=== PATIENT | female | born 1985 | race Caucasian/White ===

== ENCOUNTER 2018-03-25 15:57 | Emergency (ER) | payer MEDICAID, SELFPAY ==
[2018-03-25 15:59] VITALS: BP 143/107; PULSE 108; RESP 18; TEMP 36.7; O2SAT 100; BMI 44.9
--- NOTE | 2018-03-25 16:14 | EKG12_ITS ---
Test Reason : CP Blood Pressure : / mmHG Vent. Rate : 118 BPM Atrial Rate : 118 BPM P-R Int : 170 ms QRS Dur : 080 ms QT Int : 330 ms P-R-T Axes : 034 017 007 degrees QTc Int : 462 ms Sinus tachycardia Septal infarct , age undetermined T wave abnormality, consider inferior ischemia Abnormal ECG Confirmed by DAYANARA HESS, ZHEN ([id number]), deputy editor in chief HERMINIA ALCARAZ ([id number] on 03/27/2018 5:09:13 PM Referred By: BRADLEY Confirmed By:ZHEN NICHOLE MD
--- NOTE | 2018-03-25 16:15 | CT_ITS ---
STUDY: CT BRAIN WITHOUT CONTRAST REASON FOR EXAM: Female, 33 years old. Weakness. RADIATION DOSAGE (If Supplied By Facility): CTDIvol = ( 44.99 ) mGy, DLP = ( 863.60 ) mGycm TECHNIQUE: Transaxial CT imaging of the brain was performed without administration of intravenous contrast material. Individualized dose optimization techniques were used for this CT. COMPARISON: None. FINDINGS: There is no acute bleed or infarct. There are normal white matter tracts. The ventricles are normal in configuration. There is no hydrocephalus. The visualized paranasal sinuses are clear. The mastoid air cells are well aerated. There is no skull fracture. CT/Brain/Head without Contrast IMPRESSION: No acute intracranial abnormality. Electronically Signed: Toby Sheppard, at 17:58 EST Tel , Service support ,
--- NOTE | 2018-03-25 16:15 | CT_ITS ---
STUDY: CTA CHEST REASON FOR EXAM: Female, 33 years old. Left arm numbness, weakness, increased SOB and chest pain x several weeks. Hx Marcus's syndrome, aortic stenosis, hypertension, asthma. RADIATION DOSAGE (If Supplied By Facility): CTDIvol = ( 13.40 ) mGy, DLP = ( 621.11 ) mGycm TECHNIQUE: The examination was performed with the intravenous administration of 100mL ml of Isovue 370 contrast material. Post-processing of the angiographic images was performed, with multiplanar reformation and 3D reconstruction. Individualized dose optimization techniques were used for this CT. COMPARISON: None. FINDINGS: Normal enhancement of the main pulmonary artery and right and left pulmonary arteries. Normal enhancement of the bilateral peripheral pulmonary arteries. There is no demonstrated pulmonary embolism. Normal thoracic aorta and visualized great vessels. There is no demonstrated aortic dissection. Normal heart and pericardium. Normal mediastinum. Normal hilar regions. Normal visualized trachea and bronchi. The lungs are well expanded. Normal pulmonary parenchyma. Normal pleura. Normal chest wall structures. There are degenerative changes of thoracic spine. Normal visualized upper abdomen. CT/CTA Chest W/WO Contrast IMPRESSION: Normal CTA chest examination, without a demonstrated pulmonary embolism or arterial dissection. Electronically Signed: Jose Fonseca MD at 18:04 EST , Service support ,
--- NOTE | 2018-03-25 16:34 | RAD_ITS ---
STUDY: X-RAY CHEST REASON FOR EXAM: Female, 33 years old. Weakness with chest pain TECHNIQUE: Single view of the chest was obtained COMPARISON: October 09, 2016 chest radiograph FINDINGS: No lung consolidation, pleural effusion or pneumothorax. Chronic size is stable. Osseous structures demonstrate no acute abnormalities. Minimal widening of the mediastinum possibly projectional. IMPRESSION: No evidence for focal airspace disease. Minimal widening of the mediastinum possibly projectional. However correlation with clinical findings and chest CT as clinically deemed essential suggested Electronically Signed: Dariel Bain, at 16:55 EST Tel , Service support , RAD/Chest 1 View (Portable)
[2018-03-25] MEDS: Aspirin 81 MG TAB.CHEW 324 MG PO (16:37)
[2018-03-25] MEDS: Morphine 4 MG/ML Syringe IV (16:38)
[2018-03-25] MEDS: Ondansetron 4 MG/2 ML Vial IV (16:38)
[2018-03-25 16:40] LABS: Basophil# 0.05 X10^3/uL; Basophil% 0.6 % (0-1); Eosinophil# 0.17 X10^3/uL; Hematocrit 40.3 % (37-47); Hemoglobin 13.5 g/dl (12.0-15.0); Lymphocyte % 21.3 % (19-41); Mean Corp Hgb Conc 33.5 g/gl (32-36); Mean Corpuscular Hgb 30.5 pg (27.0-32.0); Mean Platelet Vol. 9.8 fl (6.2-12.0); Monocyte# 0.37 X10^3/uL; Monocyte% 4.4 % (0-10); Neutrophil # 5.96 X10^3/uL (2.7-7.7); Neutrophil % 70.3 % (47-70); Platelet Count 245 K/mm3 (150-450); RBC Distribution Width CV 13.3 % (11.6-14.6); RBC Distribution Width SD 43.3 fl (35.1-43.9); Red Blood Count 4.43 M/mm3 (4.2-5.4); White Blood Count 8.5 K/mm3 (4.4-11.0)
[2018-03-25 16:41] LABS: POSITIVE COUNT NO; POSITIVE DIFFERENTIAL NO; POSITIVE MORPHOLOGY NO
[2018-03-25 16:42] VITALS: O2SAT 97
[2018-03-25 16:57] LABS: Anion Gap 11 (5-15); BUN 10 mg/dL (7-18); BUN/Creat Ratio 15.3 RATIO (10-20); Calcium,Total 9.3 mg/dL (8.5-10.1); Chloride 104 mmol/L (98-107); Creatinine, Serum 0.65 mg/dL (0.55-1.02); EST Glomerular Filtration Rate 111 mL/min (>60); Est Glom Filt Rate - Afr Amer 134 mL/min (>60); Estimated Creatinine Clearance 187.75 ml/min; Glucose 209 mg/dL (74-106); Potassium 3.6 mmol/L (3.5-5.1); Sodium Level 140 mmol/L (136-145)
--- NOTE | 2018-03-25 17:22 | ED.VISSUMM ---
- ER Visit Summary Date of Service: 03/25/18 Chief Complaint: Left arm pain History of Present Illness: The patient is a 33 F presenting with left arm pain. She also complains of chest pain and shortness of breath which has been intermittent for the past 2 weeks. She has a history of chronic chest pain. She does not recall any injury to her left arm. She is right-handed. She initially complained of left arm weakness but states it is more of a pain with range of motion. She has pain with range of motion of her left arm. She has a history of bicuspid aortic valve, aortic aneurysm, Marcus syndrome. Physical Examination: Vitals are stable. Patient is afebrile. Alert no acute distress. HEENT exam is unremarkable. Neck is mild tenderness with no step-off Lungs are clear and equal bilaterally. Heart is regular rate and rhythm. Abdomen is soft nontender nondistended. Extremities left shoulder tenderness with active full range of motion Skin is warm and dry. No focal neurologic deficit. Normal strength and sensation. NIH 0. Remainder of exam is unremarkable. Emergency Department Course and Treatment: Patient was given aspirin, morphine, Zofran. EKG is sinus tachycardia 118, unchanged from previous. Chest x-ray shows no acute process. CT head shows no acute process. CTA chest is normal. CBC, chemistries unremarkable other than glucose of 209. Troponin is negative. Patient has had intermittent chest pain for the past 2 weeks. She declined delta troponin. She will follow-up with her primary care physician. She is advised to return to ED for worsening complaints. Disposition: Discharge home Impression: Chest pain, left arm pain This note was generated with [employer]ggi[employer] dictation software. It may contain incorrect words, spelling, and punctuation that were not noted in review of the chart prior to signing ED Disposition - Plan for ED Patient: Chief Complaint: Weakness Referrals: Yina Brock MD [Primary Care Provider] -
[2018-03-25 18:22] VITALS: BP 134/89; PULSE 119; RESP 23; O2SAT 99
[2018-03-25 18:36] VITALS: BP 114/89; PULSE 90; RESP 19; O2SAT 97
--- NOTE | 2018-03-25 18:37 | ED.DEP ---
ED Disposition - Plan for ED Patient: Chief Complaint: Weakness Instructions: ED Chest Pain Atypical Unkn Cause Referrals: Yina Brock MD [Primary Care Provider] -
== END 2018-03-25 18:46 | disposition home or self-care (01) ==
PROVIDERS: Emergency Provider Emergency Medicine; Family Provider Internal Medicine; PCP Internal Medicine
DX: R07.9 Chest pain, unspecified (principal); M79.602 Pain in left arm; R06.00 Dyspnea, unspecified; G89.29 Other chronic pain; Q23.1 Congenital insufficiency of aortic valve; I71.9 Aortic aneurysm of unspecified site, without rupture; Q96.9 Turner's syndrome, unspecified; J45.909 Unspecified asthma, uncomplicated; E03.9 Hypothyroidism, unspecified; Z79.899 Other long term (current) drug therapy
CPT/HCPCS: 70450; 71045; 71275; 80048; 84484; 85025; 93005; 96374; 96375; 99285; Q9967; A4216; J2405

== ENCOUNTER 2018-03-28 18:05 | Emergency (ER) | payer MEDICAID, SELFPAY ==
[2018-03-28 18:06] VITALS: BP 136/101; PULSE 124; RESP 16; TEMP 36.1; O2SAT 99; BMI 44.9
[2018-03-28] MEDS: 0.9% Normal Saline 1,000 ML 999 ML IV (19:54)
[2018-03-28] MEDS: Ondansetron 4 MG/2 ML Vial IV (19:54)
[2018-03-28 19:55] VITALS: BP 148/118; BP 149/114; BP 153/107; PULSE 115
[2018-03-28 20:06] VITALS: BP 149/114; PULSE 127; RESP 18; O2SAT 100
[2018-03-28 20:16] LABS: Absolute Lymphocyte Count 1.92 X10^3/ul (0.83-4.51); Absolute Neutrophil Count 4.9 X10^3/uL (2.0-7.7); Basophil# 0.03 X10^3/uL; Basophil% 0.4 % (0-1); Eosinophil# 0.11 X10^3/uL; Eosinophils% 1.5 % (0-5); Hematocrit 37.7 % (37-47); Hemoglobin 12.4 g/dl (12.0-15.0); Lymphocyte # 1.92 X10^3/ul (4.0); Lymphocyte % 25.5 % (19-41); Mean Corp Hgb Conc 32.9 g/gl (32-36); Mean Corpuscular Volume 91.3 fL (81-99); Mean Platelet Vol. 10.1 fl (6.2-12.0); Monocyte# 0.46 X10^3/uL; Monocyte% 6.1 % (0-10); Neutrophil # 4.89 X10^3/uL (2.7-7.7); Neutrophil % 64.8 % (47-70); Platelet Count 242 K/mm3 (150-450); RBC Distribution Width CV 13.1 % (11.6-14.6); RBC Distribution Width SD 43.5 fl (35.1-43.9); Red Blood Count 4.13 M/mm3 (4.2-5.4); White Blood Count 7.5 K/mm3 (4.4-11.0)
--- NOTE | 2018-03-28 20:17 | ED.RN ---
small amount of soft black stool was noted in hat after going to the bathroom.
[2018-03-28 20:20] LABS: POSITIVE COUNT NO; POSITIVE DIFFERENTIAL NO; POSITIVE MORPHOLOGY NO
--- NOTE | 2018-03-28 20:32 | ED.DCSUM_ITS ---
History of Present Illness Chief Complaint: GI Bleed Informant: Patient Onset: 06-15 Context: Gradual Onset Timing: Intermittent - worse today Quality: black Location: stool Current Severity: Moderate Maximum Severity: Moderate Worsened by: nothing in particular Relieved by: nothing Associated Symptoms: today, hematemesis. 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 Does not take any other NSAIDs. Had an EGD at one point in the past but no known history of peptic ulcer disease. Some lightheadedness today but no near syncope. History of intermittent chest pain and shortness of breath, those symptoms are chronic and unchanged in the last several days. Prior similar symptoms: No Recent Illness/Hospitalization: No - Past Medical History (1) Marcus syndrome Status: Chronic (2) Congenital bicuspid aortic valve Status: Chronic (3) Pseudocoarctation of aorta, congenital Status: Chronic Past Medical History - Allergies and Home Meds Allergies/Adverse Reactions: Allergies doxycycline Adverse Reaction (Verified 03/28/18 18:06) Abd cramps/diarrhea Primary Care Physician: Yina Brock MD [Primary Care Provider] - Surgical History: appendectomy Smoking Status: Never smoker - Family History Maternal Family History: Reports: Diabetes Review of Systems General: Reports: Malaise. Denies: Chills, Fever, Sweats Eyes: Denies: Visual changes - bilaterally, Diplopia ENT: Denies: Rhinorrhea, Sore throat Cardiovascular: Reports: Chest pain. Denies: Palpitations Respiratory: Reports: Dyspnea. Denies: Cough, Sputum, Dyspnea on exertion Gastrointestinal: Reports: Abdominal pain, Nausea, Vomiting, Melena. Denies: Diarrhea, Hematochezia Genitourinary: Denies: Dysuria, Hematuria, Frequency Musculoskeletal: Denies: Back pain, Swelling, Extremity Pain Skin: Denies: Rash, Wounds Neurological: Denies: Headache, Weakness, Numbness Allergy: Denies: Swelling of the mouth, Swelling of the tongue Physical Exam Vital Signs/Narrative: Vital Signs Temp Pulse Pulse Pulse Pulse Resp BP 03/28/18 20:06 127 H 18 149/114 H 03/28/18 19:55 115 H 115 H 115 H 03/28/18 18:06 97 F L 124 H 16 136/101 H BP BP BP Pulse Ox 01/16/19 20:06 100 03/28/18 19:55 153/107 H 148/118 H 149/114 H 03/28/18 18:06 99 Inital Vital Signs reviewed: Yes General: Well nourished, Well developed, Obese, - - nad Head: Normocephalic, Atraumatic Eyes: Perrl, EOMI ENT: Moist mucous membranes, No rhinorrhea Neck: Supple, Nontender Cardiovascular: Regular rate, Regular rhythm, No murmurs Respiratory: No distress, CTA bilaterally, Chest nontender Abdomen: Soft, Nontender, Nondistended, Normal bowel sounds Rectal: Guaiac positive - black stool, no gross blood, Nontender Back: Nontender, Normal Inspection Extremities: Nontender, No edema Skin: Normal color, No rash Neurological: Alert, Oriented x3, Cranial nerves II-XII grossly intact, Normal Strength, Normal Sensation Psychological: Normal affect Diagnostic/Tx/Re-eval 03/28/18 20:30 Stool Stool Occult Blood (ZACK) - Final Occult Blood Positive Laboratory Results 03/28/18 03/28/18 03/28/18 19:14 19:14 19:14 WBC 7.5 RBC 4.13 L Hgb 12.4 Hct 37.7 MCV 91.3 MCH 30.0 MCHC 32.9 RDW 13.1 RDW Differential 43.5 Plt Count 242 MPV 10.1 Immature Gran % (Auto) 1.700 H Neut % (Auto) 64.8 Lymph % (Auto) 25.5 Russell % (Auto) 6.1 Eos % (Auto) 1.5 Baso % (Auto) 0.4 Absolute Neuts (auto) 4.9 Absolute Lymphs (auto) 1.92 Total Counted Not Reportable Sodium 139 Potassium 3.8 Chloride 106 Carbon Dioxide 24.0 Anion Gap 9 BUN 17 Creatinine 0.58 Estim Creat Clear Calc 210.41 Est GFR (MDRD) Af Amer 152 Est GFR (MDRD) Non-Af 125 BUN/Creatinine Ratio 29.1 H Glucose 127 H Calcium 9.3 Blood Type O POSITIVE Antibody Screen NEGATIVE - Medical Decision Making Hemoglobin is 12.4, her BUN is not elevated, as one would expect with an upper GI bleed. However, with hematemesis and melena, I suspect that she does indeed have an upper GI bleed. She has seen no bright red blood per rectum or dark red blood, and her hemoglobin is stable, so she probably has a stable bleed. She wa s tachycardic here for a while so we monitored her here for an extended period of time, but it seemed that she was having episodes of bronchospasm and every time she coughed she would send her heart rate into the 120s for period of time but it would come back down to around 100. She has a history of tachycardia as well and states that is not unusual for her. She does not feel dizzy after liter of fluid. She kept down oral liquids and ice chips after Zofran and Phenergan, and is feeling better. I offered admission but she prefers to go home if able, I think that is a reasonable thing to try at this time. She has no insurance and prefers not to be admitted if possible. She will be referred to a PCP and given a discount prescription card, she was given Protonix 80 mg IV here and will be prescribed PPI to take at home and advised to follow-up. Encouraged to return for worsening or inability to keep oral pills/liquids down. She is comfortable with this plan. Also, left a message with social work so that they may check on patient's ability to get medications as an outpatient, and to check on patient's status. ED Disposition - Plan for ED Patient: Disposition: Home or Assisted Living Chief Complaint: GI Bleed Diagnosis: Upper GI bleeding Instructions: ED Bleed UGI Stable Prescriptions: Ondansetron [Zofran Odt] 8 mg PO Q8H PRN PRN #12 tab PRN Reason: Nausea Omeprazole 40 mg PO DAILY #30 capsule.dr Referrals: Yina Brock MD [Primary Care Provider] - As soon as possible
[2018-03-28 21:03] LABS: Anion Gap 9 (5-15); BUN 17 mg/dL (7-18); BUN/Creat Ratio 29.1 RATIO (10-20); Calcium,Total 9.3 mg/dL (8.5-10.1); Chloride 106 mmol/L (98-107); Creatinine, Serum 0.58 mg/dL (0.55-1.02); EST Glomerular Filtration Rate 125 mL/min (>60); Est Glom Filt Rate - Afr Amer 152 mL/min (>60); Glucose 127 mg/dL (74-106); Potassium 3.8 mmol/L (3.5-5.1); Sodium Level 139 mmol/L (136-145)
[2018-03-28] MEDS: proMETHazine 25 MG/ML Syringe 12.5 MG IV (21:23)
[2018-03-28 21:25] VITALS: BP 143/95; PULSE 119; RESP 19; O2SAT 98
--- NOTE | 2018-03-28 22:13 | ED.RN ---
PATIENT KEEPS HAVING THESE COUGHING EPISODES THAT TAKE HER BREATH. HX OF ASTHMA, I WILL LET DR. THAYER KNOW.
--- NOTE | 2018-03-28 22:24 | ED.RN ---
DR. CHOU MADE AWARE OF PATIENT'S COUGH. I LISTENED TO HER LUNGS AND THEY ARE CLEAR.
[2018-03-28 23:18] VITALS: BP 129/83; PULSE 108; RESP 13; O2SAT 96
[2018-03-28 23:43] VITALS: BP 114/81; PULSE 99; RESP 21; O2SAT 98
--- OUTSIDE RECORDS SUMMARY | 2018-06-02 17:06 | XMS RPT_ITS ---
:1985 Author Organization OH[facility] Care Team Providers Name Role Phone RAGHAV QURESHI (HUMBERTO) Referring Unavailable Talampas, Yina Primary Care Unavailable Lise Chan Attending Unavailable Talampas, Yina Primary Care Unavailable LISA THAYER Attending Unavailable Talampas, Yina Primary Care Unavailable David Wellington Admitting Unavailable David Wellington Attending Unavailable Mac Olivarez Consulting Unavailable David Wellington Attending Unavailable Davidampas, Yina Primary Care Unavailable David Wellington Admitting Unavailable David Wellington Attending Unavailable Yina Brock Primary Care Unavailable Mac Olivarez Consulting Unavailable David Wellington Consulting Unavailable PROBLEMS PROBLEMS No Problem Records FoundPROCEDURES PROCEDURES No Procedure Records FoundRESULTS RESULTS 12 LEAD ELECTROCARDIOGRAM Observed: 04/02/2018 Status: F Source: [place] 9:01 AM [facility] Cardiovascular Services [address] [place] [address] 12 Lead EKG 03/31/18 0545 MR#: [id number] Acct: [id number] Name: JULIANNA BRIDGES Rep #: [id number] : 1985 33 From: Mark Sheehan MD Attending Dr: David Wellington MD Status: DIS DIMITRIS Ordering Dr: Miguel Ly MD Date: 03/31/18 Location: [facility] Sex: F C Admitted: 03/31/18 Test Reason : GI BLEED Blood Pressure : / mmHG Vent. Rate : 095 BPM Atrial Rate : 095 BPM P-R Int : 158 ms QRS Dur : 072 ms QT Int : 380 ms P-R-T Axes : -05 -02 -03 degrees QTc Int : 477 ms Normal sinus rhythm Normal ECG Confirmed by DAYANARA HESS, MARK ([id number]), editor in chief NOE MONTES DE OCA ([id number]) on 04/02/2018 9:01:06 AM Referred By: GUILLERMO Confirmed By:MARK SHEEHAN MD 04/02/18 0901 Date Mark Sheehan MD CC: David Wellington MD; Miguel Ly MD; Yina Brock MD Signed DISCHARGE SUMMARY Observed: 04/01/2018 Status: F Source: [place] 10:17 AM [facility] REPOSITORY [facility] Medical Records Department [address] [place] [address] Discharge Summary 04/01/18 1006 MR#: [id number] Acct: [id number] Name: JULIANNA BRIDGES Rep #: [id number] : 1985 33 From: Davdi Wellington MD PCP: Yina Brock MD Status: ADM DIMITRIS Y Location: [place] [address] Discharge Date and Diagnosis - Problem List Patient Problems: Active and Suspected Problems Upper GI bleed (Acute) Date of Admission: 03/31/18 Date of Discharge: 04/01/18 - Primary Discharge Diagnosis Active and Suspected Problems Upper GI bleed (Acute) - Secondary Discharge Diagnosis Chronic Problems Marcus syndrome (Chronic) Hypothyroidism (Chronic) 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 Upper GI bleed secondary to gastritis: An NG tube was placed in the ED. Patient admitted to the stepdown unit started on Protonix drip, ordered H AND H every 6 typed and screened and consultation was placed to general surgery did speak to Dr. Olivarez patient underwent EGD by Dr. Olivarez on 04/01/2018 findings included gastritis. Patient was discharged home on PPI. 2. 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 Hypertension-blood pressure controlled, home medications continued with dose adjustment as needed 4. Hypothyroidism-patient is on levothyroxine home dose continued 5. Dyslipidemia-patient is on statin therapy, continued at home dose 6. DVT prophylaxis bilateral SCDs Patient Problems: Active and Suspected Problems Upper GI bleed (Acute) - Physical Exam General: Alert HEENT: Atraumatic Neck: Supple Lungs: Clear to auscultation Cardiovascular: Regular rate Psych/Mental Status: Normal Affect Vital Signs Temp Pulse Resp BP Pulse Ox 97.8 F 86 16 112/71 99 04/01/18 09:30 04/01/18 09:33 04/01/18 09:30 04/01/18 09:30 04/01/18 09:30 Oxygen Delivery Method Room Air Weight: 100.4 kg Body Mass Index (BMI) 46.2 Intake and Output for Last 24 Hours Intake Total 2635 / 2635 1070 / 1070 Output Total 800 / 800 Balance 1835 / 1835 1070 / 1070 Laboratory Tests Past 24 Hrs WBC RBC Hgb 10.9 L 10.7 L Hct 33.2 L 32.6 L WBC 8.4 RBC 3.65 L Hgb 11.0 L Cancelled Hct 33.7 L Cancelled MCV 92.3 MCH 30.1 MCHC 32.6 RDW 13.4 RDW Differential 44.7 H WBC Discharge Diet: No Restrictions Home Medications: Medications to take at Discharge Albuterol Sulfate [Proventil Hfa] 6.7 gm IH PRN PRN 02/21/13 Metoprolol Tartrate [Lopressor (beta claire)] 50 mg PO BID 02/21/13 Albuterol Aerosols [Ventolin Aerosols] 2.5 mg INHALATION Q4HWA.RT PRN #25 vial.neb. 01/01/16 Losartan Potassium 50 mg PO DAILY 10/09/16 Atorvastatin Calcium [Lipitor] 20 mg PO QHS 03/25/18 Levothyroxine [Synthroid] 150 mcg PO DAILY 03/25/18 Aspirin [Aspirin, Baby] 81 mg PO QHS 03/28/18 Pantoprazole Sodium [Protonix] 40 mg PO DAILY #90 tablet 04/01/18 Following Prescrptions Were Given to Patient: Pantoprazole Sodium [Protonix] 40 mg PO DAILY #90 tablet Primary Care Physician: Yina Brock MD [Primary Care Provider] - Disposition: Home Minutes spent on discharge:: 35 Patient Condition:: Stable Medical Necessity - Tobacco Use Smoking Status: Never smoker Meaningful Use Info Meaningful Use Diagnoses (Choose all that apply): None applicable Code Visit OBSV E AND M: 64512 Observation care discharge 04/01/18 1017 <Electronically signed by David Wellington MD> Date David Wellington MD Cosigner Signature (if applicable): Date CC: David Wellington MD; Yina Brock MD Signed DISCHARGE INSTRUCTION Observed: 04/01/2018 Status: F Source: [place] 10:08 AM [facility] Medical Records Department [address] [place] [address] Instructions for Home/Discharge Instructions 04/01/18 1007 MR#: [id number] Acct: [id number] Name: JULIANNA BRIDGES Rep #: [id number] : 1985 33 From: David Wellington MD PCP: Yina Brock MD Status: ADM DIMITRIS - Discharge Diagnoses Current Active Problems: Current Active and Chronic Problems Hypothyroidism (Chronic) Upper GI bleed (Acute) You will use the following diet at home:: No restrictions Discharge Activity: Return to Normal Activity Allergies/Adverse Reactions: Allergies doxycycline Adverse Reaction (Verified 03/31/18 05:25) Abd cramps/diarrhea Medications to take at Discharge Albuterol Sulfate [Proventil Hfa] 6.7 gm IH PRN PRN 02/21/13 Metoprolol Tartrate [Lopressor (beta claire)] 50 mg PO BID 02/21/13 Albuterol Aerosols [Ventolin Aerosols] 2.5 mg INHALATION Q4HWA.RT PRN #25 vial.neb. 01/01/16 Losartan Potassium 50 mg PO DAILY 10/09/16 Atorvastatin Calcium [Lipitor] 20 mg PO QHS 03/25/18 Levothyroxine [Synthroid] 150 mcg PO DAILY 03/25/18 Aspirin [Aspirin, Baby] 81 mg PO QHS 03/28/18 Pantoprazole Sodium [Protonix] 40 mg PO DAILY #90 tablet 04/01/18 The following prescriptions were given: Pantoprazole Sodium [Protonix] 40 mg PO DAILY #90 tablet Primary Care Physician: Yina Brock MD [Primary Care Provider] - Please follow up with your Primary Care Physician in: in 1- 2 weeks Test Results: Test results from this visit will be discussed in further detail at your follow-up appointment, if applicable. Proposed Discharge Date: 04/01/18 04/01/18 1008 <Electronically signed by David Wellington MD> Date David Wellington MD CC: Mac Olivarez MD; Yina Brock MD Signed HH, HEMOGLOBIN AND Collected: 04/01/2018 Status: F Source: [place] HEMATOCRIT 8:50 AM [facility] Order Comment: PT DOWN FOR ENDO. SPOKE WITH ALISHA SUGAR LABORATORY ASSISTANT [facility] WHEN PT RETURNS. TYPE CODE TESTS RESULT OUT OF RANGE REFERENCE UNITS LAB L100.1300 12.0-15.0 g/dl Low HGB 10.4 LAB L100.1400 37-47 % Low HCT 32.0 Performed By: #### L100.0600 #### [facility] [address] [place], [place], [address] GASTRIC BIOPSY Observed: 04/01/2018 Status: F Source: [place] 8:05 AM [facility] Patient: JULIANNA BRIDGES : 1985 (33/F) Acct Num: [id number] Phys: Amish HESS, Unit Num: [id number] Loc: [facility] [id number] Specimen: [id number] Received: 04/02/18 - 1016 Spec Type: Gastric Bx TISSUES 1 TISSUES: Gastric mucous membrane COMMENT The results of immunohistochemistry for Helicobacter pylori will be reported separately ([id number]). GROSS DESCRIPTION Received in fixative is one container labeled with the patient's name and designated antral biopsy. The specimen consists of one irregular fragment of light driscoll soft tissue that measures 0.6 x 0.2 x 0.1 cm. The specimen is totally submitted in one cassette. / AM:trice 04/02/18 TC:3 CPT: 33241 HEADER OPERATION: [place] PRE[place]OP DIAGNOSIS: GIB TISSUE SUBMITTED: Antral biopsy for H. pylori and pathology MICROSCOPIC DESCRIPTION Slides are reviewed. MICROSCOPIC DIAGNOSIS Gastric antrum, biopsy: Mild chronic gastritis. AM:trice 04/03/18 Signed Hunter Camarillo, 04/03/18 <signature on file> Performed By: #### PGASB #### [facility] [address] [place], [address] IMMUNOHISTOCHEMISTRY Observed: 04/01/2018 Status: F Source: [place] 8:05 AM [facility] Patient: JULIANNA BRIDGES : 1985 (33/F) Acct Num: [id number] Phys: David Wellington MD Unit Num: [id number] Loc: U [id number] Specimen: [id number] Received: 04/02/18 - 1156 Spec Type: IMMUNO TISSUES 1 TISSUES: Gastric mucous membrane SPECIMEN INFORMATION: Tissue Source: Antral biopsy Clinical Info: GIB Specimen Number: [id number] CPT code: 42160 METHODOLOGY: Deparaffinized sections of prefer/formalin-fixed tissue or PAP/DQ stained slides are incubated with monoclonal/polyclonal antibodies/oligonucleotide probes. Localization is made via biotin free immunoperoxidase method. Appropriate controls are performed and reacted as expected. Results on target cell population are indicated in the following table: RESULTS: ANTIBODY / CLONE RESULT H Pylori (polyclonal) negative These tests were developed and their performance characteristics determined by [facility]. They may not have been cleared or approved by the U.S. Food and Drug Administration. The FDA has determined that such clearance or approval is not necessary. INTERPRETATION: Antral biopsy: Negative for Helicobacter pylori organisms. AM:trice 04/03/18 PHYSICIAN AND INSTITUTION [place] [address] Signed Hunter Camarillo, DO 04/03/18 <signature on file> Performed By: #### PIMM #### [facility] [address] [place] [address]. [place], [place], [id number] CBC-COMPLETE BLOOD CNT Collected: 04/01/2018 Status: F Source: [place] NO DIFF 2:34 AM [facility] TYPE CODE TESTS RESULT OUT OF RANGE REFERENCE UNITS LAB L100.1000 4.4-11.0 K/mm3 Normal WBC 8.4 LAB L100.1200 4.2-5.4 M/mm3 Low RBC 3.65 LAB L100.1300 12.0-15.0 g/dl Low HGB 11.0 LAB L100.1400 37-47 % Low HCT 33.7 LAB L100.1500 81-99 fL Normal MCV 92.3 LAB L100.1600 27.0-32.0 pg Normal MCH 30.1 LAB L100.1700 32-36 g/gl Normal MCHC 32.6 LAB L100.1810 11.6-14.6 % Normal RDW CV 13.4 LAB L100.1820 35.1-43.9 fl High RDW SD 44.7 LAB L100.1900 150-450 K/mm3 Normal PLT 248 LAB L100.2000 6.2-12.0 fl Normal MPV 9.6 Performed By: #### L100.0500 #### [facility] [address] [place], [address] BASIC METABOLIC Collected: 04/01/2018 Status: F Source: [place] PROFILE (BMP) 2:34 AM [facility] TYPE CODE TESTS RESULT OUT OF RANGE REFERENCE UNITS LAB L501.0100 74-106 mg/dL High GLU 135 Result Comment: Fasting Glucose result greater than or equal to 126 mg/dL suggests DIABETES MELLITUS per A.D.A. criteria. Please note revised GLUCOSE reference range effective 2017. LAB L501.1000 7-18 mg/dL Normal BUN 8 LAB L501.1100 0.55-1.02 mg/dL Normal CREAT,SERUM 0.64 Result Comment: The validity of the calculated GFR AND GFRAA in patients over 70 years has not been determined. Clinical correlation is essential. LAB L501.1110 >60 mL/min Normal EST GFR 113 Result Comment: Non- GFR Calc LAB L501.1115 >60 mL/min Normal EST GFR - AA 136 Result Comment: GFR Calc LAB L501.1255 ml/min Normal Estimated CRCL 196.31 LAB L501.1300 10-20 RATIO BUN/CRE Normal 12.5 LAB L501.2200 8.5-10 mg/dL .1 CA Normal 8.5 LAB L501.5300 136-14 mmol/L 5 NA Normal 139 LAB L501.5600 3.5-5. mmol/L 1 K Normal 3.9 LAB L501.5900 98-107 mmol/L CL Normal 107 LAB L501.6100 21.0-3 mmol/L 2.0 CO2 Normal 25.0 LAB L501.6200 5-15 GAP Normal 7 Performed By: #### L500.2500 #### [facility] [address] [place], [address] PROTHROMBIN TIME W/INR Collected: 04/01/2018 Status: F Source: [place] 2:34 AM [facility] TYPE CODE TESTS RESULT OUT OF RANGE REFERENCE UNITS LAB L300.4150 11.7-14.9 SECONDS Normal PROTIME 13.8 LAB L300.4200 Normal INR 1.1 Performed By: #### L300.3900, L300.4310 #### [facility] [address] [place], [address] PARTIAL THROMBOPLAST Collected: 04/01/2018 Status: F Source: [place] TIME 2:34 AM [facility] TYPE CODE TESTS RESULT OUT OF RANGE REFERENCE UNITS LAB L300.4310 24.1-36.2 Seconds Normal PTT 26.9 Performed By: #### L300.3900, L300.4310 #### [facility] [address] [place], [address] HH, HEMOGLOBIN AND Collected: 03/31/2018 Status: F Source: [place] HEMATOCRIT 8:32 PM [facility] TYPE CODE TESTS RESULT OUT OF RANGE REFERENCE UNITS LAB L100.1300 12.0-15.0 g/dl Low HGB 10.7 LAB L100.1400 37-47 % Low HCT 32.6 Performed By: #### L100.0600 #### [facility] [address] [place], [address] ,URINE Collected: 03/31/2018 Status: F Source: [place] 2:05 PM [facility] Order Comment: Has pt arrived? Y TYPE CODE TESTS RESULT OUT OF REFERENCE UNITS RANGE LAB L400.8000 Negative Normal HCGUQUAL Negative Result Comment: Very dilute urine specimens, as indicated by a low specific gravity, may not contain in store representative levels of hCG. If is still suspected, a first morning urine specimen should be collected 48 hours later and tested. Performed By: #### L400.7600 #### [facility] [address] [place], [address] HH, HEMOGLOBIN AND Collected: 03/31/2018 Status: F Source: [place] HEMATOCRIT 1:53 PM [facility] TYPE CODE TESTS RESULT OUT OF RANGE REFERENCE UNITS LAB L100.1300 12.0-15.0 g/dl Low HGB 10.9 LAB L100.1400 37-47 % Low HCT 33.2 Performed By: #### L100.0600 #### [facility] [address] [place], [address] HH, HEMOGLOBIN AND Collected: 03/31/2018 Status: F Source: [place] HEMATOCRIT 8:50 AM [facility] TYPE CODE TESTS RESULT OUT OF RANGE REFERENCE UNITS LAB L100.1300 12.0-15.0 g/dl Low HGB 11.5 LAB L100.1400 37-47 % Low HCT 34.4 Performed By: #### L100.0600 #### [facility] [address] [place], [address] HISTORY AND PHYSICAL Observed: 03/31/2018 Status: F Source: [place] EXAM 7:39 AM [facility] Medical Records Department [address] [place] [address] History and Physical 03/31/18 0718 MR#: [id number] Acct: [id number] Name: JULIANNA BRIDGES Rep #: [id number] : 1985 33 From: [place] Wellington MD PCP: Yina Brock MD Status: REG ER Y Location: ED Problem List (1) Hypothyroidism Status: Chronic (2) Anomalous pulmonary venous return determined by imaging Status: Chronic (3) Chest pain at rest Status: Resolved (4) Shortness of breath at rest Status: Resolved (5) Tachycardia Status: Chronic (6) Congenital bicuspid aortic valve Status: Chronic (7) Pseudocoarctation of aorta, congenital Status: Chronic (8) Marcus syndrome Status: Chronic (9) Upper GI bleed Status: Acute History of Present Illness Date of Admission: 03/31/18 Chief Complaint: Vomiting blood The patient is a 33 year old F with past medical history significant for Marcus syndrome, hypothyroidism, history of bicuspid aortic valve with aortic stenosis who presented with vomiting blood. Patient symptoms started about 2 AM on the morning of her presentation. Prior to that patient had experienced persistent nausea for about 3 days duration. On further questioning patient denied any frequent use of nonsteroidal anti-inflammatory drugs. She did notice murphy blood in her vomitus on the morning of her presentation subsequently presented to the emergency department. In the ED an NG tube was inserted with bloody return. Started on Protonix drip and admitted for subsequent management. 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, congenital (Chronic) Tachycardia (Chronic) Allergies doxycycline Adverse Reaction (Verified 03/31/18 05:25) Abd cramps/diarrhea Home Medications: Ambulatory Orders Medication Instructions Recorded Albuterol Sulfate [Proventil Hfa] 6.7 gm IH PRN PRN 02/21/13 Metoprolol Tartrate [Lopressor 50 mg PO DAILY 02/21/13 Surgical History: appendectomy Smoking Status: Never smoker - *Family History Maternal History Items: Diabetes Review of Systems Constitutional: Denies: Anorexia, Chills, Fever, Night Sweats, Weight Change HEENT: Denies: Head Aches, Sinus Congestion, Sinus Drainage Cardiovascular: Denies: Chest Pain, Orthopnea, Palpitations, Paroxysmal Noc. Dyspnea Respiratory: Denies: Cough, Shortness of breath at rest, Shortness of breath upon exertion, Sputum production Gastrointestinal: Reports: Hematemesis, Nausea, Vomiting. Denies: Abdominal Pain, Hematochezia, Melena Genitourinary: Denies: Dysuria, Frequency, Hematuria, Urgency Musculoskeletal: Denies: Joint Pain, Joint Tenderness Skin: Denies: Rash Neurological: Denies: Focal weakness, Numbness, Tingling Psychiatric: Denies: Homicidal Ideations, Suicidal Ideations Hematologic/ Lymphatic: Denies: Easy Bruising, Easy Bleeding VTE Information - Inpt Only VTE Present on Admission: No VTE Mechan Device Prophylaxis: Knee High DONITA Hose VTE Pharm Prophylaxis ordered?: No Reason prophylaxis not ordered:: Medical Contraindication Patient Problems: Active and Suspected Problems Upper GI bleed (Acute) Objective: GENERAL: cooperative HEENT: Atraumatic; EYES; Anicteric, NECK; webbed neck RESPIRATORY: Diminished to auscultation bilaterally, CARDIOVASCULAR: Regular S1 S2, GI: soft, non-tender, normoactive bowel sounds, : No Renal angle tenderness; EXTREMITIES: No edema, no clubbing, MUSCULOSKELETAL: No Joint Tenderness; NEURO: Awake; no lateralizing signs. SKIN: No Rash PSYCH; Normal affect - Physical Exam Vital Signs Temp Pulse Resp BP Pulse Ox 98.3 F 100 16 147/105 H 98 03/31/18 05:23 03/31/18 05:23 03/31/18 05:23 03/31/18 05:23 03/31/18 05:23 Oxygen Delivery Method Room Air Weight: 99.3 kg Body Mass Index (BMI) 45.7 Laboratory Tests Past 24 Hrs Assessment/Plan All Active Problems Upper GI bleed (Acute) Chest pain at rest (Resolved) Shortness of breath at rest (Resolved) Patient is a 33-year-old lady presented with hematemesis after a 3-day history of persistent nausea vomiting 1. Upper GI bleed do suspect possible Ave-Clay tear versus gastritis: An NG tube was placed in the ED. Patient has been admitted to the stepdown unit started on Protonix drip, ordered H AND H every 6 typed and screened and consultation was placed to general surgery did speak to Dr. Olivarez 2. 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 Hypertension-blood pressure controlled, home medications continued with dose adjustment as needed 4. Hypothyroidism-patient is on levothyroxine home dose continued 5. Dyslipidemia-patient is on statin therapy, continued at home dose 6. DVT prophylaxis bilateral SCDs Code Visit OBSV E AND M: 04312 Initial observation care L3 03/31/18 0738 <Electronically signed by David Wellington MD> Date David Wellington MD Cosigner Signature: Date (if applicable) CC: David Wellington MD; Yina Brock MD Signed EMERGENCY DEPARTMENT Observed: 03/31/2018 Status: F Source: [place] SUMMARY 6:50 AM [facility] Medical Records Department [address] [place] [address] Emergency Department Summary 03/31/18 0645 MR#: [id number] Acct: [id number] Name: JULIANNA BRIDGES Rep #: [id number] : 1985 33 From: Miguel Ly MD PCP: Yina Brock MD Status: REG ER - ER Visit Summary Date of Service: 03/31/18 Chief Complaint: Hematemesis History of Present Illness: The patient is a 33 F who presents with hematemesis. Over the last 3 hours she has had 6-8 episodes of bright red hematemesis. She did have blood streaks with the first episode. She was recently seen for similar symptoms. However her laboratory studies were unremarkable. She was given IV Protonix and discharged with a prescription for PPI therapy. She is on a baby aspirin but no other anticoagulation. She also complains of epigastric cramping and burning abdominal pain. She is also been having some intermittent loose stools for about 1 week. No fevers. She does complain of chest pain shortness of breath and pain into her back and neck. She denies near syncope. Physical Examination: Heart rate 100 vitals otherwise unremarkable Moist mucous membranes Heart regular rhythm tachycardia Lungs are clear Abdomen soft nondistended she has some mild nonfocal diffuse tenderness Alert Test Results: EKG shows normal sinus rhythm at a rate of 95. Labs are notable for hemoglobin 11.6 is down from previous of 12.4 but she did receive IV fluids on last visit. INR normal. Hepatic function lipase notable for ALT 80, AST 38, lipase is normal. Troponin is negative. Chest x-ray on my review is unremarkable. Abdominal x-ray shows NG tube to be in good position. Emergency Department Course and Treatment: Patient was treated with IV fluids and Zofran for nausea. She was given IV Protonix. Given her report of 6- 8 episodes of bright red hematemesis I did place an NG to evaluate current bleeding. She did have 100 cc of bright red tinged liquid. Given second visit and multiple reported episodes of hematemesis I did feel she would require hospitalization for further evaluation and management. Treatment Plan: [] Disposition: Admit Impression: Upper GI bleed This note was generated with [employer] dictation software. It may contain incorrect words, spelling, and punctuation that were not noted in review of the chart prior to signing ED Disposition - Plan for ED Patient: Chief Complaint: GI Bleed Referrals: Yina Brock MD [Primary Care Provider] - What to do if you have Problems For any increased pain, shortness of breath, bleeding, nausea or vomiting, chest pain, or any unexpected problems, contact your Primary Care Provider. Call [facility] ([phone]) or report to the closest Emergency Room. Call 911 if necessary. 03/31/18 0650 <Electronically signed by Miguel Ly MD> Date Miguel Ly MD Cosigner Signature (If Indicated): Date CC: Yina Brock MD CHEST 1 VIEW Observed: 03/31/2018 Status: F Source: [place] (PORTABLE) 5:39 AM [facility] Imaging Services [address] [place] [id number] Chest 1 View (Portable) MR#: [id number] Acct: [id number] Name: JULIANNA BRIDGES Rep #: [id number] : 1985 F 33 From: Savi Alcaraz MD PCP: Yina Brock MD Status: REG ER Study: Chest 1 View (Portable) Date of Exam: 03/31/18 Exam# [id number] Ordering Dr: Miguel Ly MD STUDY: X-RAY CHEST REASON FOR EXAM: Female, 33 years old. Bloody emesis starting this morning. TECHNIQUE: Single AP portable view of the chest. COMPARISON: March 25, 2018. FINDINGS: Enteric tube is present with the distal end below the inferior edge of the image and below the hemidiaphragms. Cardiac monitoring leads are present. The lungs are clear and expanded. There is no demonstrated pleural abnormality. There is borderline cardiomegaly. Normal mediastinum and tracy. Normal visualized pulmonary arteries. There is atherosclerotic calcification of the aortic arch with tortuosity. There is demineralization of the osseous structures. There are degenerative changes of both shoulders. There is no demonstrated abnormality of the visualized soft tissue structures of the upper abdomen. RAD/Chest 1 View (Portable) IMPRESSION: 1. Borderline cardiomegaly with without evidence of acute cardiopulmonary disease. 2. Appropriate positioning of enteric tube. Electronically Signed: Savi Alcaraz MD at 7:01 EST , Service support , CC: Miguel Ly MD; Yina Brock MD Corrections Unit Supervisor: Signed ABDOMEN SINGLE VIEW Observed: 03/31/2018 Status: F Source: [place] (PORTABLE) 5:39 AM [facility] Imaging Services [address] [place] [id number] Abdomen Single View (Portable) MR#: [id number] Acct: [id number] Name: JULIANNA BRIDGES Rep #: [id number] : 1985 F 33 From: Savi Alcaraz MD PCP: Yina Brock MD Status: REG ER Study: Abdomen Single View (Portable) Date of Exam: 03/31/18 Exam# [id number] Ordering Dr: Miguel Ly MD STUDY: X-RAY - ABDOMEN/PELVIS REASON FOR EXAM: Female, 33 years old. Nasogastric tube placement. TECHNIQUE: Single AP view of the abdomen / pelvis. COMPARISON: CT of the abdomen and pelvis dated October 09, 2016. FINDINGS: Normal visualized lung bases. There is an unremarkable bowel gas pattern. Enteric tube is visible with the distal in the left upper quadrant, probably in the stomach. There is no obvious organomegaly, mass or dilated bowel. Normal soft tissue structures. There are diffuse degenerative changes of the visualized lumbar spine. RAD/Abdomen Single View (Portable) IMPRESSION: Appropriate positioning of enteric tube. Electronically Signed: Savi Alcaraz MD at 7:06 EST , Service support , CC: Miguel Ly MD; Yina Brock MD Corrections Unit Supervisor: Signed CBC W/DIFF, AUTOMATED Collected: 03/31/2018 Status: F Source: [place] 5:25 AM [facility] TYPE CODE TESTS RESULT OUT OF RANGE REFERENCE UNITS LAB L100.1000 4.4-11.0 K/mm3 Normal WBC 8.7 LAB L100.1200 4.2-5.4 M/mm3 Low RBC 3.79 LAB L100.1300 12.0-15.0 g/dl Low HGB 11.6 LAB L100.1400 37-47 % Low HCT 34.3 LAB L100.1500 81-99 fL Normal MCV 90.5 LAB L100.1600 27.0-32.0 pg Normal MCH 30.6 LAB L100.1700 32-36 g/gl Normal MCHC 33.8 LAB L100.1810 11.6-14.6 % Normal RDW CV 13.0 LAB L100.1820 35.1-43.9 fl Normal RDW SD 41.4 LAB L100.1900 150-450 K/mm3 Normal PLT 263 LAB L100.2000 6.2-12.0 fl Normal MPV 9.8 LAB L100.2100 47-70 % Normal NEUT% 63.5 LAB L100.2200 19-41 % Normal LY% 25.2 LAB L100.2300 0-10 % Normal MONO% 7.2 LAB L100.2400 0-5 % Normal EO% 2.2 LAB L100.2500 0-1 % Normal BASO% 0.7 LAB L100.2550 0.0-0.9 % High IM GRAN % 1.200 Result Comment: IG% - Immature Granulocytes (promyelocytes, myelocytes and metamyelocytes) > 1% indicates that a LEFT SHIFT is Present. LAB L100.2620 2.0-7.7 X10 3/uL Normal Absolute Neut 5.5 LAB L100.2720 0.83-4.51 X10 3/ul Normal Absolute Lymph 2.19 Performed By: #### L100.0100 #### [facility] [address] [place], [address] PROTHROMBIN TIME W/INR Collected: 03/31/2018 Status: F Source: [place] 5:25 AM [facility] TYPE CODE TESTS RESULT OUT OF RANGE REFERENCE UNITS LAB L300.4150 11.7-14.9 SECONDS Normal PROTIME 12.7 LAB L300.4200 Normal INR 1.0 Performed By: #### L300.3900 #### [facility] [address] [place], [address] COMPREHENSIVE METABOLIC Collected: 03/31/2018 Status: F Source: [facility] 5:25 AM [facility] TYPE CODE TESTS RESULT OUT OF RANGE REFERENCE UNITS LAB L501.0100 74-106 mg/dL High GLU 143 Result Comment: Fasting Glucose result greater than or equal to 126 mg/dL suggests DIABETES MELLITUS per A.D.A. criteria. Please note revised GLUCOSE reference range effective 2017. LAB L501.1000 7-18 mg/dL Normal BUN 14 LAB L501.1100 0.55-1.02 mg/dL Normal CREAT,SERUM 0.61 Result Comment: The validity of the calculated GFR AND GFRAA in patients over 70 years has not been determined. Clinical correlation is essential. LAB L501.1110 >60 mL/min Normal EST GFR 120 Result Comment: Non- GFR Calc LAB L501.1115 >60 mL/min Normal EST GFR - AA 145 Result Comment: GFR Calc LAB L501.1255 ml/min Normal Estimated CRCL 203.71 LAB L501.1300 10-20 RATIO High BUN/CRE 23.0 LAB L501.1500 6.4-8. g/dL 2 T PROT Normal 7.2 LAB L501.1800 3.2-5. g/dL 0 ALB Normal 3.7 LAB L501.1950 2.2-4. g/dL 2 GLOB Normal 3.5 LAB L501.2000 0.9-2. RATIO 4 A/G Normal 1.1 LAB L501.2200 8.5-10 mg/dL .1 CA Normal 9.3 LAB L501.4100 15-37 U/L High AST 38 LAB L501.4305 45-117 U/L ALK P Normal 83 LAB L501.4405 13-56 U/L High ALT 80 LAB L501.4600 0.20-1 mg/dL .00 T BILI Normal 0.40 LAB L501.5300 136-14 mmol/L 5 NA Normal 142 LAB L501.5600 3.5-5. mmol/L 1 K Normal 4.0 LAB L501.5900 98-107 mmol/L CL Normal 106 LAB L501.6100 21.0-3 mmol/L 2.0 CO2 Normal 26.0 LAB L501.6200 5-15 GAP Normal 10 Performed By: #### L500.4050, L501.2450, L501.4010 #### [facility] [address] [place], [place], [address] LIPASE Collected: 03/31/2018 Status: F Source: [place] 5:25 AM [facility] TYPE CODE TESTS RESULT OUT OF RANGE REFERENCE UNITS LAB L501.2450 73-393 U/L Normal LIPASE 115 Performed By: #### L500.4050, L501.2450, L501.4010 #### [facility] [address] [place], [address] TROPONIN-I Collected: 03/31/2018 Status: F Source: [place] 5:25 AM [facility] TYPE CODE TESTS RESULT OUT OF RANGE REFERENCE UNITS LAB L501.4010 <0.045 ng/mL Normal < 0.015 TROPONIN-I Result Comment: TROPONIN-I EXPECTED VALUES <0.045 Negative 0.045 - 0.590 Consistent with Cardiac Damage > OR = 0.600 Critical Value Not every elevated troponin is indicative of NJ. These values should be used with clinical judgement in examining the patient's clinical picture for diagnosis. To establish a diagnosis of NJ versus myocardial injury, there must be a demonstrated rise and/or fall in the troponin values, in addition to ischemic symptoms, EKG changes, new regional wall motion abnormality, and/or angiographical evidence. PLEASE NOTE: REFERENCE RANGES EDITED 17 Performed By: #### L500.4050, L501.2450, L501.4010 #### [facility] [address] [place], [address] EMERGENCY DEPARTMENT Observed: 03/28/2018 Status: F Source: [place] SUMMARY 11:31 PM [facility] Medical Records Department [address] [place] [address] Emergency Department Summary 03/28/182024 MR#: [id number] Acct: [id number] Name: JULIANNA BRIDGES Rep #: [id number] : 1985 33 From: Lisa Thayer MD PCP: Yina Brock MD Status: REG ER History of Present Illness Chief Complaint: GI Bleed Informant: Patient Onset: Days - 4-5 Context: Gradual Onset Timing: Intermittent - worse today Quality: black Location: stool Current Severity: Moderate Maximum Severity: Moderate Worsened by: nothing in particular Relieved by: nothing Associated Symptoms: today, hematemesis. 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 Does not take any other NSAIDs. Had an EGD at one point in the past but no known history of peptic ulcer disease. Some lightheadedness today but no near syncope. History of intermittent chest pain and shortness of breath, those symptoms are chronic and unchanged in the last several days. Prior similar symptoms: No Recent Illness/Hospitalization: No - Past Medical History (1) Marcus syndrome Status: Chronic (2) Congenital bicuspid aortic valve Status: Chronic (3) Pseudocoarctation of aorta, congenital Status: Chronic Past Medical History - Allergies and Home Meds Allergies/Adverse Reactions: Allergies doxycycline Adverse Reaction (Verified 03/28/18 18:06) Abd cramps/diarrhea Primary Care Physician: Yina Brock MD [Primary Care Provider] - Surgical History: appendectomy Smoking Status: Never smoker - Family History Maternal Family History: Reports: Diabetes Review of Systems General: Reports: Malaise. Denies: Chills, Fever, Sweats Eyes: Denies: Visual changes - bilaterally, Diplopia ENT: Denies: Rhinorrhea, Sore throat Cardiovascular: Reports: Chest pain. Denies: Palpitations Respiratory: Reports: Dyspnea. Denies: Cough, Sputum, Dyspnea on exertion Gastrointestinal: Reports: Abdominal pain, Nausea, Vomiting, Melena. Denies: Diarrhea, Hematochezia Genitourinary: Denies: Dysuria, Hematuria, Frequency Musculoskeletal: Denies: Back pain, Swelling, Extremity Pain Skin: Denies: Rash, Wounds Neurological: Denies: Headache, Weakness, Numbness Allergy: Denies: Swelling of the mouth, Swelling of the tongue Physical Exam Vital Signs/Narrative: Vital Signs 03/28/18 20:06 127 H 18 149/114 H 03/28/18 19:55 115 H 115 H 115 H 03/28/18 18:06 97 F L 124 H 16 136/101 H 03/28/18 20:06 100 03/28/18 19:55 153/107 H 148/118 H 149/114 H 03/28/18 18:06 99 Inital Vital Signs reviewed: Yes General: Well nourished, Well developed, Obese, - - nad Head: Normocephalic, Atraumatic Eyes: Perrl, EOMI ENT: Moist mucous membranes, No rhinorrhea Neck: Supple, Nontender Cardiovascular: Regular rate, Regular rhythm, No murmurs Respiratory: No distress, CTA bilaterally, Chest nontender Abdomen: Soft, Nontender, Nondistended, Normal bowel sounds Rectal: Guaiac positive - black stool, no gross blood, Nontender Back: Nontender, Normal Inspection Extremities: Nontender, No edema Skin: Normal color, No rash Neurological: Alert, Oriented x3, Cranial nerves II-XII grossly intact, Normal Strength, Normal Sensation Psychological: Normal affect Diagnostic/Tx/Re-eval 03/28/18 20:30 Stool Stool Occult Blood (ZACK) - Final Occult Blood Positive Laboratory Results - Medical Decision Making Hemoglobin is 12.4, her BUN is not elevated, as one would expect with an upper GI bleed. However, with hematemesis and melena, I suspect that she does indeed have an upper GI bleed. She has seen no bright red blood per rectum or dark red blood, and her hemoglobin is stable, so she probably has a stable bleed. She was tachycardic here for a while so we monitored her here for an extended period of time, but it seemed that she was having episodes of bronchospasm and every time she coughed she would send her heart rate into the 120s for period of time but it would come back down to around 100. She has a history of tachycardia as well and states that is not unusual for her. She does not feel dizzy after liter of fluid. She kept down oral liquids and ice chips after Zofran and Phenergan, and is feeling better. I offered admission but she prefers to go home if able, I think that is a reasonable thing to try at this time. She has no insurance and prefers not to be admitted if possible. She will be referred to a PCP and given a discount prescription card, she was given Protonix 80 mg IV here and will be prescribed PPI to take at home and advised to follow-up. Encouraged to return for worsening or inability to keep oral pills/liquids down. She is comfortable with this plan. Also, left a message with social work so that they may check on patient's ability to get medications as an outpatient, and to check on patient's status. ED Disposition - Plan for ED Patient: Disposition: Home or Assisted Living Chief Complaint: GI Bleed Diagnosis: Upper GI bleeding Instructions: ED Bleed UGI Stable Prescriptions: Ondansetron [Zofran Odt] 8 mg PO Q8H PRN PRN #12 tab PRN Reason: Nausea Omeprazole 40 mg PO DAILY #30 capsule. Referrals: Yina Brock MD [Primary Care Provider] - As soon as possible What to do if you have Problems For any increased pain, shortness of breath, bleeding, nausea or vomiting, chest pain, or any unexpected problems, contact your Primary Care Provider. Call [facility] ([phone]) or report to the closest Emergency Room. Call 911 if necessary. 03/28/18 1909 <Electronically signed by Lisa Thayer MD> Date Lisa Thayer MD Cosigner Signature (If Indicated): Date CC: Yina Brock MD Observed: 03/28/2018 Status: F Source: [place] STOOL OCCULT BLOOD 8:30 PM [facility] REPOS[facility] STOB iFOB Occult Blood Positive ORGANISM 1: OCCULT BLOOD POSITIVE Performed By: #### M100.7900 #### [facility] [address] [place], [place], [address] CBC W/DIFF, AUTOMATED Collected: 03/28/2018 Status: F Source: [place] 7:14 PM [facility] TYPE CODE TESTS RESULT OUT OF RANGE REFERENCE UNITS LAB L100.1000 4.4-11.0 K/mm3 Normal WBC 7.5 LAB L100.1200 4.2-5.4 M/mm3 Low RBC 4.13 LAB L100.1300 12.0-15.0 g/dl Normal HGB 12.4 LAB L100.1400 37-47 % Normal HCT 37.7 LAB L100.1500 81-99 fL Normal MCV 91.3 LAB L100.1600 27.0-32.0 pg Normal MCH 30.0 LAB L100.1700 32-36 g/gl Normal MCHC 32.9 LAB L100.1810 11.6-14.6 % Normal RDW CV 13.1 LAB L100.1820 35.1-43.9 fl Normal RDW SD 43.5 LAB L100.1900 150-450 K/mm3 Normal PLT 242 LAB L100.2000 6.2-12.0 fl Normal MPV 10.1 LAB L100.2100 47-70 % Normal NEUT% 64.8 LAB L100.2200 19-41 % Normal LY% 25.5 LAB L100.2300 0-10 % Normal MONO% 6.1 LAB L100.2400 0-5 % Normal EO% 1.5 LAB L100.2500 0-1 % Normal BASO% 0.4 LAB L100.2550 0.0-0.9 % High IM GRAN % 1.700 Result Comment: IG% - Immature Granulocytes (promyelocytes, myelocytes and metamyelocytes) > 1% indicates that a LEFT SHIFT is Present. LAB L100.2620 2.0-7.7 X10 3/uL Normal Absolute Neut 4.9 LAB L100.2720 0.83-4.51 X10 3/ul Normal Absolute Lymph 1.92 Performed By: #### L100.0100 #### [facility] [address] [place], [address] TYPE AND SCREEN Collected: 03/28/2018 Status: F Source: [place] 7:14 PM [facility] Order Comment: Has pt arrived? Y Reason for Type AND Screen/Red Cells: HEMORRHAGE, GI BLEED TYPE CODE TESTS RESULT OUT OF RANGE REFERENCE UNITS LAB B10.0800 O Normal BLOOD TYPE GEL POSITIVE LAB B100.4000 Normal Antibody NEGATIVE Screen Performed By: #### B101.7450 #### [facility] [address] [place], [address] BASIC METABOLIC Collected: 03/28/2018 Status: F Source: [place] PROFILE (BMP) 7:14 PM [facility] TYPE CODE TESTS RESULT OUT OF RANGE REFERENCE UNITS LAB L501.0100 74-106 mg/dL High GLU 127 Result Comment: Fasting Glucose result greater than or equal to 126 mg/dL suggests DIABETES MELLITUS per A.D.A. criteria. Please note revised GLUCOSE reference range effective 2017. LAB L501.1000 7-18 mg/dL Normal BUN 17 LAB L501.1100 0.55-1.02 mg/dL Normal CREAT,SERUM 0.58 Result Comment: The validity of the calculated GFR AND GFRAA in patients over 70 years has not been determined. Clinical correlation is essential. LAB L501.1110 >60 mL/min Normal EST GFR 125 Result Comment: Non- GFR Calc LAB L501.1115 >60 mL/min Normal EST GFR - AA 152 Result Comment: GFR Calc LAB L501.1255 ml/min Normal Estimated CRCL 210.41 LAB L501.1300 10-20 RATIO High BUN/CRE 29.1 LAB L501.2200 8.5-10 mg/dL .1 CA Normal 9.3 LAB L501.5300 136-14 mmol/L 5 NA Normal 139 LAB L501.5600 3.5-5. mmol/L 1 K Normal 3.8 LAB L501.5900 98-107 mmol/L CL Normal 106 LAB L501.6100 21.0-3 mmol/L 2.0 CO2 Normal 24.0 LAB L501.6200 5-15 GAP Normal 9 Performed By: #### L500.2500 #### [facility] [address] [place], [address] 12 LEAD ELECTROCARDIOGRAM Observed: 03/27/2018 Status: F Source: [place] 5:09 PM [facility] Cardiovascular Services [address] [place] [address] 12 Lead EKG 03/25/18 1623 MR#: [id number] Acct: [id number] Name: JULIANNA BRIDGES Rep #: [id number] : 1985 33 From: Mark Sheehan MD Attending Dr: Status: DEP ER Ordering Dr: Lise Chan MD Date: 03/25/18 Location: ED Sex: F C Admitted: Test Reason : CP Blood Pressure : / mmHG Vent. Rate : 118 BPM Atrial Rate : 118 BPM P-R Int : 170 ms QRS Dur : 080 ms QT Int : 330 ms P-R-T Axes : 034 017 007 degrees QTc Int : 462 ms Sinus tachycardia Septal infarct , age undetermined T wave abnormality, consider inferior ischemia Abnormal ECG Confirmed by MARK SHEEHAN MD ([id number]), editor in chief HERMINIA ALCARAZ ([id number]) on 03/27/2018 5:09:13 PM Referred By: BRADLEY Confirmed By:MARK SHEEHAN MD 03/27/18 8829 Date Mark Sheehan MD CC: Lise Chan MD; Yina Brock MD Signed DISCHARGE INSTRUCTION Observed: 03/25/2018 Status: F Source: [place] 6:37 PM [facility] Medical Records Department [address] [place] [address] Discharge Instruction 03/25/181836 MR#: [id number] Acct: [id number] Name: TONEY BRIDGESAYLEEN Burton Rep #: [id number] : 1985 33 From: Lise Chan MD PCP: Yina Brock MD Status: REG ER ED Disposition - Plan for ED Patient: Chief Complaint: Weakness Instructions: ED Chest Pain Atypical Unkn Cause Referrals: Yina Brock MD [Primary Care Provider] - What to do if you have Problems For any increased pain, shortness of breath, bleeding, nausea or vomiting, chest pain, or any unexpected problems, contact your Primary Care Provider. Call [facility] ([phone]) or report to the closest Emergency Room. Call 911 if necessary. 03/25/181836 <Electronically signed by Lise Chan MD> Date Lise Chan MD Cosigner Signature (If Indicated): Date CC: Yina Brock MD EMERGENCY DEPARTMENT Observed: 03/25/2018 Status: F Source: [place] SUMMARY 6:36 PM [facility] Medical Records Department [address] [place] [address] Emergency Department Summary 03/25/18 1722 MR#: [id number] Acct: [id number] Name: JULIANNA BRIDGES Rep #: [id number] : 1985 33 From: Lise Chan MD PCP: Yina Brock MD Status: REG ER - ER Visit Summary Date of Service: 03/25/18 Chief Complaint: Left arm pain History of Present Illness: The patient is a 33 F presenting with left arm pain. She also complains of chest pain and shortness of breath which has been intermittent for the past 2 weeks. She has a history of chronic chest pain. She does not recall any injury to her left arm. She is right-handed. She initially complained of left arm weakness but states it is more of a pain with range of motion. She has pain with range of motion of her left arm. She has a history of bicuspid aortic valve, aortic aneurysm, Marcus syndrome. Physical Examination: Vitals are stable. Patient is afebrile. Alert no acute distress. HEENT exam is unremarkable. Neck is mild tenderness with no step-off Lungs are clear and equal bilaterally. Heart is regular rate and rhythm. Abdomen is soft nontender nondistended. Extremities left shoulder tenderness with active full range of motion Skin is warm and dry. No focal neurologic deficit. Normal strength and sensation. NIH 0. Remainder of exam is unremarkable. Emergency Department Course and Treatment: Patient was given aspirin, morphine, Zofran. EKG is sinus tachycardia 118, unchanged from previous. Chest x-ray shows no acute process. CT head shows no acute process. CTA chest is normal. CBC, chemistries unremarkable other than glucose of 209. Troponin is negative. Patient has had intermittent chest pain for the past 2 weeks. She declined delta troponin. She will follow-up with her primary care physician. She is advised to return to ED for worsening complaints. Disposition: Discharge home Impression: Chest pain, left arm pain This note was generated with [employer] dictation software. It may contain incorrect words, spelling, and punctuation that were not noted in review of the chart prior to signing ED Disposition - Plan for ED Patient: Chief Complaint: Weakness Referrals: Yina Brock MD [Primary Care Provider] - What to do if you have Problems For any increased pain, shortness of breath, bleeding, nausea or vomiting, chest pain, or any unexpected problems, contact your Primary Care Provider. Call [facility] ([phone]) or report to the closest Emergency Room. Call 911 if necessary. 03/25/18 2186 <Electronically signed by Lise Chan MD> Date Lise Chan MD Cosigner Signature (If Indicated): Date CC: Yina Brock MD CBC W/DIFF, AUTOMATED Collected: 03/25/2018 Status: F Source: [place] 4:30 PM [facility] TYPE CODE TESTS RESULT OUT OF RANGE REFERENCE UNITS LAB L100.1000 4.4-11.0 K/mm3 Normal WBC 8.5 LAB L100.1200 4.2-5.4 M/mm3 Normal RBC 4.43 LAB L100.1300 12.0-15.0 g/dl Normal HGB 13.5 LAB L100.1400 37-47 % Normal HCT 40.3 LAB L100.1500 81-99 fL Normal MCV 91.0 LAB L100.1600 27.0-32.0 pg Normal MCH 30.5 LAB L100.1700 32-36 g/gl Normal MCHC 33.5 LAB L100.1810 11.6-14.6 % Normal RDW CV 13.3 LAB L100.1820 35.1-43.9 fl Normal RDW SD 43.3 LAB L100.1900 150-450 K/mm3 Normal PLT 245 LAB L100.2000 6.2-12.0 fl Normal MPV 9.8 LAB L100.2100 47-70 % High NEUT% 70.3 LAB L100.2200 19-41 % Normal LY% 21.3 LAB L100.2300 0-10 % Normal MONO% 4.4 LAB L100.2400 0-5 % Normal EO% 2.0 LAB L100.2500 0-1 % Normal BASO% 0.6 LAB L100.2550 0.0-0.9 % High IM GRAN % 1.400 Result Comment: IG% - Immature Granulocytes (promyelocytes, myelocytes and metamyelocytes) > 1% indicates that a LEFT SHIFT is Present. LAB L100.2620 2.0-7.7 X10 3/uL Normal Absolute Neut 6.0 LAB L100.2720 0.83-4.51 X10 3/ul Normal Absolute Lymph 1.80 Performed By: #### L100.0100 #### [facility] [address] [place], [address] BASIC METABOLIC Collected: 03/25/2018 Status: F Source: [place] PROFILE (BMP) 4:30 PM [facility] TYPE CODE TESTS RESULT OUT OF RANGE REFERENCE UNITS LAB L501.0100 74-106 mg/dL High GLU 209 Result Comment: Glucose result greater than or equal to 200 mg/dL suggests DIABETES MELLITUS per A.D.A. criteria. Please note revised GLUCOSE reference range effective 2017. LAB L501.1000 7-18 mg/dL Normal BUN 10 LAB L501.1100 0.55-1.02 mg/dL Normal CREAT,SERUM 0.65 Result Comment: The validity of the calculated GFR AND GFRAA in patients over 70 years has not been determined. Clinical correlation is essential. LAB L501.1110 >60 mL/min Normal EST GFR 111 Result Comment: Non- GFR Calc LAB L501.1115 >60 mL/min Normal EST GFR - AA 134 Result Comment: GFR Calc LAB L501.1255 ml/min Normal Estimated CRCL 187.75 LAB L501.1300 10-20 RATIO BUN/CRE Normal 15.3 LAB L501.2200 8.5-10 mg/dL .1 CA Normal 9.3 LAB L501.5300 136-14 mmol/L 5 NA Normal 140 LAB L501.5600 3.5-5. mmol/L 1 K Normal 3.6 LAB L501.5900 98-107 mmol/L CL Normal 104 LAB L501.6100 21.0-3 mmol/L 2.0 CO2 Normal 25.0 LAB L501.6200 5-15 GAP Normal 11 Performed By: #### L500.2500, L501.4010 #### [facility] [address] [place], [place], [address] TROPONIN-I Collected: 03/25/2018 Status: F Source: [place] 4:30 PM [facility] TYPE CODE TESTS RESULT OUT OF RANGE REFERENCE UNITS LAB L501.4010 <0.045 ng/mL Normal < 0.015 TROPONIN-I Result Comment: TROPONIN-I EXPECTED VALUES <0.045 Negative 0.045 - 0.590 Consistent with Cardiac Damage > OR = 0.600 Critical Value Not every elevated troponin is indicative of NJ. These values should be used with clinical judgement in examining the patient's clinical picture for diagnosis. To establish a diagnosis of [place] versus myocardial injury, there must be a demonstrated rise and/or fall in the troponin values, in addition to ischemic symptoms, EKG changes, new regional wall motion abnormality, and/or angiographical evidence. PLEASE NOTE: REFERENCE RANGES EDITED 17 Performed By: #### L500.2500, L501.4010 #### [facility] [address] [place], [address] CHEST 1 VIEW Observed: 03/25/2018 Status: F Source: [place] (PORTABLE) 4:18 PM [facility] REPOSITORY [facility] Imaging Services [address] [place] [address] Chest 1 View (Portable) MR#: [id number] Acct: [id number] Name: JULIANNA BRIDGES Rep #: [id number] : 1985 F 33 From: Dariel Bain MD PCP: Yina Brock MD Status: PRE ER Study: Chest 1 View (Portable) Date of Exam: 03/25/18 Exam# [id number] Ordering Dr: Lise Chan MD STUDY: X-RAY CHEST REASON FOR EXAM: Female, 33 years old. Weakness with chest pain TECHNIQUE: Single view of the chest was obtained COMPARISON: October 09, 2016 chest radiograph FINDINGS: No lung consolidation, pleural effusion or pneumothorax. Chronic size is stable. Osseous structures demonstrate no acute abnormalities. Minimal widening of the mediastinum possibly projectional. IMPRESSION: No evidence for focal airspace disease. Minimal widening of the mediastinum possibly projectional. However correlation with clinical findings and chest CT as clinically deemed essential suggested Electronically Signed: Dariel Bain, at 16:55 EST Tel , Service support , RAD/Chest 1 View (Portable) CC: Lise Chan MD; Yina Brock MD Corrections Unit Supervisor: Signed BRAIN/HEAD WITHOUT Observed: 03/25/2018 Status: F Source: [place] CONTRAST 4:18 PM [facility] REPOSITORY [facility] Imaging Services [address] [place] [address] Brain/Head without Contrast MR#: [id number] Acct: [id number] Name: JULIANNA BRIDGES Rep #: [id number] : 1985 F 33 From: Toby Sheppard MD PCP: Yina Brock MD Status: REG ER Study: Brain/Head without Contrast Date of Exam: 03/25/18 Exam# [id number] Ordering Dr: Lise Chan MD STUDY: CT BRAIN WITHOUT CONTRAST REASON FOR EXAM: Female, 33 years old. Weakness. RADIATION DOSAGE (If Supplied By Facility): CTDIvol = ( 44.99 ) mGy, DLP = ( 863.60 ) mGycm TECHNIQUE: Transaxial CT imaging of the brain was performed without administration of intravenous contrast material. Individualized dose optimization techniques were used for this CT. COMPARISON: None. FINDINGS: There is no acute bleed or infarct. There are normal white matter tracts. The ventricles are normal in configuration. There is no hydrocephalus. The visualized paranasal sinuses are clear. The mastoid air cells are well aerated. There is no skull fracture. CT/Brain/Head without Contrast IMPRESSION: No acute intracranial abnormality. Electronically Signed: Toby Sheppard, at 17:58 EST Tel , Service support , CC: Lise Chan MD; Yina Brock MD Corrections Unit Supervisor: Signed CTA CHEST W/WO Observed: 03/25/2018 Status: F Source: [place] CONTRAST 4:18 PM [facility] REPOSITORY [facility] Imaging Services [address] [place] [address] CTA Chest W/WO Contrast MR#: [id number] Acct: [id number] Name: JULIANNA BRIDGES Rep #: [id number] : 1985 F 33 From: Jose Fonseca MD PCP: Yina Brock MD Status: REG ER Study: CTA Chest W/WO Contrast Date of Exam: 03/25/18 Exam# [id number] Ordering Dr: Lise Chan MD STUDY: CTA CHEST REASON FOR EXAM: Female, 33 years old. Left arm numbness, weakness, increased SOB and chest pain x several weeks. Hx Marcus's syndrome, aortic stenosis, hypertension, asthma. RADIATION DOSAGE (If Supplied By Facility): CTDIvol = ( 13.40 ) mGy, DLP = ( 621.11 ) mGycm TECHNIQUE: The examination was performed with the intravenous administration of 100mL ml of Isovue 370 contrast material. Post-processing of the angiographic images was performed, with multiplanar reformation and 3D reconstruction. Individualized dose optimization techniques were used for this CT. COMPARISON: None. FINDINGS: Normal enhancement of the main pulmonary artery and right and left pulmonary arteries. Normal enhancement of the bilateral peripheral pulmonary arteries. There is no demonstrated pulmonary embolism. Normal thoracic aorta and visualized great vessels. There is no demonstrated aortic dissection. Normal heart and pericardium. Normal mediastinum. Normal hilar regions. Normal visualized trachea and bronchi. The lungs are well expanded. Normal pulmonary parenchyma. Normal pleura. Normal chest wall structures. There are degenerative changes of thoracic spine. Normal visualized upper abdomen. CT/CTA Chest W/WO Contrast IMPRESSION: Normal CTA chest examination, without a demonstrated pulmonary embolism or arterial dissection. 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 She has been taking her Albuterol inhaler. There is no one ill at home. There is no recent travel reported. She denies fevers. PAST MEDICAL HISTORY Diagnosis Date - (aortic stenosis) Bicuspid aortic valve (follows with Dr. Jimenes) - Asthma - Hyperlipidemia - Hypothyroidism - Morbid obesity due to excess calories (HCC) 12/18/2014 - Marcus's syndrome PAST SURGICAL HISTORY Procedure Laterality Date - APPENDECTOMY 11/2012 - COLONOSCOPY 2013 - PAST SURGICAL HISTORY OF Rt eye muscle surgery - PAST SURGICAL HISTORY OF removal wisdom teeth - REMOVE TONSILS/ADENOIDS,<12 Y/O age 4 - TYMPANOSTOMY LOCAL; UNILATERAL tubes in and out few times ALLERGIES Doxycycline MEDICATIONS albuterol (PROVENTIL) 2.5 mg /3 mL (0.083 %) nebulizer solution Use 2.5 mg via nebulizer every 4 hours as needed for Wheezing/Shortness of Breath. albuterol HFA (VENTOLIN HFA) 90 mcg/actuation inhaler Inhale 2 Puffs as instructed every 4 hours as needed. Blood Pressure Test Kit-Large (QUICK RESPONSE BP MONITOR) kit one kit, measure BP daily levothyroxine (SYNTHROID) 175 mcg tablet Take on empty stomach. For Thyroid. losartan (COZAAR) 50 mg tablet Take 1 tablet by mouth once daily. metoprolol tartrate, short acting, (LOPRESSOR) 25 mg tablet Take 1 tablet by mouth twice daily. Multivitamin capsule Take 1 capsule by mouth once daily. pantoprazole DR (PROTONIX) 20 mg tablet once daily. pantoprazole DR (PROTONIX) 40 mg tablet Take 1 tablet by mouth once daily. FAMILY HISTORY Problem Relation Age of Onset - Alcohol/Drug Father OD - Hypertension Father - Hypertension Mother - Prostate Cancer Paternal Grandfather Social History Substance Use Topics - Smoking status: Never Smoker - Smokeless tobacco: Never Used Comment: pt reports history of second-hand smoke exposure - Alcohol use No Review of Systems Constitutional: Positive for malaise/fatigue. Negative for chills and fever. HENT: Negative for congestion, ear pain, sinus pain and sore throat. Respiratory: Positive for cough. Negative for hemoptysis, sputum production, shortness of breath and wheezing. Gastrointestinal: Negative for nausea. Musculoskeletal: Negative for myalgias. All other systems reviewed and are negative. Objective Physical Exam Constitutional: She is oriented to person, place, and time and well-developed, well-nourished, and in no distress. HENT: Head: Normocephalic and atraumatic. Right Ear: External ear normal. Left Ear: External ear normal. Nose: Nose normal. Mouth/Throat: Oropharynx is clear and moist. No oropharyngeal exudate. Eyes: Conjunctivae are normal. Neck: Neck supple. Cardiovascular: Normal rate, regular rhythm, normal heart sounds and intact distal pulses. Pulmonary/Chest: Effort normal and breath sounds normal. No stridor. Abdominal: Soft. Bowel sounds are normal. Musculoskeletal: She exhibits no edema. Lymphadenopathy: She has no cervical adenopathy. Neurological: She is alert and oriented to person, place, and time. Skin: Skin is warm and dry. Psychiatric: Affect normal. Vitals reviewed. Blood pressure 122/72, pulse 110, temperature 37.4 ?C (99.4 ?F), temperature source Tympanic, resp. rate 24, weight 98 kg (216 lb), SpO2 97 %. ASSESSMENT/PLAN: 1. Dry cough - ICD9: 786.2, ICD10: R05 - BENZONATATE 200 MG CAPSULE Sadaf Gaona PA-C CNOV Observed: 03/01/2018 Status: COMPLETED Source: [place] 8:45 PM [facility] REPOSITORY Office Visit (WSTR) JULIANNA BRIDGES ([id number]) 1985 F [facility] Date Time Provider Department 03/01/18 8:45 PM SADAF GAONA) WSTR During your visit today, we recorded the following information about you: Temperature Pulse Respiration Blood pressure 99.4 degrees 110/minute 24/minute 122/72 Weight 98 kg Sadaf Gaona PA-C 03/01/2018 9:01 PM Signed Subjective HPI Julianna Bridges is a 32 year old female who presents a dry cough x 5 days. She has been taking her Albuterol inhaler. There is no one ill at home. There is no recent travel reported. She denies fevers. PAST MEDICAL HISTORY Diagnosis Date - (aortic stenosis) Bicuspid aortic valve (follows with Dr. Jimenes) - Asthma - Hyperlipidemia - Hypothyroidism - Morbid obesity due to excess calories (HCC) 12/18/2014 - Marcus's syndrome PAST SURGICAL HISTORY Procedure Laterality Date - APPENDECTOMY 11/2012 - COLONOSCOPY 2013 - PAST SURGICAL HISTORY OF Rt eye muscle surgery - PAST SURGICAL HISTORY OF removal wisdom teeth - REMOVE TONSILS/ADENOIDS,<12 Y/O age 4 - TYMPANOSTOMY LOCAL; UNILATERAL tubes in and out few times ALLERGIES Doxycycline MEDICATIONS albuterol (PROVENTIL) 2.5 mg /3 mL (0.083 %) nebulizer solution Use 2.5 mg via nebulizer every 4 hours as needed for Wheezing/Shortness of Breath. albuterol HFA (VENTOLIN HFA) 90 mcg/actuation inhaler Inhale 2 Puffs as instructed every 4 hours as needed. Blood Pressure Test Kit-Large (QUICK RESPONSE BP MONITOR) kit one kit, measure BP daily levothyroxine (SYNTHROID) 175 mcg tablet Take on empty stomach. For Thyroid. losartan (COZAAR) 50 mg tablet Take 1 tablet by mouth once daily. metoprolol tartrate, short acting, (LOPRESSOR) 25 mg tablet Take 1 tablet by mouth twice daily. Multivitamin capsule Take 1 capsule by mouth once daily. pantoprazole DR (PROTONIX) 20 mg tablet once daily. pantoprazole DR (PROTONIX) 40 mg tablet Take 1 tablet by mouth once daily. FAMILY HISTORY Problem Relation Age of Onset - Alcohol/Drug Father OD - Hypertension Father - Hypertension Mother - Prostate Cancer Paternal Grandfather Social History Substance Use Topics - Smoking status: Never Smoker - Smokeless tobacco: Never Used Comment: pt reports history of second-hand smoke exposure - Alcohol use No Review of Systems Constitutional: Positive for malaise/fatigue. Negative for chills and fever. HENT: Negative for congestion, ear pain, sinus pain and sore throat. Respiratory: Positive for cough. Negative for hemoptysis, sputum production, shortness of breath and wheezing. Gastrointestinal: Negative for nausea. Musculoskeletal: Negative for myalgias. All other systems reviewed and are negative. Objective Physical Exam Constitutional: She is oriented to person, place, and time and well-developed, well-nourished, and in no distress. HENT: Head: Normocephalic and atraumatic. Right Ear: External ear normal. Left Ear: External ear normal. Nose: Nose normal. Mouth/Throat: Oropharynx is clear and moist. No oropharyngeal exudate. Eyes: Conjunctivae are normal. Neck: Neck supple. Cardiovascular: Normal rate, regular rhythm, normal heart sounds and intact distal pulses. Pulmonary/Chest: Effort normal and breath sounds normal. No stridor. Abdominal: Soft. Bowel sounds are normal. Musculoskeletal: She exhibits no edema. Lymphadenopathy: She has no cervical adenopathy. Neurological: She is alert and oriented to person, place, and time. Skin: Skin is warm and dry. Psychiatric: Affect normal. Vitals reviewed. Blood pressure 122/72, pulse 110, temperature 37.4 ?C (99.4 ?F), temperature source Tympanic, resp. rate 24, weight 98 kg (216 lb), SpO2 97 %. ASSESSMENT/PLAN: 1. Dry cough - ICD9: 786.2, ICD10: R05 - BENZONATATE 200 MG CAPSULE DAMION Saxena PA-C 03/01/2018 8:59 PM Signed [facility] [address] [place] [address] Emergency Department Diagnosis: Assessment COUGH: Your doctor wants you to have this information about coughing. The body has a cough reflex which helps expel mucous secretions and irritants from the lung and airway passages. Cough spasms are periods of continuous coughing lasting several minutes. Most coughs is caused by virus infections which may last for up to 2-3 weeks. Coughing helps to protect the lung from pneumonia. A persistent cough lasting longer than 4-6 weeks requires medical evaluation by your primary care doctor. Treatment of cough includes measures to loosen the cough and thin the mucous. Warm liquids, cough drops, and nonprescription cough medicine may help reduce dry hacking cough. Use a humidifier if necessary as dry air can make coughs worse. Ultrasonic humidifiers are especially useful as they kill molds and many bacteria. Some cough medicines have antihistamines, decongestants, or alcohol in them; there is no proof that any of these help control cough. Prescription cough medicine or those with dextromethorphan (DM) should be reserved for dry coughs that prevent sleep or cause spasms or chest pain. Avoid any exposure to cigarette smoke as this will worsen the cough or make it last much longer. Call your doctor right away if you or your child have increased breathing difficulty, a high fever, a cough that lasts longer than 3 weeks, or other serious complaints. Referring Provider: SELF [[id number]] Allergies As of Date: 03/01/2018 Noted Allergy Reaction DOXYCYCLINE 12/22/2008 8 - GI Upset Comments: Relates to giving herself severe abd cramping, hematuria Date Reviewed: 03/01/2018 Reviewed by: Martha Hull Ma - Fully Assessed Reason for Visit: Cough [28] Cmt: nausea and fatigue x 1 week Primary Visit Diagnosis:Dry cough [R05] Order(s):Benzonatate 200 mg capsuleTake 1 capsule by mouth three times daily as needed.Disp: 30 capsuleRfl: 0 Prescriptions as of 03/01/2018 Sig: ALBUTEROL SULFATE 2.5 MG/3 ML* Use 2.5 mg via nebulizer ever* ALBUTEROL SULFATE HFA 90 MCG/* Inhale 2 Puffs as instructed * BLOOD PRESSURE TEST KIT-LARGE* one kit, measure BP daily LEVOTHYROXINE 175 MCG TABLET Take on empty stomach. For Th* Patient taking differently: once daily. Take on empty sto* LOSARTAN 50 MG TABLET Take 1 tablet by mouth once d* METOPROLOL TARTRATE 25 MG TAB* Take 1 tablet by mouth twice * MULTIVITAMIN CAPSULE Take 1 capsule by mouth once * BENZONATATE 200 MG CAPSULE Take 1 capsule by mouth three* PANTOPRAZOLE 20 MG TABLET,DEL* once daily. PANTOPRAZOLE 40 MG TABLET,DEL* Take 1 tablet by mouth once d* Patient not taking: Reported on 11/16/2017 Problem List As Of Date 03/01/2018 Noted Resolved (Aortic Stenosis) [I35.0] Marcus's Syndrome [Q96.9] Hyperlipidemia [E78.5] Asthma [J45.909] INVALID FOR* Amenorrhea [N91.2] INVALID FOR* Acid reflux [K21.9] INVALID FOR* Morbid obesity due to excess calories (HCC) [E6*INVALID FOR* Daytime somnolence [R40.0] INVALID FOR* Snoring [R06.83] INVALID FOR*11/07/2016 Apnea [R06.81] INVALID FOR*12/16/2015 More... Acquired hypothyroidism [E03.9] INVALID FOR* Congenital bicuspid aortic valve [Q23.1] INVALID FOR* Shortness of breath [R06.02] INVALID FOR* Weight gain [R63.5] INVALID FOR* [place] (obstructive sleep apnea) [G47.33] INVALID FOR* Hematochezia [K92.1] INVALID FOR* Other instructions from your clinician: [facility] [address] [place] [address] Emergency Department Diagnosis: Assessment COUGH: Your doctor wants you to have this information about coughing. The body has a cough reflex which helps expel mucous secretions and irritants from the lung and airway passages. Cough spasms are periods of continuous coughing lasting several minutes. Most coughs is caused by virus infections which may last for up to 2-3 weeks. Coughing helps to protect the lung from pneumonia. A persistent cough lasting longer than 4-6 weeks requires medical evaluation by your primary care doctor. Treatment of cough includes measures to loosen the cough and thin the mucous. Warm liquids, cough drops, and nonprescription cough medicine may help reduce dry hacking cough. Use a humidifier if necessary as dry air can make coughs worse. Ultrasonic humidifiers are especially useful as they kill molds and many bacteria. Some cough medicines have antihistamines, decongestants, or alcohol in them; there is no proof that any of these help control cough. Prescription cough medicine or those with dextromethorphan (DM) should be reserved for dry coughs that prevent sleep or cause spasms or chest pain. Avoid any exposure to cigarette smoke as this will worsen the cough or make it last much longer. Call your doctor right away if you or your child have increased breathing difficulty, a high fever, a cough that lasts longer than 3 weeks, or other serious complaints. Prescriptions ordered this encounter Disp Refills Start End BENZONATATE 200 MG CAPSULE 30 c* 0 03/01/2018 Route: ORAL Sig: Take 1 capsule by mouth three times daily as needed. Encounter Status:Closed by REJI BRUNO, SADAF on 03/01/18 XR RIB/CHST 3V AP Observed: 11/16/2017 Status: F Source: [place] RIB/OBL/CHST L 4:55 PM [facility] REPOSITORY * * *Final Report* * * DATE OF EXAM: Nov 16 2017 4:55PM WOX [id number] - XR RIB/CHST 3V AP RIB/OBL/CHST L / PROCEDURE REASON: Pleurodynia * * * * Physician Interpretation * * * * CHEST AND LEFT RIBS HISTORY: Pleurodynia TECHNIQUE: PA chest, AP and oblique ribs. COMPARISON: 10/09/2016 chest RESULT: Heart/mediastinum: Within normal limits. Lungs/pleura: Clear. Bones: Left ribs and other visible bony structures are negative. Lines/tubes/devices: None visualized. IMPRESSION: Negative chest and left rib x-rays. Corrections Unit Supervisor: PSCB Transcribe Date/Time: Nov 16 2017 5:21P Dictated by : SUZIE GAMBLE MD This examination was interpreted and the report reviewed and electronically signed by: SUZIE GAMBLE MD on Nov 16 2017 5:22PM EST [id number] PROGRESS Observed: 11/16/2017 Status: COMPLETED Source: [place] 4:39 PM [facility] REPOSITORY HNO ID: [id number] Author: Diamante Calvert Service: (none) Author Type: (none) Type: Progress Notes Filed: 11/16/2017 6:07 PM Note Text: Radiology Service Progress Note PATIENT NAME: Julianna Bridges DATE OF SERVICE: November 16, 2017 TIME: 4:39 PM PATIENT IDENTITY VERIFICATION COMPLETED USING TWO (2) METHODS: Patient confirmed name verbally and Date of . PATIENT GENDER DATA: Female. status: : No status: NO. PATIENT RELEVANT IMPLANT DATA REVIEWED: Not Applicable RADIOLOGY DEPARTMENT: General X-ray: Exam(s) Completed: Rib X-Ray: Left w/ pa chest PERIPHERAL IV DATA: Not applicable SIGNED BY: Diamante Calvert November 16, 2017 4:39 PM PROGRESS Observed: 11/16/2017 Status: COMPLETED Source: [place] 4:07 PM [facility] REPOSITORY HNO ID: [id number] Author: Raghav Qureshi Service: (none) Author Type: Nurse Practitioner Type: Progress Notes Filed: 11/16/2017 7:08 PM Note Text: Subjective HPI HPI Julianna Bridges is a 32 year old female who presents today for CC of rib pain after fall. This started 2 days ago. Has tried otc medication with mild relief. Symptoms are worsened by deep breathing. Risk factors, hx of asthma, heart disease. .Patient presents with: Rib Injury: left side rib pain into back x 2 days PAST MEDICAL HISTORY Diagnosis Date - (aortic stenosis) Bicuspid aortic valve (follows with Dr. Jimenes) - Asthma - Hyperlipidemia - Hypothyroidism - Morbid obesity due to excess calories (HCC) 12/18/2014 - Marcus's syndrome PAST SURGICAL HISTORY Procedure Laterality Date - APPENDECTOMY 11/2012 - COLONOSCOPY 2013 - PAST SURGICAL HISTORY OF Rt eye muscle surgery - PAST SURGICAL HISTORY OF removal wisdom teeth - REMOVE TONSILS/ADENOIDS,<12 Y/O age 4 - TYMPANOSTOMY LOCAL; UNILATERAL tubes in and out few times ALLERGIES Doxycycline MEDICATIONS Multivitamin capsule Take 1 capsule by mouth once daily. albuterol HFA (VENTOLIN HFA) 90 mcg/actuation inhaler Inhale 2 Puffs as instructed every 4 hours as needed. levothyroxine (SYNTHROID) 175 mcg tablet Take on empty stomach. For Thyroid. metoprolol tartrate, short acting, (LOPRESSOR) 25 mg tablet Take 1 tablet by mouth twice daily. losartan (COZAAR) 50 mg tablet Take 1 tablet by mouth once daily. Blood Pressure Test Kit-Large (QUICK RESPONSE BP MONITOR) kit one kit, measure BP daily albuterol (PROVENTIL) 2.5 mg /3 mL (0.083 %) nebulizer solution Use 2.5 mg via nebulizer every 4 hours as needed for Wheezing/Shortness of Breath. pantoprazole DR (PROTONIX) 20 mg tablet once daily. pantoprazole DR (PROTONIX) 40 mg tablet Take 1 tablet by mouth once daily. FAMILY HISTORY Problem Relation Age of Onset - Alcohol/Drug Father OD - Hypertension Father - Hypertension Mother - Prostate Cancer Paternal Grandfather Social History Substance Use Topics - Smoking status: Never Smoker - Smokeless tobacco: Never Used Comment: pt reports history of second-hand smoke exposure - Alcohol use No Review of Systems Constitutional: Negative for chills, fever and malaise/fatigue. Respiratory: Negative for cough, hemoptysis, sputum production, shortness of breath and wheezing. Cardiovascular: Negative for chest pain. Skin: Negative for itching and rash. Objective Blood pressure 120/80, pulse 112, temperature 37.2 ?C (99 ?F), temperature source Tympanic, resp. rate 16, weight 99.3 kg (219 lb). Physical Exam Constitutional: She is oriented to person, place, and time and well-developed, well-nourished, and in no distress. Non-toxic appearance. She does not have a sickly appearance. No distress. HENT: Head: Normocephalic and atraumatic. Cardiovascular: Normal rate, regular rhythm, S1 normal, S2 normal and normal heart sounds. Pulmonary/Chest: Effort normal and breath sounds normal. Musculoskeletal: Back: Neurological: She is alert and oriented to person, place, and time. Gait normal. Skin: She is not diaphoretic. ASSESSMENT/PLAN: 1. Rib pain on left side - ICD9: 786.50, ICD10: R07.81 -pain reproducible with palpation -no fracture -discussed pain care -f/u with pcp if s/s persist -go to ER if pain worsens or becomes severe - XR RIBS/CHEST 3V AP RIB/OBLS/CXR LT - Dictated by : SUZIE GAMBLE MD Impression IMPRESSION: Negative chest and left rib x-rays. Prescription instructions reviewed with patient as applicable. Patient advised if symptoms do not improve or if symptoms worsen sooner, to contact the office for further evaluation by their primary care physician. Potential red flag symptoms discussed with the patient. Reviewed appropriate action plan to take if red flag symptoms occur. Patient agreeable to treatment plan. Raghav Qureshi APRN.LUIGI CNOV Observed: 11/16/2017 Status: COMPLETED Source: [place] 4:00 PM [facility] REPOSITORY Office Visit (WSTR) JULIANNA BRIDEGS ([id number]) 1985 [facility] Date Time Provider Department 11/16/17 4:00 PM RAGHAV QURESHI (LUIGI) WSTR During your visit today, we recorded the following information about you: Temperature Pulse Respiration Blood pressure 99 degrees 112/minute 16/minute 120/80 Weight 99.3 kg Raghav Qureshi APRN.LUIGI 11/16/2017 7:08 PM Signed Subjective HPI HPI Julianna Bridges is a 32 year old female who presents today for CC of rib pain after fall. This started 2 days ago. Has tried otc medication with mild relief. Symptoms are worsened by deep breathing. Risk factors, hx of asthma, heart disease. .Patient presents with: Rib Injury: left side rib pain into back x 2 days PAST MEDICAL HISTORY Diagnosis Date - (aortic stenosis) Bicuspid aortic valve (follows with Dr. [place]) - Asthma - Hyperlipidemia - Hypothyroidism - Morbid obesity due to excess calories (HCC) 12/18/2014 - Marcus's syndrome PAST SURGICAL HISTORY Procedure Laterality Date - APPENDECTOMY 11/2012 - COLONOSCOPY 2013 - PAST SURGICAL HISTORY OF Rt eye muscle surgery - PAST SURGICAL HISTORY OF removal wisdom teeth - REMOVE TONSILS/ADENOIDS,<11 Y/O age 4 - TYMPANOSTOMY LOCAL; UNILATERAL tubes in and out few times ALLERGIES Doxycycline MEDICATIONS Multivitamin capsule Take 1 capsule by mouth once daily. albuterol HFA (VENTOLIN HFA) 90 mcg/actuation inhaler Inhale 2 Puffs as instructed every 4 hours as needed. levothyroxine (SYNTHROID) 175 mcg tablet Take on empty stomach. For Thyroid. metoprolol tartrate, short acting, (LOPRESSOR) 25 mg tablet Take 1 tablet by mouth twice daily. losartan (COZAAR) 50 mg tablet Take 1 tablet by mouth once daily. Blood Pressure Test Kit-Large (QUICK RESPONSE BP MONITOR) kit one kit, measure BP daily albuterol (PROVENTIL) 2.5 mg /3 mL (0.083 %) nebulizer solution Use 2.5 mg via nebulizer every 4 hours as needed for Wheezing/Shortness of Breath. pantoprazole DR (PROTONIX) 20 mg tablet once daily. pantoprazole DR (PROTONIX) 40 mg tablet Take 1 tablet by mouth once daily. FAMILY HISTORY Problem Relation Age of Onset - Alcohol/Drug Father OD - Hypertension Father - Hypertension Mother - Prostate Cancer Paternal Grandfather Social History Substance Use Topics - Smoking status: Never Smoker - Smokeless tobacco: Never Used Comment: pt reports history of second-hand smoke exposure - Alcohol use No Review of Systems Constitutional: Negative for chills, fever and malaise/fatigue. Respiratory: Negative for cough, hemoptysis, sputum production, shortness of breath and wheezing. Cardiovascular: Negative for chest pain. Skin: Negative for itching and rash. Objective Blood pressure 120/80, pulse 112, temperature 37.2 ?C (99 ?F), temperature source Tympanic, resp. rate 16, weight 99.3 kg (219 lb). Physical Exam Constitutional: She is oriented to person, place, and time and well-developed, well-nourished, and in no distress. Non-toxic appearance. She does not have a sickly appearance. No distress. HENT: Head: Normocephalic and atraumatic. Cardiovascular: Normal rate, regular rhythm, S1 normal, S2 normal and normal heart sounds. Pulmonary/Chest: Effort normal and breath sounds normal. Musculoskeletal: Back: Neurological: She is alert and oriented to person, place, and time. Gait normal. Skin: She is not diaphoretic. ASSESSMENT/PLAN: 1. Rib pain on left side - ICD9: 786.50, ICD10: R07.81 -pain reproducible with palpation -no fracture -discussed pain care -f/u with pcp if s/s persist -go to ER if pain worsens or becomes severe - XR RIBS/CHEST 3V AP RIB/OBLS/CXR LT - Dictated by : SUZIE GAMBLE MD Impression IMPRESSION: Negative chest and left rib x-rays. Prescription instructions reviewed with patient as applicable. Patient advised if symptoms do not improve or if symptoms worsen sooner, to contact the office for further evaluation by their primary care physician. Potential red flag symptoms discussed with the patient. Reviewed appropriate action plan to take if red flag symptoms occur. Patient agreeable to treatment plan. Raghav Qureshi APRN.LUIGI Referring Provider: SELF [[id number]] Allergies As of Date: 11/16/2017 Noted Allergy Reaction DOXYCYCLINE 12/22/2008 8 - GI Upset Comments: Relates to giving herself severe abd cramping, hematuria Date Reviewed: 11/16/2017 Reviewed by: Raghav (Luigi) - Fully Assessed Reason for Visit: Rib Injury [93515] Cmt: left side rib pain into back x 2 days Primary Visit Diagnosis:Rib pain on left side [R07.81] Order(s):XR RIBS/CHEST 3V AP RIB/OBLS/CXR LT [[id number]] Order #: [id number]. #:[id number] Prescriptions as of 11/16/2017 Sig: MULTIVITAMIN CAPSULE Take 1 capsule by mouth once * ALBUTEROL SULFATE HFA 90 MCG/* Inhale 2 Puffs as instructed * LEVOTHYROXINE 175 MCG TABLET Take on empty stomach. For Th* Patient taking differently: once daily. Take on empty sto* METOPROLOL TARTRATE 25 MG TAB* Take 1 tablet by mouth twice * LOSARTAN 50 MG TABLET Take 1 tablet by mouth once d* BLOOD PRESSURE TEST KIT-LARGE* one kit, measure BP daily ALBUTEROL SULFATE 2.5 MG/3 ML* Use 2.5 mg via nebulizer ever* PANTOPRAZOLE 20 MG TABLET,DEL* once daily. 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 Acquired hypothyroidism [E03.9] INVALID FOR* Congenital bicuspid aortic valve [Q23.1] INVALID FOR* Shortness of breath [R06.02] INVALID FOR* Weight gain [R63.5] INVALID FOR* CECILIA (obstructive sleep apnea) [G47.33] INVALID FOR* Hematochezia [K92.1] INVALID FOR* Encounter Status:Closed by RAGHAV QURESHI CNP on 11/16/17 PROGRESS Observed: 09/19/2017 Status: COMPLETED Source: [place] 10:22 AM [facility] [place] REPOSITORY HNO ID: [id number] Author: Vania Craft Cma Service: (none) Author Type: (none) Type: Progress Notes Filed: 09/19/2017 12:43 PM Note Text: Mychart message read. Please file orders PROGRESS Observed: 09/14/2017 Status: COMPLETED Source: [place] 2:04 PM [facility] REPOSITORY HNO ID: [id number] Author: Vania Craft [employer] Cloud Consulting Architect Service: (none) Author Type: (none) Type: Progress Notes Filed: 09/19/2017 12:43 PM Note Text: MyChart message sent. PROGRESS Observed: 09/14/2017 Status: COMPLETED Source: [place] 2:01 PM [facility] REPOSITORY HNO ID: [id number] Author: Vania Craft [employer] Consulting Architect Service: (none) Author Type: (none) Type: Progress Notes Filed: 09/19/2017 12:43 PM Note Text: PHMA TEAMLET DOCUMENTATION Provider Action/FYI: Please advise if wanting additional lab work. Needs follow up or yearly in October PSR Action/FYI: Teamlet has identified patient by name and date of . Team: Dr. Delmy Enamorado Myself ? Last Office Visit:04/19/2017 ? Next Office Visit: Visit date not found ? Last BP/Labs: Blood Pressure: Last 3 Encounter BP Readings: Date: BP: 05/24/2017 109/72 12/02/2016 144/77 12/01/2016 131/88 Lipids: Cholesterol, Total (mg/dL) Date Value 04/21/2014 294 12/03/2013 241 HDL Cholesterol (mg/dL) Date Value 04/21/2014 49 12/03/2013 53 LDL Cholesterol (mg/dL) Date Value 04/21/2014 206 12/03/2013 165 Triglyceride (mg/dL) Date Value 04/21/2014 194 12/03/2013 116 HGB A1C: No results found for: HBA1C TSH: TSH (uU/mL) Date Value 10/31/2016 0.644 08/29/2016 34.280 ) Care Gap: Asthma Thyroid Hyperlipidemia Plan: ? Confirm PCP / Status ? Type of appointment needed: Physical Labs, HM and Immunization: Health Maintenance Due: DTAP,TDAP,TD(1 - Tdap) due on 2003 HPV EVERY 5 YEARS due on 2014 PAP EVERY 5 YEARS due on 08/31/2017 Vania Craft [facility] CNPTOUTREACH Observed: 09/14/2017 Status: COMPLETED Source: [place] 12:00 AM [facility] REPOSITORY Patient Outreach (INTMWS) JULIANNA BRIDGES ([id number]) 1985 F [place] Date Time Provider Department 09/14/17 VANIA CRAFT ([facility]) INTMWS During your visit today, we recorded the following information about you: Vania Craft [facility] 09/19/2017 12:43 PM Signed PHMA TEAMLET DOCUMENTATION Provider Action/FYI: Please advise if wanting additional lab work. Needs follow up or yearly in October PSR Action/FYI: Teamlet has identified patient by name and date of . Team: Dr. Delmy Enamorado Myself ? Last Office Visit:04/19/2017 ? Next Office Visit: Visit date not found ? Last BP/Labs: Blood Pressure: Last 3 Encounter BP Readings: Date: BP: 05/24/2017 109/72 12/02/2016 144/77 12/01/2016 131/88 Lipids: Cholesterol, Total (mg/dL) Date Value 04/21/2014 294 12/03/2013 241 HDL Cholesterol (mg/dL) Date Value 04/21/2014 49 12/03/2013 53 LDL Cholesterol (mg/dL) Date Value 04/21/2014 206 12/03/2013 165 Triglyceride (mg/dL) Date Value 04/21/2014 194 12/03/2013 116 HGB A1C: No results found for: HBA1C TSH: TSH (uU/mL) Date Value 10/31/2016 0.644 08/29/2016 34.280 ) Care Gap: Asthma Thyroid Hyperlipidemia Plan: ? Confirm PCP / Status ? Type of appointment needed: Physical Labs, HM and Immunization: Health Maintenance Due: DTAP,TDAP,TD(1 - Tdap) due on 2003 HPV EVERY 5 YEARS due on 2014 PAP EVERY 5 YEARS due on 08/31/2017 Vania Craft [facility] Vania Craft [facility] 09/19/2017 12:43 PM Signed V[employer] message sent. Vania Craft [facility] 09/19/2017 12:43 PM Signed Taptu message read. Please file orders Allergies As of Date: 09/14/2017 Noted Allergy Reaction DOXYCYCLINE 12/22/2008 8 - GI Upset Comments: Relates to giving herself severe abd cramping, hematuria Date Reviewed: 12/02/2016 Reviewed by: Mariusz Encarnacion Ma - Fully Assessed Reason for Visit: PHMA/Care Gap Outreach [[id number]] Primary Visit Diagnosis:Hyperlipidemia, unspecified hyperlipidemia type [E78.5] Other Visit Diagnoses:Acquired hypothyroidism [E03.9] Uncomplicated asthma, unspecified asthma severity, unspecified whether persistent [J45.909] Order(s):TSH BLD [SQTSH] Order #: [id number] FUTURE LIPID PANEL BASIC [SQLIPB] Order #: [id number] FUTURE COMP METABOLIC PANEL [SQCMP] Order #: [id number] FUTURE Prescriptions as of 09/14/2017 Sig: MULTIVITAMIN CAPSULE Take 1 capsule by mouth once * PANTOPRAZOLE 20 MG TABLET,DEL* once daily. PANTOPRAZOLE 40 MG TABLET,DEL* Take 1 tablet by mouth once d* ALBUTEROL SULFATE HFA 90 MCG/* Inhale 2 Puffs as instructed * LEVOTHYROXINE 175 MCG TABLET Take on empty stomach. For Th* Patient taking differently: once daily. 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 Acquired hypothyroidism [E03.9] INVALID FOR* Congenital bicuspid aortic valve [Q23.1] INVALID FOR* Shortness of breath [R06.02] INVALID FOR* Weight gain [R63.5] INVALID FOR* CECILIA (obstructive sleep apnea) [G47.33] INVALID FOR* Hematochezia [K92.1] INVALID FOR* Encounter Status:Closed by VANIA CRAFT CMA on 09/19/17 PROGRESS Observed: 05/30/2017 Status: COMPLETED Source: [place] 7:13 AM [facility] [place] REPOSITORY HNO ID: [id number] Author: Vania Craft Cma Service: (none) Author Type: (none) Type: Progress Notes Filed: 05/30/2017 7:14 AM Note Text: External document suggests patient see Cardio at [facility]. Last visit was 04/13/2017 and he BP was 109/72. SUNGLASS CLIP ATTACHER updated in vitals. Patient did read my V[employer] message and can contact office if she's interested in making an appointment for follow up with PCP or SUNGLASS CLIP ATTACHER. PROGRESS Observed: 05/24/2017 Status: COMPLETED Source: [place] 2:12 PM [facility] [place] REPOSITORY HNO ID: [id number] Author: Vania Craft Cma Service: (none) Author Type: (none) Type: Progress Notes Filed: 05/30/2017 7:14 AM Note Text: MyChart message sent. PROGRESS Observed: 05/24/2017 Status: COMPLETED Source: [place] 2:11 PM [facility] [place] REPOSITORY HNO ID: [id number] Author: Vania Craft Cma Service: (none) Author Type: (none) Type: Progress Notes Filed: 05/30/2017 7:14 AM Note Text: Left message for patient to return call #[phone] PROGRESS Observed: 05/24/2017 Status: COMPLETED Source: [place] 2:08 PM [facility] [place] REPOSITORY HNO ID: [id number] Author: Vania Craft Cma Service: (none) Author Type: (none) Type: Progress Notes Filed: 05/30/2017 7:14 AM Note Text: PHMA TEAMLET DOCUMENTATION Provider Action/FYI: PSR Action/FYI: Teamlet has identified patient by name and date of . Team: diane and myself ? Last Office Visit:04/19/2017 ? Next Office Visit: Visit date not found ? Last BP/Labs: Blood Pressure: Last 3 Encounter BP Readings: Date: BP: 12/02/2016 144/77 12/01/2016 131/88 11/28/2016 139/95 Lipids: Cholesterol, Total (mg/dL) Date Value 04/21/2014 294 12/03/2013 241 HDL Cholesterol (mg/dL) Date Value 04/21/2014 49 12/03/2013 53 LDL Cholesterol (mg/dL) Date Value 04/21/2014 206 12/03/2013 165 Triglyceride (mg/dL) Date Value 04/21/2014 194 12/03/2013 116 HGB A1C: No results found for: HBA1C TSH: TSH (uU/mL) Date Value 10/31/2016 0.644 08/29/2016 34.280 ) Care Gap: Thyroid Plan: ? Type of appointment needed: Follow-up next available with Provider pcp or brick siding applicator (no showed last appointment on 04/19/17 and never r/s) with labs prior Labs, HM and Immunization: Health Maintenance Due: TETANUS due on 1995 HPV EVERY 5 YEARS due on 2014 INFLUENZA(1) due on 11/11/2016 PAP EVERY 5 YEARS due on 08/31/2017 Vania Craft [employer] Consulting Architect CNPTOUTREACH Observed: 05/24/2017 Status: COMPLETED Source: [place] 12:00 AM [facility] REPOSITORY Patient Outreach (INTMWS) SEBLE HUSTONJULIANNA ([id number]) 1985 F [place] Date Time Provider Department 05/[facility] During your visit today, we recorded the following information about you: Blood pressure 109/72 Vania Craft [facility] 05/30/2017 7:14 AM Signed PHMA TEAMLET DOCUMENTATION Provider Action/FYI: PSR Action/FYI: Teamlet has identified patient by name and date of . Team: diane and myself ? Last Office Visit:04/19/2017 ? Next Office Visit: Visit date not found ? Last BP/Labs: Blood Pressure: Last 3 Encounter BP Readings: Date: BP: 12/02/2016 144/77 12/01/2016 131/88 11/28/2016 139/95 Lipids: Cholesterol, Total (mg/dL) Date Value 04/21/2014 294 12/03/2013 241 HDL Cholesterol (mg/dL) Date Value 04/21/2014 49 12/03/2013 53 LDL Cholesterol (mg/dL) Date Value 04/21/2014 206 12/03/2013 165 Triglyceride (mg/dL) Date Value 04/21/2014 194 12/03/2013 116 HGB A1C: No results found for: HBA1C TSH: TSH (uU/mL) Date Value 10/31/2016 0.644 08/29/2016 34.280 ) Care Gap: Thyroid Plan: ? Type of appointment needed: Follow-up next available with Provider pcp or brick siding applicator (no showed last appointment on 04/19/17 and never r/s) with labs prior Labs, HM and Immunization: Health Maintenance Due: TETANUS due on 1995 HPV EVERY 5 YEARS due on 2014 INFLUENZA(1) due on 11/11/2016 PAP EVERY 5 YEARS due on 08/31/2017 Vania Craft [employer] Cloud Consulting Architect Vania Venancio [facility] 05/30/2017 7:14 AM Signed Left message for patient to return call #[phone] Vania Craft [facility] 05/30/2017 7:14 AM Signed Red Foundry[employer] message sent. Vania Craft [facility] 05/30/2017 7:14 AM Signed External document suggests patient see Cardio at [facility] [place]. Last visit was 04/13/2017 and he BP was 109/72. SUNGLASS CLIP ATTACHER updated in vitals. Patient did read my V[employer] message and can contact office if she's interested in making an appointment for follow up with PCP or SUNGLASS CLIP ATTACHER. Allergies As of Date: 05/24/2017 Noted Allergy Reaction DOXYCYCLINE 12/22/2008 8 - GI Upset Comments: Relates to giving herself severe abd cramping, hematuria Date Reviewed: 12/02/2016 Reviewed by: Mariusz Encarnacion Ma - Fully Assessed Reason for Visit: PHMA/Care Gap Outreach [[id number]] Prescriptions as of 05/24/2017 Sig: MULTIVITAMIN CAPSULE Take 1 capsule by mouth once * PANTOPRAZOLE 20 MG TABLET,DEL* once daily. PANTOPRAZOLE 40 MG TABLET,DEL* Take 1 tablet by mouth once d* ALBUTEROL SULFATE HFA 90 MCG/* Inhale 2 Puffs as instructed * LEVOTHYROXINE 175 MCG TABLET Take on empty stomach. For Th* Patient taking differently: once daily. 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 Acquired hypothyroidism [E03.9] INVALID FOR* Congenital bicuspid aortic valve [Q23.1] INVALID FOR* Shortness of breath [R06.02] INVALID FOR* Weight gain [R63.5] INVALID FOR* CECILIA (obstructive sleep apnea) [G47.33] INVALID FOR* Hematochezia [K92.1] INVALID FOR* Encounter Status:Closed by VANIA CRAFT CMA on 05/30/17 ALLERGIES ALLERGIES DATE TYPE / CODE NAME / CODE REACTION SEVERITY SOURCE 03/31/2018 Drug doxycycline/[id number] Abd Unknown [place] Allergy/416 2748(RXNORM) cramps/diarrhea Community [id number]([facility] ED CT) Repository 12/22/2008 DRUG DOXYCYCLINE GI UPSET [facility] INGREDI/[facility] [place] [id number]([facility] ED CT) ENCOUNTERS ENCOUNTERS ADMIT/DISCHARGE ACCOUNT ADMITTING ENCOUNTER LOCATION SOURCE NUMBER CLASS 03/31/2018/04/01/19 [id number] [facility] [address] ing:PCURoom: Repository [id number]: 1 03/31/2018 [id number] [facility] BMSBuilding:Alon Rai [facility] Repository 03/31/2018 [id number] Ambulatory BMSBuilding:[facility] Repository 03/28/2018/03/28/19 [id number] Emergency [address] ing:ED Repository 03/25/2018/03/25/19 [id number] Emergency [address] ing:ED Repository 03/01/2018/03/02/20 [id number] Ambulatory [address] Repository 11/16/2017/11/17/[id number] Repository 11/16/2017/11/18/19 [id number] Ambulatory [address] Repository PAYERS PAYERS ENCOUNTER GUARANTOR PAYER SUBSCRIBER SOURCE 03/31/2018 JULIANNA J VANDER Primary NOT GIVENUNK [place] [id number] [place] Insurance:SELF PAY [facility] 56133Zek: (330) Number: Effective Repository [phone] () Date:2018-03-31 03/31/2018 JULIANNA J VANDER Primary NOT GIVENUNK [place] [id number] [place] Insurance:SELF PAY [facility] [id number]: (330) Number: Effective Repository [phone] () Date:2018-03-31 03/31/2018 JULIANNA J VANDER Primary NOT GIVENUNK [place] [id number] [place] Insurance:SELF PAY [place] [id number]: (330) Number: Effective Repository [phone] () Date:2018-03-31 03/28/2018 JULIANNA J VANDER Primary NOT GIVENUNK [place] [id number] [place] Insurance:SELF PAY [place] [address]Tel: (330) Number: Effective Repository [phone] () Date:2018-03-28 03/25/2018 JULIANNA J VANDER Primary NOT GIVENUNK [place] [id number] [place] Insurance:SELF PAY [facility] [address]86[address]Lfe: (330) Number: Effective Repository [phone] () Date:2018-03-25
== END 2018-03-28 23:44 | disposition home or self-care (01) ==
PROVIDERS: Emergency Provider Emergency Medicine; Family Provider Internal Medicine; PCP Internal Medicine
DX: K92.2 Gastrointestinal hemorrhage, unspecified (principal); E66.9 Obesity, unspecified; Q96.9 Turner's syndrome, unspecified; Q23.1 Congenital insufficiency of aortic valve; Q25.49 Other congenital malformations of aorta; Z79.82 Long term (current) use of aspirin; Z79.899 Other long term (current) drug therapy
CPT/HCPCS: 80048; 82274; 85025; 86850; 86900; 96365; 96374; 96375; 99284; J7030; A4216; J2405; J3490

== ENCOUNTER 2018-03-31 05:23 | Observation (INO) | payer MEDICAID, SELFPAY ==
[2018-03-31] VITALS (14 sets, daily range): BP systolic 110–147; BP diastolic 77–105; PULSE 72–104; RESP 16–24; TEMP 36.6–36.8; O2SAT 97–98; BMI 45.7; BMI 46.2; BMI 46.3
--- NOTE | 2018-03-31 05:36 | EKG12_ITS ---
Test Reason : GI BLEED Blood Pressure : / mmHG Vent. Rate : 095 BPM Atrial Rate : 095 BPM P-R Int : 158 ms QRS Dur : 072 ms QT Int : 380 ms P-R-T Axes : -05 -02 -03 degrees QTc Int : 477 ms Normal sinus rhythm Normal ECG Confirmed by DAYANARA HESS, ZHEN ([id number]), desk editor NOE MONTES DE OCA ([id number]) on 04/02/2018 9:01:06 AM Referred By: GUILLERMO Confirmed By:ZHEN NICHOLE MD
[2018-03-31] MEDS: 0.9% Normal Saline 1,000 ML 1000 ML IV (05:43)
[2018-03-31] MEDS: Ondansetron 4 MG/2 ML Vial IV ×3 (05:43→18:05)
[2018-03-31 05:49] LABS: Absolute Lymphocyte Count 2.19 X10^3/ul (0.83-4.51); Absolute Neutrophil Count 5.5 X10^3/uL (2.0-7.7); Basophil# 0.06 X10^3/uL; Basophil% 0.7 % (0-1); Eosinophil# 0.19 X10^3/uL; Eosinophils% 2.2 % (0-5); Hematocrit 34.3 % (37-47); Hemoglobin 11.6 g/dl (12.0-15.0); Lymphocyte # 2.19 X10^3/ul (4.0); Lymphocyte % 25.2 % (19-41); Mean Corp Hgb Conc 33.8 g/gl (32-36); Mean Corpuscular Hgb 30.6 pg (27.0-32.0); Mean Corpuscular Volume 90.5 fL (81-99); Mean Platelet Vol. 9.8 fl (6.2-12.0); Monocyte# 0.63 X10^3/uL; Monocyte% 7.2 % (0-10); Neutrophil # 5.52 X10^3/uL (2.7-7.7); Neutrophil % 63.5 % (47-70); Platelet Count 263 K/mm3 (150-450); RBC Distribution Width SD 41.4 fl (35.1-43.9); Red Blood Count 3.79 M/mm3 (4.2-5.4); White Blood Count 8.7 K/mm3 (4.4-11.0)
[2018-03-31 05:50] LABS: Prothrombin Time (Protime)PT. 12.7 SECONDS (11.7-14.9)
[2018-03-31 05:52] LABS: POSITIVE COUNT NO; POSITIVE DIFFERENTIAL NO; POSITIVE MORPHOLOGY NO
[2018-03-31 06:02] LABS: ALB/GLOB Ratio 1.1 RATIO (0.9-2.4); AST(SGOT) 38 U/L (15-37); Alanine Aminotransfer ALT/SGPT 80 U/L (13-56); Albumin, Serum 3.7 g/dL (3.2-5.0); Alkaline Phosphatase 83 U/L (45-117); Anion Gap 10 (5-15); BUN 14 mg/dL (7-18); Calcium,Total 9.3 mg/dL (8.5-10.1); Chloride 106 mmol/L (98-107); Creatinine, Serum 0.61 mg/dL (0.55-1.02); EST Glomerular Filtration Rate 120 mL/min (>60); Est Glom Filt Rate - Afr Amer 145 mL/min (>60); Estimated Creatinine Clearance 203.71 ml/min; Globulin 3.5 g/dL (2.2-4.2); Glucose 143 mg/dL (74-106); Lipase 115 U/L (73-393); Protein, Total 7.2 g/dL (6.4-8.2); Sodium Level 142 mmol/L (136-145)
--- NOTE | 2018-03-31 06:15 | RAD_ITS ---
STUDY: X-RAY - ABDOMEN/PELVIS REASON FOR EXAM: Female, 33 years old. Nasogastric tube placement. TECHNIQUE: Single AP view of the abdomen / pelvis. COMPARISON: CT of the abdomen and pelvis dated October 09, 2016. FINDINGS: Normal visualized lung bases. There is an unremarkable bowel gas pattern. Enteric tube is visible with the distal in the left upper quadrant, probably in the stomach. There is no obvious organomegaly, mass or dilated bowel. Normal soft tissue structures. There are diffuse degenerative changes of the visualized lumbar spine. RAD/Abdomen Single View (Portable) IMPRESSION: Appropriate positioning of enteric tube. Electronically Signed: Savi Wright MD at 7:06 EST , Service support ,
--- NOTE | 2018-03-31 06:15 | RAD_ITS ---
STUDY: X-RAY CHEST REASON FOR EXAM: Female, 33 years old. Bloody emesis starting this morning. TECHNIQUE: Single AP portable view of the chest. COMPARISON: March 25, 2018. FINDINGS: Enteric tube is present with the distal end below the inferior edge of the image and below the hemidiaphragms. Cardiac monitoring leads are present. The lungs are clear and expanded. There is no demonstrated pleural abnormality. There is borderline cardiomegaly. Normal mediastinum and tracy. Normal visualized pulmonary arteries. There is atherosclerotic calcification of the aortic arch with tortuosity. There is demineralization of the osseous structures. There are degenerative changes of both shoulders. There is no demonstrated abnormality of the visualized soft tissue structures of the upper abdomen. RAD/Chest 1 View (Portable) IMPRESSION: 1. Borderline cardiomegaly with without evidence of acute cardiopulmonary disease. 2. Appropriate positioning of enteric tube. Electronically Signed: Savi Wright MD at 7:01 EST , Service support ,
--- NOTE | 2018-03-31 06:50 | ED.DCSUM_ITS ---
- ER Visit Summary Date of Service: 03/31/18 Chief Complaint: Hematemesis History of Present Illness: The patient is a 33 F who presents with hematemesis. Over the last 3 hours she has had 6-8 episodes of bright red hematemesis. She did have blood streaks with the first episode. She was recently seen for similar symptoms. However her laboratory studies were unremarkable. She was given IV Protonix and discharged with a prescription for PPI therapy. She is on a baby aspirin but no other anticoagulation. She also complains of epigastric cramping and burning abdominal pain. She is also been having some intermittent loose stools for about 1 week. No fevers. She does complain of chest pain shortness of breath and pain into her back and neck. She denies near syncope. Physical Examination: Heart rate 100 vitals otherwise unremarkable Moist mucous membranes Heart regular rhythm tachycardia Lungs are clear Abdomen soft nondistended she has some mild nonfocal diffuse tenderness Alert Test Results: EKG shows normal sinus rhythm at a rate of 95. Labs are notable for hemoglobin 11.6 is down from previous of 12.4 but she did receive IV fluids on last visit. INR normal. Hepatic function lipase notable for ALT 80, AST 38, lipase is normal. Troponin is negative. Chest x-ray on my review is unremarkable. Abdominal x-ray shows NG tube to be in good position. Emergency Department Course and Treatment: Patient was treated with IV fluids and Zofran for nausea. She was given IV Protonix. Given her report of 6-8 episodes of bright red hematemesis I did place an NG to evaluate current bleeding. She did have 100 cc of bright red tinged liquid. Given second visit and multiple reported episodes of hematemesis I did feel she would require hospitalization for further evaluation and management. Treatment Plan: [] Disposition: Admit Impression: Upper GI bleed This note was generated with [employer] dictation software. It may contain incorrect words, spelling, and punctuation that were not noted in review of the chart prior to signing ED Disposition - Plan for ED Patient: Chief Complaint: GI Bleed Referrals: Yina Brock MD [Primary Care Provider] -
--- NOTE | 2018-03-31 07:18 | HP.PCM_ITS ---
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 Patient symptoms started about 2 AM on the morning of her presentation. Prior to that patient had experienced persistent nausea for about 3 days duration. On further questioning patient denied any frequent use of nonsteroidal anti-inflammatory drugs. She did notice murphy blood in her vomitus on the morning of her presentation subsequently presented to the emergency department. In the ED an NG tube was inserted with bloody return. Started on Protonix drip and admitted for subsequent management. 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 Losartan Potassium 50 mg PO DAILY 10/09/16 Atorvastatin Calcium [Lipitor] 20 mg PO QHS 03/25/18 Levothyroxine [Synthroid] 150 mcg PO DAILY 03/25/18 Aspirin [Aspirin, Baby] 81 mg PO DAILY@0800 03/28/18 Metoprolol Tartrate 150 mg PO QHS 03/31/18 Surgical History: appendectomy Smoking Status: Never smoker - *Family History Maternal History Items: Diabetes Review of Systems Constitutional: Denies: Anorexia, Chills, Fever, Night Sweats, Weight Change HEENT: Denies: Head Aches, Sinus Congestion, Sinus Drainage Cardiovascular: Denies: Chest Pain, Orthopnea, Palpitations, Paroxysmal Noc. Dyspnea Respiratory: Denies: Cough, Shortness of breath at rest, Shortness of breath upon exertion, Sputum production Gastrointestinal: Reports: Hematemesis, Nausea, Vomiting. Denies: Abdominal Pain, Hematochezia, Melena Genitourinary: Denies: Dysuria, Frequency, Hematuria, Urgency Musculoskeletal: Denies: Joint Pain, Joint Tenderness Skin: Denies: Rash Neurological: Denies: Focal weakness, Numbness, Tingling Psychiatric: Denies: Homicidal Ideations, Suicidal Ideations Hematologic/ Lymphatic: Denies: Easy Bruising, Easy Bleeding VTE Information - Inpt Only VTE Present on Admission: No VTE Mechan Device Prophylaxis: Knee High DONITA Hose VTE Pharm Prophylaxis ordered?: No Reason prophylaxis not ordered:: Medical Contraindication Patient Problems: Active and Suspected Problems Upper GI bleed (Acute) Objective: GENERAL: cooperative HEENT: Atraumatic; EYES; Anicteric, NECK; webbed neck RESPIRATORY: Diminished to auscultation bilaterally, CARDIOVASCULAR: Regular S1 S2, GI: soft, non-tender, normoactive bowel sounds, : No Renal angle tenderness; EXTREMITIES: No edema, no clubbing, MUSCULOSKELETAL: No Joint Tenderness; NEURO: Awake; no lateralizing signs. SKIN: No Rash PSYCH; Normal affect - Physical Exam Vital Signs Temp Pulse Resp BP Pulse Ox 98.3 F 100 16 147/105 H 98 03/31/18 05:23 03/31/18 05:23 03/31/18 05:23 03/31/18 05:23 03/31/18 05:23 Oxygen Delivery Method Room Air Weight: 99.3 kg Body Mass Index (BMI) 45.7 Laboratory Tests Past 24 Hrs 03/31/18 03/31/18 03/31/18 05:25 05:25 05:25 WBC 8.7 RBC 3.79 L Hgb 11.6 L Hct 34.3 L MCV 90.5 MCH 30.6 MCHC 33.8 RDW 13.0 RDW Differential 41.4 Plt Count 263 MPV 9.8 Immature Gran % (Auto) 1.200 H Neut % (Auto) 63.5 Lymph % (Auto) 25.2 [place]inson % (Auto) 7.2 Eos % (Auto) 2.2 Baso % (Auto) 0.7 Absolute Neuts (auto) 5.5 Absolute Lymphs (auto) 2.19 Total Counted Not Reportable PT 12.7 INR 1.0 Sodium 142 Potassium 4.0 Chloride 106 Carbon Dioxide 26.0 Anion Gap 10 BUN 14 Creatinine 0.61 Estim Creat Clear Calc 203.71 Est GFR (MDRD) Af Amer 145 Est GFR (MDRD) Non-Af 120 BUN/Creatinine Ratio 23.0 H Glucose 143 H Calcium 9.3 Total Bilirubin 0.40 AST 38 H ALT 80 H Alkaline Phosphatase 83 Troponin I < 0.015 Total Protein 7.2 Albumin 3.7 Globulin 3.5 Albumin/Globulin Ratio 1.1 Lipase 115 Assessment/Plan All Active Problems Upper GI bleed (Acute) Chest pain at rest (Resolved) Shortness of breath at rest (Resolved) Patient is a 33-year-old lady presented with hematemesis after a 3-day history of persistent nausea vomiting 1. Upper GI bleed do suspect possible Ave-Clay tear versus gastritis: An NG tube was placed in the ED. Patient has been admitted to the stepdown unit started on Protonix drip, ordered H&H every 6 typed and screened and consultation was placed to general surgery did speak to Dr. Olivarez 2. 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 Hypertension-blood pressure controlled, home medications continued with dose adjustment as needed 4. Hypothyroidism-patient is on levothyroxine home dose continued 5. Dyslipidemia-patient is on statin therapy, continued at home dose 6. DVT prophylaxis bilateral SCDs Code Visit OBSV E&M: 18600 Initial observation care L3
[2018-03-31 09:00] LABS: Hematocrit 34.4 % (37-47); Hemoglobin 11.5 g/dl (12.0-15.0)
[2018-03-31] MEDS: Dext 5%-0.45% NS 1,000 ML 100 ML IV ×2 (09:02→18:23)
[2018-03-31] MEDS: Losartan Potassium 50 MG Tablet PO (10:32)
[2018-03-31] MEDS: Levothyroxine 150 MCG Tablet PO (10:33)
[2018-03-31] MEDS: Metoprolol Tartrate 50 MG Tablet PO ×2 (10:36→21:43)
--- NOTE | 2018-03-31 10:36 | PCM.CONS.GEN ---
Problem List (1) Upper GI bleed Status: Acute Reason for Consult Date of Consultation: 03/31/18 History of Present Illness: The patient is a 33 year old F with past medical history significant for Macrus syndrome, hypothyroidism, history of bicuspid aortic valve with aortic stenosis who presented with vomiting blood. Patient symptoms started about 2 AM on the morning of her presentation. Prior to that patient had experienced persistent nausea for about 3 days duration. On further questioning patient denied any frequent use of nonsteroidal anti-inflammatory drugs. She did notice murphy blood in her vomitus on the morning of her presentation subsequently presented to the emergency department. In the ED an NG tube was inserted with bloody return. Started on Protonix drip and admitted for subsequent management. Since being on the floor she has not experienced any further hematemesis and NG tube that originally was placed is now out. 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 Losartan Potassium 50 mg PO DAILY 10/09/16 Atorvastatin Calcium [Lipitor] 20 mg PO QHS 03/25/18 Levothyroxine [Synthroid] 150 mcg PO DAILY 03/25/18 Aspirin [Aspirin, Baby] 81 mg PO QHS 03/28/18 Surgical History: appendectomy Smoking Status: Never smoker - *Family History Maternal History Items: Diabetes Patient Problems: Active and Suspected Problems Upper GI bleed (Acute) - Physical Exam General: Alert, Oriented x3 Lungs: Clear to auscultation Cardiovascular: Regular rate, Regular Rhythm, No murmurs Abdomen: Bowel Sounds Present, Soft, Non Tender, Non-Distended Vital Signs Temp Pulse Resp BP Pulse Ox 98.2 F 104 H 19 H 146/87 H 98 03/31/18 08:22 03/31/18 08:26 03/31/18 08:22 03/31/18 08:22 03/31/18 08:22 Oxygen Delivery Method Room Air Weight: 221 lb 5.506 oz Body Mass Index (BMI) 46.2 Laboratory Tests Past 24 Hrs 03/31/18 03/31/18 03/31/18 05:25 05:25 05:25 WBC 8.7 RBC 3.79 L Hgb 11.6 L Hct 34.3 L MCV 90.5 MCH 30.6 MCHC 33.8 RDW 13.0 RDW Differential 41.4 Plt Count 263 MPV 9.8 Immature Gran % (Auto) 1.200 H Neut % (Auto) 63.5 Lymph % (Auto) 25.2 Warren % (Auto) 7.2 Eos % (Auto) 2.2 Baso % (Auto) 0.7 Absolute Neuts (auto) 5.5 Absolute Lymphs (auto) 2.19 Total Counted Not Reportable PT 12.7 INR 1.0 Sodium 142 Potassium 4.0 Chloride 106 Carbon Dioxide 26.0 Anion Gap 10 BUN 14 Creatinine 0.61 Estim Creat Clear Calc 203.71 Est GFR (MDRD) Af Amer 145 Est GFR (MDRD) Non-Af 120 BUN/Creatinine Ratio 23.0 H Glucose 143 H Calcium 9.3 Total Bilirubin 0.40 AST 38 H ALT 80 H Alkaline Phosphatase 83 Troponin I < 0.015 Total Protein 7.2 Albumin 3.7 Globulin 3.5 Albumin/Globulin Ratio 1.1 Lipase 115 03/31/18 08:50 WBC RBC Hgb 11.5 L Hct 34.4 L MCV MCH MCHC RDW RDW Differential Plt Count MPV Immature Gran % (Auto) Neut % (Auto) Lymph % (Auto) Warren % (Auto) Eos % (Auto) Baso % (Auto) Absolute Neuts (auto) Absolute Lymphs (auto) Total Counted PT INR Sodium Potassium Chloride Carbon Dioxide Anion Gap BUN Creatinine Estim Creat Clear Calc Est GFR (MDRD) Af Amer Est GFR (MDRD) Non-Af BUN/Creatinine Ratio Glucose Calcium Total Bilirubin AST ALT Alkaline Phosphatase Troponin I Total Protein Albumin Globulin Albumin/Globulin Ratio Lipase Assessment/Plan All Active Problems Upper GI bleed (Acute) Chest pain at rest (Resolved) Shortness of breath at rest (Resolved) At this point I am not going to perform an upper endoscopy on her today. We will check serial H&H's will make another assessment on Monday to see if a EGD should be performed. She is on an IV Protonix drip. Hopefully this will be enough I do not think I will add Carafate until I do her upper scope.
[2018-03-31 13:59] LABS: Hematocrit 33.2 % (37-47); Hemoglobin 10.9 g/dl (12.0-15.0)
[2018-03-31 14:32] LABS: Internal QC Validated? YES +Cl - CLEAR BKGD; Pregnancy, Urine Negative Negative
[2018-03-31] MEDS: 0.9% NaCl Peripheral Flush Adult/Peds IV ×2 (18:07→20:24)
[2018-03-31] MEDS: proMETHazine 25 MG/ML Syringe 6.25 MG IV (20:23)
[2018-03-31 20:41] LABS: Hematocrit 32.6 % (37-47); Hemoglobin 10.7 g/dl (12.0-15.0)
[2018-03-31] MEDS: Atorvastatin Calcium 20 MG Tablet PO (21:43)
[2018-04-01] VITALS (10 sets, daily range): BP systolic 87–113; BP diastolic 59–75; PULSE 68–86; RESP 16–18; TEMP 36.5–36.9; O2SAT 96–100
[2018-04-01 02:49] LABS: Hematocrit 33.7 % (37-47); Mean Corp Hgb Conc 32.6 g/gl (32-36); Mean Corpuscular Hgb 30.1 pg (27.0-32.0); Mean Corpuscular Volume 92.3 fL (81-99); Mean Platelet Vol. 9.6 fl (6.2-12.0); Platelet Count 248 K/mm3 (150-450); RBC Distribution Width CV 13.4 % (11.6-14.6); RBC Distribution Width SD 44.7 fl (35.1-43.9); Red Blood Count 3.65 M/mm3 (4.2-5.4); Scan Indicated on CBC? Y/N NO; White Blood Count 8.4 K/mm3 (4.4-11.0)
[2018-04-01 02:53] LABS: International Normalized Ratio 1.1; Partial Thromboplast Time 26.9 Seconds (24.1-36.2); Prothrombin Time (Protime)PT. 13.8 SECONDS (11.7-14.9)
[2018-04-01 02:54] LABS: Anion Gap 7 (5-15); BUN 8 mg/dL (7-18); BUN/Creat Ratio 12.5 RATIO (10-20); Calcium,Total 8.5 mg/dL (8.5-10.1); Chloride 107 mmol/L (98-107); Creatinine, Serum 0.64 mg/dL (0.55-1.02); EST Glomerular Filtration Rate 113 mL/min (>60); Est Glom Filt Rate - Afr Amer 136 mL/min (>60); Estimated Creatinine Clearance 196.31 ml/min; Glucose 135 mg/dL (74-106); Potassium 3.9 mmol/L (3.5-5.1); Sodium Level 139 mmol/L (136-145)
[2018-04-01] MEDS: Dext 5%-0.45% NS 1,000 ML 100 ML IV (03:38)
--- NOTE | 2018-04-01 08:05 | IMM_PTH ---
PATIENT: JULIANNA AVITIA LOC: PCU U#:[id number] AGE/SX: 33/F ROOM: [facility] RE03/31/[address]: Dr. David Wellington MD : 1985 BED: 1 DIS: 04/01/2018 SPEC #: [id number] RECD: 04/02/18 11:56 STATUS: SOUChuyita REQ #: [id number] EDUARDA: 04/01/18 08:[address]: Mac Olivarez DEPT: IMMUNOHISTOCHEMISTRY RECD BY: Dee Brush ENTERED: 04/02/18 11:57 SP TYPE: IMMUNO OTHR DR: MD Dr. Mac Coyle MD Dr. Liza D Talampas, MD Tissues: Gastric mucous membrane Procedures: H Pylori (initial) Comments: @ Ordering doctor for H.PYLORI edited from to @ sophy MARTINEZ at 04/02/18 1237 @ Submitting doctor edited from to @ sophy MARTINEZ at 04/02/18 1237 PHYSICIAN & [place] [id number] SPECIMEN INFORMATION: Tissue Source: Antral biopsy Clinical Info: YENNIFER Specimen Number: [id number] CPT code: 63342 METHODOLOGY: Deparaffinized sections of prefer/formalin-fixed tissue or PAP/DQ stained slides are incubated with monoclonal/polyclonal antibodies/oligonucleotide probes. Localization is made via biotin free immunoperoxidase method. Appropriate controls are performed and reacted as expected. Results on target cell population are indicated in the following table: RESULTS: ANTIBODY / CLONE RESULT H Pylori (polyclonal) negative These tests were developed and their performance characteristics determined by [facility]. They may not have been cleared or approved by the U.S. Food and Drug Administration. The FDA has determined that such clearance or approval is not necessary. INTERPRETATION: Antral biopsy: Negative for Helicobacter pylori organisms. AM:trice 04/03/18
--- NOTE | 2018-04-01 08:05 | GASB_PTH ---
PATIENT: JULIANNA AVITIA LOC: PCU U#:[id number] AGE/SX: 33/F ROOM: [facility] RE03/31/[address]: Dr. David Wellington MD : 1985 BED: 1 DIS: 04/01/2018 SPEC #: [id number] RECD: 04/02/18 10:16 STATUS: ESTELA REQ #: [id number] EDUARDA: 04/01/18 08:[address]: Mac Olivarez DEPT: SURGICAL PATHOLOGY RECD BY: Jim Messina ENTERED: 04/02/18 10:16 SP TYPE: Gastric Bx OTHR DR: MD Dr. Mac Coyle MD Dr. Liza D Talampas, MD Tissues: Gastric mucous membrane Procedures: Surgery Specimen Level IV Comments: @ Ordering doctor for SUIV edited from to DR.DPEABO Angelito MARTINEZ at 04/02/18 1237 @ Submitting doctor edited from to DR.DPEABO Angelito MARTINEZ at 04/02/18 1237 HEADER OPERATION: [place] [place] PRE-OP DIAGNOSIS: GIB TISSUE SUBMITTED: Antral biopsy for H. pylori and pathology MICROSCOPIC DIAGNOSIS Gastric antrum, biopsy: Mild chronic gastritis. AM:trice 04/03/18 COMMENT The results of immunohistochemistry for Helicobacter pylori will be reported separately ([id number]). MICROSCOPIC DESCRIPTION Slides are reviewed. GROSS DESCRIPTION Received in fixative is one container labeled with the patient's name and designated antral biopsy. The specimen consists of one irregular fragment of light driscoll soft tissue that measures 0.6 x 0.2 x 0.1 cm. The specimen is totally submitted in one cassette. / AM:trice 04/02/18 TC:3 CPT: 45950
--- NOTE | 2018-04-01 09:26 | PCM.PN.HOSP ---
Patient Problems: Active and Suspected Problems Upper GI bleed (Acute) Subjective: Her hemoglobin level has remained fairly stable. Scheduled to undergo EGD by Dr. Olivarez this a.m. Objective: GENERAL: cooperative HEENT: Atraumatic; EYES; Anicteric, NECK; webbed neck RESPIRATORY: Diminished to auscultation bilaterally, CARDIOVASCULAR: Regular S1 S2, GI: soft, non-tender, normoactive bowel sounds, : No Renal angle tenderness; EXTREMITIES: No edema, no clubbing, MUSCULOSKELETAL: No Joint Tenderness; NEURO: Awake; no lateralizing signs. SKIN: No Rash PSYCH; Normal affect Vitals/I&O's: Vital Signs Temp Pulse Resp BP Pulse Ox 98.4 F 76 16 96/71 100 04/01/18 08:26 04/01/18 08:26 04/01/18 08:26 04/01/18 08:26 04/01/18 08:26 Oxygen Delivery Method Room Air Weight: 100.4 kg Body Mass Index (BMI) 46.2 Intake and Output for Last 24 Hours 03/30/18 03/31/18 04/01/18 23:59 23:59 23:59 Intake Total 2635 / 2635 1070 / 1070 Output Total 800 / 800 Balance 1835 / 1835 1070 / 1070 Laboratory Results 03/31/18 13:53: Hgb 10.9 L, Hct 33.2 L 03/31/18 14:05: Urine Test Negative 03/31/18 20:32: Hgb 10.7 L, Hct 32.6 L 04/01/18 02:34: WBC 8.4, RBC 3.65 L, Hgb 11.0 L, Hct 33.7 L, MCV 92.3, MCH 30.1, MCHC 32.6, RDW 13.4, RDW Differential 44.7 H, Plt Count 248, MPV 9.6 04/01/18 02:34: Sodium 139, Potassium 3.9, Chloride 107, Carbon Dioxide 25.0, Anion Gap 7, BUN 8, Creatinine 0.64, Estim Creat Clear Calc 196.31, Est GFR (MDRD) Af Amer 136, Est GFR (MDRD) Non-Af 113, BUN/Creatinine Ratio 12.5, Glucose 135 H, Calcium 8.5 04/01/18 02:34: Hgb Cancelled, Hct Cancelled 04/01/18 02:34: PT 13.8, INR 1.1, APTT 26.9 04/01/18 08:50: Hgb Pending, Hct Pending Current Medications Albuterol Sulfate (Ventolin Aerosols) 2.5 mg INHALATION Q4HWA.RT PRN PRN Reason: WHEEZING Atorvastatin Calcium (Lipitor) 20 mg PO QHS [facility] [place] Last Admin: 03/31/18 21:43 Dose: 20 mg Dextrose/Sodium Chloride () 1,000 mls @ 100 mls/hr IV .Q10H [facility] [place] Last Admin: 04/01/18 03:38 Dose: 100 mls/hr Pantoprazole Sodium 80 mg/ (Sodium Chloride) 100 mls @ 10 mls/hr CONT INF Q10H [facility] [place] Last Admin: 04/01/18 06:25 Dose: 10 mls/hr Levothyroxine Sodium (Synthroid) 150 mcg PO DAILY@0600 [facility] [place] Last Admin: 03/31/18 10:33 Dose: 150 mcg Losartan Potassium (Cozaar) 50 mg PO DAILY [facility] [place] Last Admin: 03/31/18 10:32 Dose: 50 mg Magnesium Hydroxide (Milk Of Magnesia) 30 ml PO DAILY PRN PRN PRN Reason: Constipation Metoprolol Tartrate (Lopressor (Beta Jeffrey)) 50 mg PO BID [facility] [place] Last Admin: 03/31/18 21:43 Dose: 50 mg Morphine Sulfate () 2 - 4 mg IV Q3H PRN PRN PRN Reason: Severe Pain (pain scale 6-10) Ondansetron HCl (Zofran) 4 mg IV Q6H PRN PRN PRN Reason: NAUSEA Last Admin: 03/31/18 18:05 Dose: 4 mg Promethazine HCl (Phenergan) 6.25 mg IV Q4H PRN PRN PRN Reason: NAUSEA/VOMITING Last Admin: 03/31/18 20:23 Dose: 6.25 mg Sodium Chloride () 5 - 15 ml IV UD PRN PRN Reason: SALINE FLUSH Last Admin: 03/31/18 20:24 Dose: 10 ml Medical Necessity - Tobacco Use Smoking Status: Never smoker Assessment/Plan All Active Problems Upper GI bleed (Acute) Chest pain at rest (Resolved) Shortness of breath at rest (Resolved) Patient is a 33-year-old lady presented with hematemesis after a 3-day history of persistent nausea vomiting 1. Upper GI bleed do suspect possible Ave-Clay tear versus gastritis: An NG tube was placed in the ED. Patient has been admitted to the stepdown unit started on Protonix drip, ordered H&H every 6 typed and screened and consultation was placed to general surgery did speak to Dr. Olivarez 2. 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 Hypertension-blood pressure controlled, home medications continued with dose adjustment as needed 4. Hypothyroidism-patient is on levothyroxine home dose continued 5. Dyslipidemia-patient is on statin therapy, continued at home dose 6. DVT prophylaxis bilateral SCDs
[2018-04-01 09:27] LABS: Hemoglobin 10.4 g/dl (12.0-15.0)
[2018-04-01] MEDS: Losartan Potassium 50 MG Tablet PO (09:33)
[2018-04-01] MEDS: Metoprolol Tartrate 50 MG Tablet PO (09:33)
[2018-04-01] MEDS: Levothyroxine 150 MCG Tablet PO (09:33)
--- NOTE | 2018-04-01 10:06 | PCM.DC.SUM ---
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 Upper GI bleed secondary to gastritis: An NG tube was placed in the ED. Patient admitted to the stepdown unit started on Protonix drip, ordered H&H every 6 typed and screened and consultation was placed to general surgery did speak to Dr. Olivarez patient underwent EGD by Dr. Olivarez on 04/01/2018 findings included gastritis. Patient was discharged home on PPI. 2. 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 Hypertension-blood pressure controlled, home medications continued with dose adjustment as needed 4. Hypothyroidism-patient is on levothyroxine home dose continued 5. Dyslipidemia-patient is on statin therapy, continued at home dose 6. DVT prophylaxis bilateral SCDs Patient Problems: Active and Suspected Problems Upper GI bleed (Acute) - Physical Exam General: Alert HEENT: Atraumatic Neck: Supple Lungs: Clear to auscultation Cardiovascular: Regular rate Psych/Mental Status: Normal Affect Vital Signs Temp Pulse Resp BP Pulse Ox 97.8 F 86 16 112/71 99 04/01/18 09:30 04/01/18 09:33 04/01/18 09:30 04/01/18 09:30 04/01/18 09:30 Oxygen Delivery Method Room Air Weight: 100.4 kg Body Mass Index (BMI) 46.2 Intake and Output for Last 24 Hours 03/30/18 03/31/18 04/01/18 23:59 23:59 23:59 Intake Total 2635 / 2635 1070 / 1070 Output Total 800 / 800 Balance 1835 / 1835 1070 / 1070 Laboratory Tests Past 24 Hrs 03/31/18 03/31/18 03/31/18 13:53 14:05 20:32 WBC RBC Hgb 10.9 L 10.7 L Hct 33.2 L 32.6 L MCV MCH MCHC RDW RDW Differential Plt Count MPV PT INR APTT Sodium Potassium Chloride Carbon Dioxide Anion Gap BUN Creatinine Estim Creat Clear Calc Est GFR (MDRD) Af Amer Est GFR (MDRD) Non-Af BUN/Creatinine Ratio Glucose Calcium Urine Test Negative 04/01/18 04/01/18 04/01/18 02:34 02:34 02:34 WBC 8.4 RBC 3.65 L Hgb 11.0 L Cancelled Hct 33.7 L Cancelled MCV 92.3 MCH 30.1 MCHC 32.6 RDW 13.4 RDW Differential 44.7 H Plt Count 248 MPV 9.6 PT INR APTT Sodium 139 Potassium 3.9 Chloride 107 Carbon Dioxide 25.0 Anion Gap 7 BUN 8 Creatinine 0.64 Estim Creat Clear Calc 196.31 Est GFR (MDRD) Af Amer 136 Est GFR (MDRD) Non-Af 113 BUN/Creatinine Ratio 12.5 Glucose 135 H Calcium 8.5 Urine Test 04/01/18 04/01/18 02:34 08:50 WBC RBC Hgb 10.4 L Hct 32.0 L MCV MCH MCHC RDW RDW Differential Plt Count MPV PT 13.8 INR 1.1 APTT 26.9 Sodium Potassium Chloride Carbon Dioxide Anion Gap BUN Creatinine Estim Creat Clear Calc Est GFR (MDRD) Af Amer Est GFR (MDRD) Non-Af BUN/Creatinine Ratio Glucose Calcium Urine Test Discharge Diet: No Restrictions Home Medications: Medications to take at Discharge Albuterol Sulfate [Proventil Hfa] 6.7 gm IH PRN PRN 02/21/13 Metoprolol Tartrate [Lopressor (beta claire)] 50 mg PO BID 02/21/13 Albuterol Aerosols [Ventolin Aerosols] 2.5 mg INHALATION Q4HWA.RT PRN #25 vial.neb. 01/01/16 Losartan Potassium 50 mg PO DAILY 10/09/16 Atorvastatin Calcium [Lipitor] 20 mg PO QHS 03/25/18 Levothyroxine [Synthroid] 150 mcg PO DAILY 03/25/18 Aspirin [Aspirin, Baby] 81 mg PO QHS 03/28/18 Pantoprazole Sodium [Protonix] 40 mg PO DAILY #90 tablet 04/01/18 Following Prescrptions Were Given to Patient: Pantoprazole Sodium [Protonix] 40 mg PO DAILY #90 tablet Primary Care Physician: Yina Brock MD [Primary Care Provider] - Disposition: Home Minutes spent on discharge:: 35 Patient Condition:: Stable Medical Necessity - Tobacco Use Smoking Status: Never smoker Meaningful Use Info Meaningful Use Diagnoses (Choose all that apply): None applicable Code Visit OBSV E&M: 63157 Observation care discharge
--- NOTE | 2018-04-01 10:08 | DCINST_ITS ---
- Discharge Diagnoses Current Active Problems: Current Active and Chronic Problems Hypothyroidism (Chronic) Upper GI bleed (Acute) You will use the following diet at home:: No restrictions Discharge Activity: Return to Normal Activity Allergies/Adverse Reactions: Allergies doxycycline Adverse Reaction (Verified 03/31/18 05:25) Abd cramps/diarrhea Medications to take at Discharge Albuterol Sulfate [Proventil Hfa] 6.7 gm IH PRN PRN 02/21/13 Metoprolol Tartrate [Lopressor (beta claire)] 50 mg PO BID 02/21/13 Albuterol Aerosols [Ventolin Aerosols] 2.5 mg INHALATION Q4HWA.RT PRN #25 vial.neb. 01/01/16 Losartan Potassium 50 mg PO DAILY 10/09/16 Atorvastatin Calcium [Lipitor] 20 mg PO QHS 03/25/18 Levothyroxine [Synthroid] 150 mcg PO DAILY 03/25/18 Aspirin [Aspirin, Baby] 81 mg PO QHS 03/28/18 Pantoprazole Sodium [Protonix] 40 mg PO DAILY #90 tablet 04/01/18 The following prescriptions were given: Pantoprazole Sodium [Protonix] 40 mg PO DAILY #90 tablet Primary Care Physician: Yina Brock MD [Primary Care Provider] - Please follow up with your Primary Care Physician in: in 1-2 weeks Test Results: Test results from this visit will be discussed in further detail at your follow- up appointment, if applicable. Proposed Discharge Date: 04/01/18
--- OUTSIDE RECORDS SUMMARY | 2018-06-04 09:07 | XMS RPT_ITS ---
[...] 04/02/2018 Status: F Source: [place] 9:01 AM REPOSITORY [facility] Cardiovascular Services [address] [place] [address] 12 Lead EKG 03/31/18 0545 MR#: [id number] Acct: [id number] Name: JULIANNA BRIDGES Rep #: [id number] : 1985 33 From: Mark Sheehan MD Attending Dr: David Wellington MD Status: DIS DIMITRIS Ordering Dr: Miguel Ly MD Date: 03/31/18 Location: [facility] Sex: F C Admitted: 03/31/18 Test Reason : GI BLEED Blood Pressure : / mmHG Vent. Rate : 095 BPM Atrial Rate : 095 BPM P-R Int : 158 ms QRS Dur : 072 ms QT Int : 380 ms P-R-T Axes : -05 -02 -03 degrees QTc Int : 477 ms Normal sinus rhythm Normal ECG Confirmed by DAYANARA HESS, MARK ([id number]), staff editor NOE MONTES DE OCA ([id number]) on 04/02/2018 9:01:06 AM Referred By: GUILLERMO Confirmed By:MARK SHEEHAN MD 04/02/18 0901 Date Mark Sheehan MD CC: David Wellington MD; Miguel Ly MD; Yina Brock MD Signed DISCHARGE SUMMARY Observed: 04/01/2018 Status: F Source: [place] 10:17 AM [facility] REPOSITORY [facility] Medical Records Department [address] [place] [address] Discharge Summary 04/01/18 1006 MR#: [id number] Acct: [id number] Name: JULIANNA BRIDGES Rep #: [id number] : 1985 33 From: David Wellington MD PCP: Yina Brock MD Status: ADM DIMITRIS Y Location: [place] [address] Discharge Date and Diagnosis - Problem List [...] applicable Code Visit OBSV E AND M: 57288 Observation care discharge 04/01/18 1017 <Electronically signed by David Wellington MD> Date David Wellington MD Cosigner Signature (if applicable): Date CC: David Wellington MD; Yina Brock MD Signed DISCHARGE INSTRUCTION Observed: 04/01/2018 Status: F Source: [place] 10:08 AM REPOSITORY [facility] Medical Records Department [address] [place] [address] Instructions for Home/Discharge Instructions 04/01/18 1007 MR#: [id number] Acct: [id number] Name: JULIANNA BRIDGES Rep #: [id number] : 1985 33 From: David Wellington MD [...] Status: F Source: [place] HEMATOCRIT 8:50 AM REPOSITORY Order Comment: PT DOWN FOR ENDO. SPOKE WITH ALISHA [employer] [facility] WHEN PT RETURNS. TYPE CODE TESTS RESULT OUT OF RANGE REFERENCE UNITS LAB L100.1300 12.0-15.0 g/dl Low HGB 10.4 LAB L100.1400 37-47 % Low HCT 32.0 Performed By: #### L100.0600 #### [facility] [address] [place], [place], [address] GASTRIC BIOPSY Observed: 04/01/2018 Status: F Source: [place] 8:05 AM REPOSITORY Patient: JULIANNA BRIDGES : 1985 (33/F) Acct Num: [id number] Phys: Amish HESS, Unit Num: [id number] Loc: [facility] [id number] Specimen: [id number] Received: 04/02/18 - 1016 Spec [...] one cassette. / AM:trice 04/02/18 TC:3 CPT: 38607 HEADER OPERATION: EGD ([facility]) PRE-OP DIAGNOSIS: GIB TISSUE SUBMITTED: Antral biopsy for H. pylori and pathology MICROSCOPIC DESCRIPTION Slides are reviewed. MICROSCOPIC DIAGNOSIS Gastric antrum, biopsy: Mild chronic gastritis. AM:trice 04/03/18 Signed Hunter Camarillo, 04/03/18 <signature on file> Performed By: #### PGASB #### [facility] [address] [place], [address] IMMUNOHISTOCHEMISTRY Observed: 04/01/2018 Status: F Source: [place] 8:05 AM REPOSITORY Patient: JULIANNA BRIDGES : 1985 (33/F) Acct Num: [id number] Phys: David Wellington MD Unit Num: [id number] Loc: U [id number] Specimen: [id number] Received: 04/02/18 - 1156 Spec Type: IMMUNO TISSUES 1 TISSUES: Gastric mucous membrane SPECIMEN INFORMATION: Tissue Source: Antral biopsy Clinical Info: GIB Specimen Number: [id number] CPT code: 15502 METHODOLOGY: Deparaffinized sections of prefer/formalin-fixed tissue or PAP/DQ stained slides are incubated with monoclonal/polyclonal antibodies/oligonucleotide probes. Localization is made via biotin free immunoperoxidase method. Appropriate controls are performed and reacted as expected. Results on target cell population are indicated in the following table: RESULTS: ANTIBODY / CLONE RESULT H Pylori (polyclonal) negative These tests were developed and their performance characteristics determined by [facility]. They may not have been cleared or approved by the U.S. Food and Drug Administration. The FDA has determined that such clearance or approval is not necessary. INTERPRETATION: Antral biopsy: Negative for Helicobacter pylori organisms. AM:trice 04/03/18 PHYSICIAN AND INSTITUTION [place] [address] Signed Hunter Camarillo, DO 04/03/18 <signature on file> Performed By: #### PIMM #### [facility] [address] [place] [address]. [place], [place], [id number] CBC-COMPLETE BLOOD CNT Collected: 04/01/2018 Status: F Source: [place] NO DIFF 2:34 AM REPOSITORY TYPE CODE TESTS RESULT OUT OF [...] MPV 9.6 Performed By: #### L100.0500 #### [facility] [address] [place], [address] BASIC METABOLIC Collected: 04/01/2018 Status: F Source: [place] PROFILE (BMP) 2:34 AM REPOSITORY TYPE CODE TESTS RESULT OUT OF [...] Normal 7 Performed By: #### L500.2500 #### [facility] [address] [place], [address] PROTHROMBIN TIME W/INR Collected: 04/01/2018 Status: F Source: [place] 2:34 AM REPOSITORY TYPE CODE TESTS RESULT OUT OF RANGE REFERENCE UNITS LAB L300.4150 11.7-14.9 SECONDS Normal PROTIME 13.8 LAB L300.4200 Normal INR 1.1 Performed By: #### L300.3900, L300.4310 #### [facility] [address] [place], [address] PARTIAL THROMBOPLAST Collected: 04/01/2018 Status: F Source: [place] TIME 2:34 AM REPOSITORY TYPE CODE TESTS RESULT OUT OF RANGE REFERENCE UNITS LAB L300.4310 24.1-36.2 Seconds Normal PTT 26.9 Performed By: #### L300.3900, L300.4310 #### [facility] [address] [place], [address] HH, HEMOGLOBIN AND Collected: 03/31/2018 Status: F Source: [place] HEMATOCRIT 8:32 PM REPOSITORY TYPE CODE TESTS RESULT OUT OF RANGE REFERENCE UNITS LAB L100.1300 12.0-15.0 g/dl Low HGB 10.7 LAB L100.1400 37-47 % Low HCT 32.6 Performed By: #### L100.0600 #### [facility] [address] [place], [address] ,URINE Collected: 03/31/2018 Status: F Source: [place] 2:05 PM REPOSITORY Order Comment: Has pt arrived? Y TYPE CODE TESTS RESULT OUT OF REFERENCE UNITS RANGE LAB L400.8000 Negative Normal HCGUQUAL Negative Result Comment: Very dilute urine specimens, as indicated by a low specific gravity, may not contain sales solutions representative levels of hCG. If is still suspected, a first morning urine specimen should be collected 48 hours later and tested. Performed By: #### L400.7600 #### [facility] [address] [place], [address] HH, HEMOGLOBIN AND Collected: 03/31/2018 Status: F Source: [place] HEMATOCRIT 1:53 PM REPOSITORY TYPE CODE TESTS RESULT OUT OF RANGE REFERENCE UNITS LAB L100.1300 12.0-15.0 g/dl Low HGB 10.9 LAB L100.1400 37-47 % Low HCT 33.2 Performed By: #### L100.0600 #### [facility] [address] [place], [address] HH, HEMOGLOBIN AND Collected: 03/31/2018 Status: F Source: [place] HEMATOCRIT 8:50 AM REPOSITORY TYPE CODE TESTS RESULT OUT OF RANGE REFERENCE UNITS LAB L100.1300 12.0-15.0 g/dl Low HGB 11.5 LAB L100.1400 37-47 % Low HCT 34.4 Performed By: #### L100.0600 #### [facility] [address] [facility] [place] [place], [address] HISTORY AND PHYSICAL Observed: 03/31/2018 Status: F Source: [place] EXAM 7:39 AM REPOSITORY [facility] Medical Records Department [address] [place] [address] History and Physical 03/31/18 0718 MR#: [id number] Acct: [id number] Name: JULIANNA BRIDGES Rep #: [id number] : 1985 33 From: David Wellington MD [...] SCDs Code Visit OBSV E AND M: 10904 Initial observation care L3 03/31/18 0738 <Electronically signed by David Wellington MD> Date David Wellington MD Cosigner Signature: Date (if applicable) CC: David Wellington MD; Yina Brock MD Signed EMERGENCY DEPARTMENT Observed: 03/31/2018 Status: F Source: [place] SUMMARY 6:50 AM REPOSITORY [facility] Medical Records Department [address] [place] [address] Emergency Department Summary 03/31/18 0645 MR#: [id number] Acct: [id number] Name: JULIANNA BRIDGES Rep #: [id number] : 1985 33 From: Miguel Ly MD [...] GI bleed This note was generated with [employer] dictation software. It may contain incorrect words, [...] your Primary Care Provider. Call [facility] ([phone]) or report to the closest Emergency Room. Call 911 if necessary. 03/31/18 0650 <Electronically signed by Miguel Ly MD> Date Miguel Ly MD Cosigner Signature (If Indicated): Date CC: Yina Brock MD CHEST 1 VIEW Observed: 03/31/2018 Status: F Source: [place] (PORTABLE) 5:39 AM REPOSITORY [facility] Imaging Services [address] [place] [address] Chest 1 View (Portable) MR#: [id number] Acct: [id number] Name: JULIANNA BRIDGES Rep #: [id number] : 1985 F 33 From: Savi Alcaraz MD PCP: Yina Brock MD Status: REG ER Study: Chest 1 View (Portable) Date of Exam: 03/31/18 Exam# [id number] Ordering Dr: Miguel Ly MD STUDY: X-RAY [...] CC: Miguel Ly MD; Yina Brock MD Manager Rental: Signed ABDOMEN SINGLE VIEW Observed: 03/31/2018 Status: F Source: [place] (PORTABLE) 5:39 AM REPOSITORY [facility] Imaging Services [address] [place] [address] Abdomen Single View (Portable) MR#: [id number] Acct: [id number] Name: JULIANNA BRIDGES Rep #: [id number] : 1985 F 33 From: Savi Alcaraz MD PCP: Yina Brock MD Status: REG ER Study: Abdomen Single View (Portable) Date of Exam: 03/31/18 Exam# [id number] Ordering Dr: Miguel Ly MD STUDY: X-RAY [...] CC: Miguel Ly MD; Yina Brock MD Manager Rental: Signed CBC W/DIFF, AUTOMATED Collected: 03/31/2018 Status: F Source: [place] 5:25 AM REPOSITORY TYPE CODE TESTS RESULT OUT OF [...] Lymph 2.19 Performed By: #### L100.0100 #### [facility] [address] [place], [address] PROTHROMBIN TIME W/INR Collected: 03/31/2018 Status: F Source: [place] 5:25 AM REPOSITORY TYPE CODE TESTS RESULT OUT OF RANGE REFERENCE UNITS LAB L300.4150 11.7-14.9 SECONDS Normal PROTIME 12.7 LAB L300.4200 Normal INR 1.0 Performed By: #### L300.3900 #### [facility] [address] [place], [address] COMPREHENSIVE METABOLIC Collected: 03/31/2018 Status: F Source: [facility] 5:25 AM REPOSITORY TYPE CODE TESTS RESULT OUT OF [...] Performed By: #### L500.4050, L501.2450, L501.4010 #### [facility] [address] [facility] [place], [place], [address] LIPASE Collected: 03/31/2018 Status: F Source: [place] 5:25 AM REPOSITORY TYPE CODE TESTS RESULT OUT OF RANGE REFERENCE UNITS LAB L501.2450 73-393 U/L Normal LIPASE 115 Performed By: #### L500.4050, L501.2450, L501.4010 #### [facility] [address] [facility] [place], [address] TROPONIN-I Collected: 03/31/2018 Status: F Source: [place] 5:25 AM REPOSITORY TYPE CODE TESTS RESULT OUT OF RANGE REFERENCE UNITS LAB L501.4010 <0.045 ng/mL Normal < 0.015 TROPONIN-I Result Comment: TROPONIN-I EXPECTED VALUES <0.045 Negative 0.045 - 0.590 Consistent with Cardiac Damage > OR = 0.600 Critical Value Not every elevated troponin is indicative of MO. These values should be used with clinical judgement in examining the patient's clinical picture for diagnosis. To establish a diagnosis of MO versus myocardial injury, there must be a demonstrated rise and/or fall in the troponin values, in addition to ischemic symptoms, EKG changes, new regional wall motion abnormality, and/or angiographical evidence. PLEASE NOTE: REFERENCE RANGES EDITED 17 Performed By: #### L500.4050, L501.2450, L501.4010 #### [facility] [address] [place], [address] EMERGENCY DEPARTMENT Observed: 03/28/2018 Status: F Source: [place] SUMMARY 11:31 PM REPOSITORY [facility] Medical Records Department [address] [facility] [place] [address] Emergency Department Summary 03/28/182024 MR#: [id number] Acct: [id number] Name: JULIANNA BRIDGES Rep #: [id number] : 1985 33 From: Lisa Thayer MD [...] your Primary Care Provider. Call [facility] ([phone]) or report to the closest Emergency Room. Call 911 if necessary. 03/28/18 1516 <Electronically signed by Lisa Thayer MD> Date Lisa Thayer MD Cosigner Signature (If Indicated): Date CC: Yina Brock MD Observed: 03/28/2018 Status: F Source: [place] STOOL OCCULT BLOOD 8:30 PM IF[facility] REPOSITORY STOB iFOB Occult Blood Positive ORGANISM 1: OCCULT BLOOD POSITIVE Performed By: #### M100.7900 #### [facility] [address] [place], [place], [address] CBC W/DIFF, AUTOMATED Collected: 03/28/2018 Status: F Source: [place] 7:14 PM REPOSITORY TYPE CODE TESTS RESULT OUT OF [...] Lymph 1.92 Performed By: #### L100.0100 #### [facility] [address] [facility] [place], [address] TYPE AND SCREEN Collected: 03/28/2018 Status: F Source: [place] 7:14 PM REPOSITORY Order Comment: Has pt arrived? Y Reason for Type AND Screen/Red Cells: HEMORRHAGE, GI BLEED TYPE CODE TESTS RESULT OUT OF RANGE REFERENCE UNITS LAB B10.0800 O Normal BLOOD TYPE GEL POSITIVE LAB B100.4000 Normal Antibody NEGATIVE Screen Performed By: #### B101.7450 #### [facility] [address] [facility] [place], [address] BASIC METABOLIC Collected: 03/28/2018 Status: F Source: [place] PROFILE (BMP) 7:14 PM REPOSITORY TYPE CODE TESTS RESULT OUT OF [...] Normal 9 Performed By: #### L500.2500 #### [facility] [address] [facility] [place], [address] 12 LEAD ELECTROCARDIOGRAM Observed: 03/27/2018 Status: F Source: [place] 5:09 PM REPOSITORY [facility] Cardiovascular Services [address] [place] [address] 12 Lead EKG 03/25/18 1623 MR#: [id number] Acct: [id number] Name: JULIANNA BRIDGES Rep #: [id number] : 1985 33 From: Mark Sheehan MD [...] ECG Confirmed by MARK SHEEHAN MD ([id number]), staff editor HERMINIA ALCARAZ ([id number]) on 03/27/2018 5:09:13 PM Referred By: BRADLEY Confirmed By:MARK SHEEHAN MD 03/27/18 5059 Date Mark Sheehan MD CC: Lise Chan MD; Yina Brock MD Signed DISCHARGE INSTRUCTION Observed: 03/25/2018 Status: F Source: [place] 6:37 PM REPOSITORY [facility] Medical Records Department [address] [place] [address] Discharge Instruction 03/25/181836 MR#: [id number] Acct: [id number] Name: TONEY BRIDGESAYLEEN Burton Rep #: [id number] : 1985 33 From: Lise Chan MD [...] your Primary Care Provider. Call [facility] ([phone]) or report to the closest Emergency Room. Call 911 if necessary. 03/25/181836 <Electronically signed by Lise Chan MD> Date Lise Chan MD Cosigner Signature (If Indicated): Date CC: Yina Brock MD EMERGENCY DEPARTMENT Observed: 03/25/2018 Status: F Source: [place] SUMMARY 6:36 PM REPOSITORY [facility] Medical Records Department [address] [place] [address] Emergency Department Summary 03/25/18 1722 MR#: [id number] Acct: [id number] Name: JULIANNA BRIDGES Rep #: [id number] : 1985 33 From: Lies Chan MD PCP: Yina Brock MD Status: [...] arm pain This note was generated with [employer] dictation software. It may contain incorrect words, [...] your Primary Care Provider. Call [facility] ([phone]) or report to the closest Emergency Room. Call 911 if necessary. 03/25/18 5486 <Electronically signed by Lise Chan MD> Date Lise Chan MD Cosigner Signature (If Indicated): Date CC: Yina Brock MD CBC W/DIFF, AUTOMATED Collected: 03/25/2018 Status: F Source: [place] 4:30 PM REPOSITORY TYPE CODE TESTS RESULT OUT OF [...] Lymph 1.80 Performed By: #### L100.0100 #### [facility] [place], [address] BASIC METABOLIC Collected: 03/25/2018 Status: F Source: [place] PROFILE (BMP) 4:30 PM REPOSITORY TYPE CODE TESTS RESULT OUT OF [...] 11 Performed By: #### L500.2500, L501.4010 #### [facility] [address] [place], [place], [address] TROPONIN-I Collected: 03/25/2018 Status: F Source: [place] 4:30 PM REPOSITORY TYPE CODE TESTS RESULT OUT OF RANGE REFERENCE UNITS LAB L501.4010 <0.045 ng/mL Normal < 0.015 TROPONIN-I Result Comment: TROPONIN-I EXPECTED VALUES <0.045 Negative 0.045 - 0.590 Consistent with Cardiac Damage > OR = 0.600 Critical Value Not every elevated troponin is indicative of MO. These values should be used with clinical judgement in examining the patient's clinical picture for diagnosis. To establish a diagnosis of MO versus myocardial injury, there must be a demonstrated rise and/or fall in the troponin values, in addition to ischemic symptoms, EKG changes, new regional wall motion abnormality, and/or angiographical evidence. PLEASE NOTE: REFERENCE RANGES EDITED 17 Performed By: #### L500.2500, L501.4010 #### [facility] [address] [place], [address] CHEST 1 VIEW Observed: 03/25/2018 Status: F Source: [place] (PORTABLE) 4:18 PM [facility] REPOSITORY [facility] Imaging Services [address] [place] [address] Chest 1 View (Portable) MR#: [id number] Acct: [id number] Name: JULIANNA BRIDGES Rep #: [id number] : 1985 F 33 From: Dariel Bain MD PCP: Yina Brock MD Status: PRE ER Study: Chest 1 View (Portable) Date of Exam: 03/25/18 Exam# [id number] Ordering Dr: Lise Chan MD STUDY: X-RAY [...] View (Portable) CC: Lise Chan MD; Yina Brokc MD Manager Rental: Signed BRAIN/HEAD WITHOUT Observed: 03/25/2018 Status: F Source: [place] CONTRAST 4:18 PM [facility] REPOSITORY [facility] Imaging Services [address] [place] [address] Brain/Head without Contrast MR#: [id number] Acct: [id number] Name: JULIANNA BRIDGES Rep #: [id number] : 1985 F 33 From: Toby Sheppard MD PCP: Yina Brock MD Status: REG ER Study: Brain/Head without Contrast Date of Exam: 03/25/18 Exam# [id number] Ordering Dr: Lise Chan MD STUDY: CT [...] CC: Lise Chan MD; Yina Brock MD Manager Rental: Signed CTA CHEST W/WO Observed: 03/25/2018 Status: F Source: [place] CONTRAST 4:18 PM [facility] REPOSITORY [facility] Imaging Services [address] [place] [address] CTA Chest W/WO Contrast MR#: [id number] Acct: [id number] Name: JULIANNA BRIDGES Rep #: [id number] : 1985 F 33 From: Jose Fonseca MD PCP: Yina Brock MD Status: REG ER Study: CTA Chest W/WO Contrast Date of Exam: 03/25/18 Exam# [id number] Ordering Dr: Lise Chan MD STUDY: CTA [...] CC: Lise Chan MD; Yina Brock MD Manager Rental: Signed PROGRESS Observed: 03/01/2018 Status: COMPLETED Source: [place] 8:[address] [facility] REPOSITORY HNO ID: [id number] Author: Sadaf Gaona (Pa) Service: (none) Author Type: Physician Assistant Foreman Type: Progress Notes Filed: 03/01/2018 9:01 PM [...] PA-C CNOV Observed: 03/01/2018 Status: COMPLETED Source: [place] 8:45 PM [facility] REPOSITORY Office Visit (WSTR) JULIANNA BRIDGES ([id number]) 1985 F [facility] Date Time Provider Department 03/01/18 8:45 [...] Saxena PA-C 03/01/2018 8:59 PM Signed [facility] [address] [place] [address] Emergency Department Diagnosis: Assessment COUGH: Your doctor [...] FOR* Other instructions from your clinician: [facility] [address] [place] [address] Emergency Department Diagnosis: Assessment COUGH: Your doctor [...] 3V AP Observed: 11/16/2017 Status: F Source: [place] RIB/OBL/CHST L 4:55 PM [facility] [...] IMPRESSION: Negative chest and left rib x-rays. Manager Rental: PSCB Transcribe Date/Time: Nov 16 2017 5:21P Dictated by : SUZIE GAMBLE MD This examination was interpreted and the report reviewed and electronically signed by: SUZIE GAMBLE MD on Nov 16 2017 5:22PM EST [id number] PROGRESS Observed: 11/16/2017 Status: COMPLETED Source: [place] 4:39 PM [facility] REPOSITORY HNO ID: [id number] Author: Diamante Calvert Service: (none) Author Type: [...] PM PROGRESS Observed: 11/16/2017 Status: COMPLETED Source: [place] 4:07 PM [facility] REPOSITORY HNO ID: [id number] Author: Raghav Qureshi Service: (none) Author Type: [...] APRN.LUIGI CNOV Observed: 11/16/2017 Status: COMPLETED Source: [place] 4:00 PM [facility] REPOSITORY Office Visit (WSTR) JULIANNA BRIDGES ([id number]) 1985 [facility] Date Time Provider Department 11/16/17 4:00 PM [...] Fully Assessed Reason for Visit: Rib Injury [71602] Cmt: left side rib pain into back x 2 days Primary Visit Diagnosis:Rib pain on left side [R07.81] Order(s):XR RIBS/CHEST 3V AP RIB/OBLS/CXR LT [6455160] Order #: [id number]. #:[id number] Prescriptions as of 11/16/2017 Sig: MULTIVITAMIN CAPSULE [...] 09/19/2017 Status: COMPLETED Source: [place] 10:[address] [facility] [place] REPOSITORY HNO ID: [id number] Author: Vania Craft Cma Service: (none) Author Type: (none) Type: Progress Notes Filed: 09/19/2017 12:43 PM Note Text: Mychart message read. Please file orders PROGRESS Observed: 09/14/2017 Status: COMPLETED Source: [place] 2:04 PM [facility] REPOSITORY HNO ID: [id number] Author: Vania Craft Tool Designer Service: (none) Author Type: (none) Type: Progress Notes Filed: 09/19/2017 12:43 PM Note Text: MyChart message sent. PROGRESS Observed: 09/14/2017 Status: COMPLETED Source: [place] 2:01 PM [facility] REPOSITORY HNO ID: [id number] Author: Vania Craft Tool Designer Service: (none) Author Type: (none) Type: Progress [...] 5 YEARS due on 08/31/2017 Vania Craft [facility] CNPTOUTREACH Observed: 09/14/2017 Status: COMPLETED Source: [place] 12:00 AM [facility] REPOSITORY Patient Outreach (INTMWS) JULIANNA BRDIGES ([id number]) 1985 F [place] Date Time Provider Department 09/14/17 VANIA CRAFT ([facility]) IN[facility] During your visit today, we recorded the following information about you: Vania Craft [facility] 09/19/2017 12:43 PM Signed [facility] TEAMLET DOCUMENTATION [...] 5 YEARS due on 08/31/2017 Vania Craft [facility] Vania Craft [facility] 09/19/2017 12:43 PM Signed [email or web address] message sent. Vania Craft [facility] 09/19/2017 12:43 PM Signed 10sec message read. Please file orders Allergies As of Date: 09/14/2017 Noted Allergy Reaction DOXYCYCLINE 12/22/2008 8 - GI Upset Comments: Relates to giving herself severe abd cramping, hematuria Date Reviewed: 12/02/2016 Reviewed by: Mariusz Encarnacion Ma - Fully Assessed Reason for Visit: PHMA/Care Gap Outreach [8548] Primary Visit Diagnosis:Hyperlipidemia, unspecified hyperlipidemia type [E78.5] Other Visit Diagnoses:Acquired hypothyroidism [E03.9] Uncomplicated asthma, unspecified asthma severity, unspecified whether persistent [J45.909] Order(s):TSH BLD [SQTSH] Order #: [id number] FUTURE LIPID PANEL BASIC [SQLIPB] Order #: [id number] FUTURE COMP METABOLIC PANEL [SQCMP] Order #: [id number] FUTURE Prescriptions as of 09/14/2017 Sig: MULTIVITAMIN [...] 09/19/17 PROGRESS Observed: 05/30/2017 Status: COMPLETED Source: [place] 7:[address] [facility] [place] REPOSITORY HNO ID: [id number] Author: Vania Craft Cma Service: (none) Author Type: (none) Type: Progress Notes Filed: 05/30/2017 7:14 AM Note Text: External document suggests patient see Cardio at [facility]. Last visit was 04/13/2017 and he BP was 109/72. RATE ANALYST updated in vitals. Patient did read my [email or web address] message and can contact office if she's interested in making an appointment for follow up with PCP or RATE ANALYST. PROGRESS Observed: 05/24/2017 Status: COMPLETED Source: [place] 2:[address] [facility] [place] REPOSITORY HNO ID: [id number] Author: Vania Craft Cma Service: (none) Author Type: (none) Type: Progress Notes Filed: 05/30/2017 7:14 AM Note Text: MyChart message sent. PROGRESS Observed: 05/24/2017 Status: COMPLETED Source: [place] 2:11 PM [facility]INIC [facility] [place] REPOSITORY HNO ID: [id number] Author: Vania Craft Cma Service: (none) Author Type: (none) Type: Progress Notes Filed: 05/30/2017 7:14 AM Note Text: Left message for patient to return call #[phone] PROGRESS Observed: 05/24/2017 Status: COMPLETED Source: [place] 2:[address] [facility] [place] REPOSITORY HNO ID: [id number] Author: Vania Craft Cma Service: (none) Author [...] Follow-up next available with Provider pcp or safety and health manager (no showed last appointment on 04/19/17 and never r/s) with labs prior Labs, HM and Immunization: Health Maintenance Due: TETANUS due on 1995 HPV EVERY 5 YEARS due on 2014 INFLUENZA(1) due on 11/11/2016 PAP EVERY 5 YEARS due on 08/31/2017 Vania Craft Tool Designer CNPTOUTREACH Observed: 05/24/2017 Status: COMPLETED Source: [place] 12:00 AM [facility] REPOSITORY Patient Outreach (INTMWS) SEBLE HUSTONJULIANNA ([id number]) 1985 F PROMISE Date Time Provider Department 05/24/17 [facility] During your visit today, we recorded the following information about you: Blood pressure 109/72 Vania Craft [facility] 05/30/2017 7:14 AM Signed PHMA TEAMLET DOCUMENTATION [...] Follow-up next available with Provider pcp or safety and health manager (no showed last appointment on 04/19/17 and never r/s) with labs prior Labs, HM and Immunization: Health Maintenance Due: TETANUS due on 1995 HPV EVERY 5 YEARS due on 2014 INFLUENZA(1) due on 11/11/2016 PAP EVERY 5 YEARS due on 08/31/2017 Vania Craft Tool Designer Vania Venancio [facility] 05/30/2017 7:14 AM Signed Left message for patient to return call #[phone] Vania Craft [facility] 05/30/2017 7:14 AM Signed Swatchcloudhart message sent. Vania Craft [facility] 05/30/2017 7:14 AM Signed External document suggests patient see Cardio at [facility] [place]. Last visit was 04/13/2017 and he BP was 109/72. RATE ANALYST updated in vitals. Patient did read my [email or web address] message and can contact office if she's interested in making an appointment for follow up with PCP or RATE ANALYST. Allergies As of Date: 05/24/2017 Noted Allergy Reaction DOXYCYCLINE 12/22/2008 8 - GI Upset Comments: Relates to giving herself severe abd cramping, hematuria Date Reviewed: 12/02/2016 Reviewed by: Mariusz Encarnacion Ma - Fully Assessed Reason for Visit: PHMA/[facility] [place] Outreach [[id number]] Prescriptions as of 05/24/2017 Sig: MULTIVITAMIN CAPSULE [...] / CODE REACTION SEVERITY SOURCE 03/31/2018 Drug doxycycline/[id number] Abd Unknown Ione Allergy/416 2748(RXNORM) cramps/diarrhea Community [id number]([facility] ED CT) Repository 12/22/2008 DRUG DOXYCYCLINE GI UPSET [facility] INGREDI/[facility] Main [place] [id number]([facility] ED CT) ENCOUNTERS ENCOUNTERS ADMIT/DISCHARGE ACCOUNT ADMITTING ENCOUNTER LOCATION SOURCE NUMBER CLASS 03/31/2018/04/01/19 [id number] [facility] [address] ing:PCURoom: Repository [id number]: 1 03/31/2018 [id number] [facility] BMSBuilding:Alon Rai [place] Repository 03/31/2018 [id number] Ambulatory BMSBuilding:Alon Rai [facility] Repository 03/28/2018/03/28/19 [id number] Emergency [address] ing:ED Repository 03/25/2018/03/25/19 [id number] Emergency [address] ing:ED Repository 03/01/2018/03/02/20 [id number] Ambulatory [address] Repository 11/16/2017/11/17/[id number] Repository 11/16/2017/11/18/19 [id number] Ambulatory [address] Repository PAYERS PAYERS ENCOUNTER GUARANTOR PAYER SUBSCRIBER SOURCE 03/31/2018 JULIANNA J VANDER Primary NOT GIVENUNK Ione [id number] [place] Insurance:SELF PAY [facility] 16538Vud: [phone]) Number: Effective Repository [phone] () Date:2018-03-31 03/31/2018 JULIANNA J VANDER Primary NOT GIVENUNK Cecelia [id number] [place] Insurance:SELF PAY [facility] [id number]: [phone]) Number: Effective Repository [phone] () Date:2018-03-31 03/31/2018 JULIANNA J VANDER Primary NOT GIVENUNK Cecelia [id number] [place] Insurance:SELF PAY [place] [id number]: [phone]) Number: Effective Repository [phone] () Date:2018-03-31 03/28/2018 JULIANNA J VANDER Primary NOT GIVENUNK Cecelia [id number] [place] Insurance:SELF PAY [place] [address]365Tel: [phone]) Number: Effective Repository [phone] () Date:2018-03-28 03/25/2018 JULIANNA J VANDER Primary NOT GIVENUNK Ione [id number] [place] Insurance:SELF PAY [facility] 70703Xvo: [phone]) Number: Effective Repository [phone] () Date:2018-03-25
== END 2018-04-01 10:08 | disposition home or self-care (01) ==
LOC: ED 05:53 → PCU 07:48
PROVIDERS: Anesthesiology; Surgery; Admitting Provider Internal Medicine; Emergency Provider Emergency Medicine; Family Provider Internal Medicine; PCP Internal Medicine; Visit Provider Internal Medicine
PROC: 0DJ08ZZ Inspection of Upper Intestinal Tract, Via Natural or Artificial Opening Endoscopic (ICD-10-PCS; CPT 43235; principal; 2018-04-01 08:00)
DX: K92.0 Hematemesis (principal); E03.9 Hypothyroidism, unspecified; Z79.899 Other long term (current) drug therapy; Z79.82 Long term (current) use of aspirin; Q23.1 Congenital insufficiency of aortic valve; Q96.9 Turner's syndrome, unspecified; E78.5 Hyperlipidemia, unspecified; I10 Essential (primary) hypertension; K29.50 Unspecified chronic gastritis without bleeding
CPT/HCPCS: 43239; 36415; 71045; 74018; 80048; 80053; 81025; 83690; 84484; 85014; 85018; 85025; 85027; 85610; 85730; 88305; 88342; 93005; 96361; 96365; 96366; 96375; 96376; 97802; 99218; 99285; J7030; J7040; A4216; G0378; J2405; J3490; J7799

== ENCOUNTER 2018-05-10 17:52 | Emergency (ER) | payer MEDICAID, SELFPAY ==
[2018-03-31 21:48] VITALS: BMI 46.2
[2018-05-10 17:53] VITALS: BP 158/94; PULSE 104; RESP 18; TEMP 36.2; O2SAT 100; BMI 45.7
[2018-05-10] MEDS: 0.9% Normal Saline 1,000 ML 1000 ML IV (18:36)
[2018-05-10] MEDS: Ondansetron 4 MG/2 ML Vial IV (18:36)
[2018-05-10 18:53] LABS: Absolute Lymphocyte Count 1.82 X10^3/ul (0.83-4.51); Absolute Neutrophil Count 6.4 X10^3/uL (2.0-7.7); Basophil# 0.05 X10^3/uL; Basophil% 0.6 % (0-1); Eosinophil# 0.11 X10^3/uL; Eosinophils% 1.2 % (0-5); Hematocrit 42.4 % (37-47); Hemoglobin 13.8 g/dl (12.0-15.0); Lymphocyte # 1.82 X10^3/ul (4.0); Lymphocyte % 20.3 % (19-41); Mean Corp Hgb Conc 32.5 g/gl (32-36); Mean Corpuscular Hgb 28.5 pg (27.0-32.0); Mean Corpuscular Volume 87.4 fL (81-99); Mean Platelet Vol. 9.7 fl (6.2-12.0); Monocyte# 0.48 X10^3/uL; Monocyte% 5.4 % (0-10); Neutrophil % 71.4 % (47-70); POSITIVE COUNT NO; POSITIVE DIFFERENTIAL NO; POSITIVE MORPHOLOGY NO; Platelet Count 287 K/mm3 (150-450); RBC Distribution Width CV 12.7 % (11.6-14.6); RBC Distribution Width SD 39.6 fl (35.1-43.9); Red Blood Count 4.85 M/mm3 (4.2-5.4)
--- NOTE | 2018-05-10 18:58 | ED.VISSUMM ---
- ER Visit Summary Date of Service: 05/10/18 Chief Complaint: Vomiting History of Present Illness: The patient is a 33 F presenting with vomiting. She states she had dark emesis since last night. She had 3-4 episodes. She states she also had dark stool yesterday. Her last bowel movement was normal in color. She has history of previous upper GI bleed. At that time she had EGD which showed gastritis. She is on Protonix. Physical Examination: Vitals are stable. Patient is afebrile. Alert no acute distress. HEENT exam is unremarkable. Neck is supple. Lungs are clear and equal bilaterally. Heart is regular rate and rhythm. Abdomen is soft nontender nondistended. No guarding or rebound Extremities are unremarkable. Skin is warm and dry. No focal neurologic deficit. Remainder of exam is unremarkable. Emergency Department Course and Treatment: Patient was given IV fluids, Zofran. CBC, chemistries unremarkable. Liver enzymes show ALT 65, lipase 115. NG tube was placed and had clear aspirate. Stool is guaiac negative. On reevaluation, patient is resting comfortably. She is given prescription for Zofran. She is advised to follow-up with her primary care physician. Advised return to ED if worsening complaints. Disposition: Discharge home Impression: Abdominal pain, vomiting This note was generated with [employer] dictation software. It may contain incorrect words, spelling, and punctuation that were not noted in review of the chart prior to signing ED Disposition - Plan for ED Patient: Instructions: ED Diet Vomiting Diarrhea Prescriptions: Ondansetron [Zofran Odt] 4 mg PO Q8H PRN PRN #10 tablet PRN Reason: Nausea Referrals: Yina Brock MD [Primary Care Provider] -
[2018-05-10 19:05] LABS: AST(SGOT) 37 U/L (15-37); Alanine Aminotransfer ALT/SGPT 65 U/L (13-56); Albumin, Serum 4.1 g/dL (3.2-5.0); Alkaline Phosphatase 101 U/L (45-117); Anion Gap 12 (5-15); BUN 11 mg/dL (7-18); BUN/Creat Ratio 16.3 RATIO (10-20); Bilirubin, Direct 0.12 mg/dL (0.00-0.30); Calcium,Total 9.8 mg/dL (8.5-10.1); Chloride 105 mmol/L (98-107); Creatinine, Serum 0.67 mg/dL (0.55-1.02); EST Glomerular Filtration Rate 106 mL/min (>60); Est Glom Filt Rate - Afr Amer 129 mL/min (>60); Estimated Creatinine Clearance 185.28 ml/min; Globulin 4.2 g/dL (2.2-4.2); Glucose 112 mg/dL (74-106); Lipase 115 U/L (73-393); Potassium 3.9 mmol/L (3.5-5.1); Protein, Total 8.3 g/dL (6.4-8.2); Sodium Level 143 mmol/L (136-145)
--- NOTE | 2018-05-10 19:55 | ED.DEP ---
ED Disposition - Plan for ED Patient: Instructions: ED Diet Vomiting Diarrhea Prescriptions: Ondansetron [Zofran Odt] 4 mg PO Q8H PRN PRN #10 tablet PRN Reason: Nausea Referrals: Yina Brock MD [Primary Care Provider] -
[2018-05-10 20:13] VITALS: BP 138/75; PULSE 98; RESP 17; O2SAT 99
== END 2018-05-10 20:14 | disposition home or self-care (01) ==
LOC: ED 18:44
PROVIDERS: Emergency Provider Emergency Medicine; Family Provider Internal Medicine; PCP Internal Medicine
DX: R10.9 Unspecified abdominal pain (principal); R11.2 Nausea with vomiting, unspecified; Q96.9 Turner's syndrome, unspecified; Z79.82 Long term (current) use of aspirin; Z79.899 Other long term (current) drug therapy; Z87.19 Personal history of other diseases of the digestive system
CPT/HCPCS: 80048; 80076; 82274; 83690; 85025; 96361; 96374; 99285; J7030; A4216; J2405

== ENCOUNTER 2018-06-25 16:28 | Emergency (ER) | payer MEDICAID, SELFPAY ==
[2018-06-25 16:28] VITALS: BP 136/107; PULSE 112; RESP 18; TEMP 36.8; O2SAT 99; BMI 46.9
--- NOTE | 2018-06-25 16:44 | EKG12_ITS ---
Test Reason : Blood Pressure : / mmHG Vent. Rate : 090 BPM Atrial Rate : 090 BPM P-R Int : 156 ms QRS Dur : 084 ms QT Int : 384 ms P-R-T Axes : 010 -13 002 degrees QTc Int : 469 ms Normal sinus rhythm Septal MA, age undetermined, cannot be excluded Confirmed by EUFEMIA HESS, DAVID ([id number]), scientific editor HERMINIA ALCARAZ ([id number]) on 06/27/2018 9:35:48 AM Referred By: BRADLEY Confirmed By:DAVID FALL MD
--- NOTE | 2018-06-25 16:44 | RAD_ITS ---
STUDY: X-RAY CHEST REASON FOR EXAM: Female, 33 years old. Chest pain. TECHNIQUE: Single AP portable view of the chest. COMPARISON: March 25, 2018 FINDINGS: Cardiac monitoring leads are present. The lungs are clear and expanded. There is no demonstrated pleural abnormality. There is borderline cardiomegaly. Normal mediastinum and tracy. Normal visualized pulmonary arteries. There is atherosclerotic calcification of the aortic arch with tortuosity. There is demineralization of the osseous structures. Normal visualized ribs, clavicles, and shoulders. There is no demonstrated abnormality of the visualized soft tissue structures of the upper abdomen. RAD/Chest 1 View (Portable) IMPRESSION: No radiographic evidence of acute cardiopulmonary disease. Electronically Signed: Savi Wright MD at 17:13 EDT , Service support ,
--- NOTE | 2018-06-25 16:45 | ED.VISSUMM ---
- ER Visit Summary Date of Service: 06/25/18 Chief Complaint: Chest pain History of Present Illness: The patient is a 33 F presenting with chest pain. Patient states she has been having intermittent chest pain for the past 2 weeks. She states over the past 3-4 days the pain has been constant. Pain is midsternal. She states it is worsened with movement. She has associated nausea and shortness of breath. She has had similar symptoms in the past. She has history of hypertension, hypercholesterolemia. She has history of Turners syndrome and bicuspid aortic valve. She denies PE/DVT risk factors. Physical Examination: Vitals are stable. Patient is afebrile. Alert no acute distress. HEENT exam is unremarkable. Neck is supple. Lungs are clear and equal bilaterally. Heart is regular rate and rhythm. Abdomen is soft nontender nondistended. Extremities are unremarkable. Skin is warm and dry. No focal neurologic deficit. Remainder of exam is unremarkable. Emergency Department Course and Treatment: Patient given morphine, Zofran, aspirin. EKG is sinus rhythm rate of 90 with no acute ischemic changes. Chest x-ray shows no acute process. CBC, chemistries unremarkable other than glucose 165. D-dimer negative. Troponin negative. On reevaluation, patient is resting comfortably. She is advised to follow-up with her primary care physician. Advised return to ED if worsening complaints. Disposition: Discharge home Impression: Atypical chest pain This note was generated with [employer] dictation software. It may contain incorrect words, spelling, and punctuation that were not noted in review of the chart prior to signing ED Disposition - Plan for ED Patient: Instructions: ED Chest Pain Atypical Unkn Cause Referrals: Yina Brock MD [Primary Care Provider] -
[2018-06-25] MEDS: Aspirin 81 MG TAB.CHEW 324 MG PO (16:52)
[2018-06-25] MEDS: Ondansetron 4 MG/2 ML Vial IV (16:53)
[2018-06-25] MEDS: Morphine 4 MG/ML Syringe IV (16:53)
[2018-06-25 17:01] VITALS: O2SAT 96
[2018-06-25 17:27] LABS: Absolute Lymphocyte Count 1.77 X10^3/ul (0.83-4.51); Absolute Neutrophil Count 5.1 X10^3/uL (2.0-7.7); Basophil# 0.03 X10^3/uL; Basophil% 0.4 % (0-1); Eosinophil# 0.13 X10^3/uL; Eosinophils% 1.7 % (0-5); Hematocrit 39.6 % (37-47); Hemoglobin 13.1 g/dl (12.0-15.0); Lymphocyte # 1.77 X10^3/ul (4.0); Lymphocyte % 23.3 % (19-41); Mean Corp Hgb Conc 33.1 g/gl (32-36); Mean Corpuscular Hgb 27.9 pg (27.0-32.0); Mean Corpuscular Volume 84.3 fL (81-99); Monocyte% 6.6 % (0-10); Neutrophil # 5.12 X10^3/uL (2.7-7.7); Neutrophil % 67.5 % (47-70); Platelet Count 241 K/mm3 (150-450); RBC Distribution Width CV 13.6 % (11.6-14.6); RBC Distribution Width SD 41.8 fl (35.1-43.9); White Blood Count 7.6 K/mm3 (4.4-11.0)
[2018-06-25 17:31] LABS: POSITIVE COUNT NO; POSITIVE DIFFERENTIAL NO; POSITIVE MORPHOLOGY NO
[2018-06-25 17:39] LABS: Anion Gap 6 (5-15); BUN 11 mg/dL (7-18); Chloride 107 mmol/L (98-107); Creatinine, Serum 0.61 mg/dL (0.55-1.02); EST Glomerular Filtration Rate 119 mL/min (>60); Est Glom Filt Rate - Afr Amer 144 mL/min (>60); Estimated Creatinine Clearance 209.04 ml/min; Glucose 165 mg/dL (74-106); Potassium 3.6 mmol/L (3.5-5.1); Sodium Level 139 mmol/L (136-145)
[2018-06-25 17:48] LABS: D-Dimer Quantitative (DVT/PE) < 0.27 FEU/ug/m (0.27-0.49)
--- NOTE | 2018-06-25 18:06 | ED.DEP ---
ED Disposition - Plan for ED Patient: Instructions: ED Chest Pain Atypical Unkn Cause Referrals: Yina Brock MD [Primary Care Provider] -
[2018-06-25 18:16] VITALS: BP 115/78; PULSE 73; RESP 20; O2SAT 96
[2018-06-25 19:01] VITALS: BP 98/71; PULSE 90; RESP 26; O2SAT 96
== END 2018-06-25 19:01 | disposition home or self-care (01) ==
LOC: ED 17:07
PROVIDERS: Emergency Provider Emergency Medicine; Family Provider Internal Medicine; PCP Internal Medicine
DX: R07.89 Other chest pain (principal); R11.0 Nausea; R06.00 Dyspnea, unspecified; I10 Essential (primary) hypertension; E78.00 Pure hypercholesterolemia, unspecified; Q96.9 Turner's syndrome, unspecified; Q23.1 Congenital insufficiency of aortic valve
CPT/HCPCS: 71045; 80048; 84484; 85025; 85379; 93005; 96374; 96375; 99285; J2405

== ENCOUNTER 2018-06-28 00:49 | Emergency (ER) | payer MEDICAID, SELFPAY ==
[2018-06-28 00:50] VITALS: BP 159/109; PULSE 89; RESP 24; TEMP 36.7; O2SAT 99; BMI 44.9
[2018-06-28 00:59] VITALS: O2SAT 99
--- NOTE | 2018-06-28 01:11 | EKG12_ITS ---
Test Reason : CP Blood Pressure : / mmHG Vent. Rate : 083 BPM Atrial Rate : 083 BPM P-R Int : 164 ms QRS Dur : 084 ms QT Int : 390 ms P-R-T Axes : -04 -16 004 degrees QTc Int : 458 ms Normal sinus rhythm Moderate voltage criteria for LVH, may be normal variant Poor R-Wave Progression Borderline ECG Confirmed by EUFEMIA HESS, DAVID ([id number]), medical transcription editor SHREYA VASQUEZ ([id number]) on 07/02/2018 10:19:27 AM Referred By: STEVEN Confirmed By:DAVID FALL MD
--- NOTE | 2018-06-28 01:15 | RAD_ITS ---
STUDY: X-RAY CHEST REASON FOR EXAM: Female, 33 years old. Chest tightness. TECHNIQUE: AP portable chest. COMPARISON: June 25, 2018. FINDINGS: The lungs are clear and expanded. There is no demonstrated pleural abnormality. Normal size heart. Normal mediastinum and tracy. Normal visualized pulmonary arteries. Normal visualized aortic arch and descending thoracic aorta. Normal visualized thoracic spine. Normal visualized ribs, clavicles, and shoulders. There is no demonstrated abnormality of the visualized soft tissue structures of the upper abdomen. RAD/Chest 1 View (Portable) IMPRESSION: No acute cardiopulmonary disease. Electronically Signed: Pool Phillips MD at 1:30 EDT , Service support ,
[2018-06-28] MEDS: 0.9% Normal Saline 1,000 ML 150 ML IV (01:34)
[2018-06-28] MEDS: Penicillin Vk 250 MG Tablet 500 MG PO (01:34)
[2018-06-28] MEDS: Ondansetron 4 MG/2 ML Vial IV (01:34)
[2018-06-28 01:35] LABS: Absolute Lymphocyte Count 1.58 X10^3/ul (0.83-4.51); Absolute Neutrophil Count 5.2 X10^3/uL (2.0-7.7); Basophil# 0.02 X10^3/uL; Basophil% 0.3 % (0-1); Eosinophil# 0.14 X10^3/uL; Eosinophils% 1.9 % (0-5); Hemoglobin 13.4 g/dl (12.0-15.0); Lymphocyte # 1.58 X10^3/ul (4.0); Lymphocyte % 21.1 % (19-41); Mean Corp Hgb Conc 34.4 g/gl (32-36); Mean Corpuscular Hgb 27.9 pg (27.0-32.0); Mean Corpuscular Volume 81.3 fL (81-99); Mean Platelet Vol. 9.8 fl (6.2-12.0); Monocyte# 0.55 X10^3/uL; Monocyte% 7.4 % (0-10); Neutrophil # 5.16 X10^3/uL (2.7-7.7); Neutrophil % 68.9 % (47-70); Platelet Count 257 K/mm3 (150-450); RBC Distribution Width CV 13.7 % (11.6-14.6); RBC Distribution Width SD 39.6 fl (35.1-43.9); White Blood Count 7.5 K/mm3 (4.4-11.0)
[2018-06-28] MEDS: Morphine 4 MG/ML Syringe IV ×2 (01:35→02:16)
[2018-06-28 01:39] LABS: POSITIVE COUNT NO; POSITIVE DIFFERENTIAL NO; POSITIVE MORPHOLOGY NO
[2018-06-28 01:50] LABS: Anion Gap 8 (5-15); BUN 12 mg/dL (7-18); BUN/Creat Ratio 16.9 RATIO (10-20); Calcium,Total 9.3 mg/dL (8.5-10.1); Chloride 109 mmol/L (98-107); Creatinine, Serum 0.71 mg/dL (0.55-1.02); EST Glomerular Filtration Rate 100 mL/min (>60); Est Glom Filt Rate - Afr Amer 121 mL/min (>60); Estimated Creatinine Clearance 171.88 ml/min; Glucose 218 mg/dL (74-106); Potassium 3.5 mmol/L (3.5-5.1); Sodium Level 141 mmol/L (136-145)
--- NOTE | 2018-06-28 02:16 | ED.DCSUM_ITS ---
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 Patient reports several day history of chest tightness. She was seen in the ER for the same on the . Blood work was normal at that time but states pain has persisted. Patient states the main reason for her visit tonight is right-sided dental pain that is gotten worse over the past couple of days. She has not been able to sleep at night secondary to pain. Is been trying Anbesol along with Tylenol and ibuprofen. Physical Examination: [] Blood pressure is 159/109, otherwise vitals normal. Patient sitting upright in bed. She appears uncomfortable but in no distress. Head neck examination was no facial edema or erythema. She has multiple right- sided teeth that are decayed to the gumline on both the maxillary and mandibular surface. Posterior pharynx exam is normal. There is no trismus. Heart is regular rate and rhythm. Lung sounds are clear. Abdomen is soft and nontender. Test Results: [] EKG is sinus 83 with no sign of acute ischemia. Portable chest x-ray shows no acute disease. CBC is normal. Chemistry studies significant only for glucose of 218. Troponin is less than 0.015. Emergency Department Course and Treatment: [] Patient was given morphine, Zofran, and IV fluids. She was given an oral dose of Pen-Vee K. On repeat examination patient states she does have mild improvement in her dental pain. She states that she got sharp pain in the epigastrium that went through to her back. At that time LFTs and lipase were added. These values returned unremarkable. On repeat examination patient is resting comfortably. She has made phone calls to several dentist and is awaiting return calls for close follow-up. She will be given a prescription for Pen-Vee K and a few [place] for breakthrough pain. Treatment Plan: [] Disposition: [] Discharge Impression: [] 1. Atypical chest pain 2. Odontalgia This note was generated with [employer] software. It may contain incorrect words, spelling, and punctuation that were not noted in review of the chart prior to signing ED Disposition - Plan for ED Patient: Referrals: Yina Brock MD [Primary Care Provider] -
[2018-06-28 02:27] LABS: Lipase 106 U/L (73-393)
[2018-06-28 02:30] LABS: AST(SGOT) 35 U/L (15-37); Alanine Aminotransfer ALT/SGPT 69 U/L (13-56); Albumin, Serum 3.9 g/dL (3.2-5.0); Alkaline Phosphatase 106 U/L (45-117); Bilirubin, Direct 0.17 mg/dL (0.00-0.30); Globulin 3.7 g/dL (2.2-4.2); Protein, Total 7.6 g/dL (6.4-8.2)
--- NOTE | 2018-06-28 02:45 | DCINST.ED_ITS ---
ED Disposition - Plan for ED Patient: Disposition: Home or Assisted Living Instructions: ED Tooth Pain, ED Chest Pain Atypical Unkn Cause Prescriptions: Hydrocodone Bitart/Apap 5-325 [[place] 5MG-325MG] 1 tablet PO Q6H PRN PRN 3 Days #10 tablet PRN Reason: Pain Penicillin V Potassium 500 mg PO 4X/DAY #40 tablet Referrals: Yina Brock MD [Primary Care Provider] - 1 Week
[2018-06-28 02:51] VITALS: BP 140/92; PULSE 69; RESP 16; O2SAT 99
== END 2018-06-28 02:52 | disposition home or self-care (01) ==
PROVIDERS: Emergency Provider Emergency Medicine; Family Provider Internal Medicine; PCP Internal Medicine
DX: K08.89 Other specified disorders of teeth and supporting structures (principal); R07.89 Other chest pain; K02.9 Dental caries, unspecified; Q96.9 Turner's syndrome, unspecified; Q23.1 Congenital insufficiency of aortic valve; Q25.1 Coarctation of aorta; E78.00 Pure hypercholesterolemia, unspecified; E03.9 Hypothyroidism, unspecified; Z87.19 Personal history of other diseases of the digestive system; Z79.82 Long term (current) use of aspirin; Z79.899 Other long term (current) drug therapy
CPT/HCPCS: 71045; 80048; 80076; 83690; 84484; 85025; 93005; 96361; 96374; 96375; 99285; J7030; J2405

== ENCOUNTER 2018-07-02 17:28 | Emergency (ER) | payer MEDICAID, SELFPAY ==
[2018-07-02 17:29] VITALS: BP 139/95; PULSE 84; RESP 16; TEMP 36.6; O2SAT 99; BMI 44.9
--- NOTE | 2018-07-02 18:01 | ED.VIS.DENTA ---
History of Present Illness Chief Complaint: Dental Informant: Patient Onset: Weeks Context: Sudden Onset Timing: Continuous Quality: Pain right jaw Location: Right lower molar Current Severity: Severe Maximum Severity: Severe Worsened by: Cold liquids and air Relieved by: - - Nothing alleviates her discomfort Associated Symptoms: Jaw Swelling, Cold Narrative: Patient was seen last Monday and prescribed penicillin, [place] and anti-inflammatory. She presents because of persistent pain. She has not been able to see a dentist. She states the pain has not improved. She denies fever, chills night sweats. Denies difficulty opening or closing her mouth completely. She has no history rheumatic fever, murmur, SPE or being immune suppressed. She does report allergy to doxycycline. 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 (2) Hypothyroidism Status: Chronic (3) Marcus syndrome Status: Chronic Past Medical History - Allergies and Home Meds Allergies/Adverse Reactions: Allergies doxycycline Adverse Reaction (Verified 06/28/18 00:59) Abd cramps/diarrhea Primary Care Physician: Yina Brock MD [Primary Care Provider] - Prior records reviewed: Yes - Confirmed visit last week Surgical History: appendectomy Lives: Alone Smoking Status: Never smoker Alcohol: None Drugs: None - Family History Maternal Family History: Reports: Diabetes Review of Systems General: Denies: Chills, Fever, Malaise, Subjective, Sweats, Weight loss Eyes: Denies: Visual changes - bilaterally, Blurred Vision - bilaterally, Diplopia ENT: Reports: - - Right lower dental pain. Denies: Bilateral ear pain, Rhinorrhea, Sore throat Cardiovascular: Denies: Chest pain, Palpitations Respiratory: Denies: Dyspnea, Cough, Dyspnea on exertion Gastrointestinal: Denies: Abdominal pain, Nausea, Vomiting, Diarrhea, Melena, Hematochezia Skin: Denies: Rash Allergy: Denies: Uticaria, Swelling of the mouth Physical Exam Vital Signs/Narrative: Vital Signs Temp Pulse Resp BP Pulse Ox 07/02/18 17:29 97.8 F 84 16 139/95 H 99 Inital Vital Signs reviewed: Yes General: Well nourished, Well developed, - - Patient appears uncomfortable. Head: Normocephalic, Atraumatic ENT: Moist mucous membranes, No rhinorrhea, TM's clear Mouth/Throat: Normal oral mucosa, Widespread dental decay, - - What I believe is the first right lower molar is eroded to the gumline. There is soft tissue swelling. There is no fluctuance. There is a palpable mass inferior to the mandible. There is shoddy submandibular lymph nodes. The trachea is midline. There is no stridor with auscultation. There is no trismus.. Negative for: Normal inspection lips/gums, No dental tenderness - They did want to put it in because ongoing for relapse, Trismus Neck: Supple, No lymphadenopathy, Nontender, No JVD Cardiovascular: Regular rate, Regular rhythm, No murmurs Respiratory: No distress, CTA bilaterally, Chest nontender Abdomen: Soft, Nontender, Nondistended, Normal bowel sounds Back: Nontender, Normal Inspection Extremities: Nontender, No edema Skin: Normal color, No rash Neurological: Alert, Oriented x3, Cranial nerves II-XII grossly intact, Normal Strength, Normal Sensation Psychological: Normal affect Diagnostic/Tx/Re-eval - Medical Decision Making Patient failed outpatient therapy with penicillin. Will change to clindamycin. She was instructed to call [facility]. She was informed that they have a walk-in dental clinic on . ED Disposition - Plan for ED Patient: Disposition: Home or Assisted Living Diagnosis: Dental abscess Instructions: ED Abscess Dental Prescriptions: Hydrocodone Bitart/Apap 5-325 [[place] 5MG-325MG] 1 tablet PO Q6H PRN PRN 3 Days #10 tablet PRN Reason: Pain Naproxen [Naprosyn] 500 mg PO BID #14 tablet Clindamycin HCl [Cleocin] 300 mg PO Q6H #40 capsule Referrals: Yina Brock MD [Primary Care Provider] - [facility] [NON-STAFF] - 3-5 Days Additional Instructions: Your prescriptions were electronically transmitted to [facility] [place] your designated pharmacy of choice.
--- NOTE | 2018-07-02 18:06 | ED.DCSUM_ITS ---
History of Present Illness Chief Complaint: Dental Informant: Patient Onset: Weeks Context: Sudden Onset Timing: Continuous Quality: Pain right jaw Location: Right lower molar Current Severity: Severe Maximum Severity: Severe Worsened by: Cold liquids and air Relieved by: - - Nothing alleviates her discomfort Associated Symptoms: Jaw Swelling, Cold Narrative: Patient was seen last Monday and prescribed penicillin, [place] and anti-inflammatory. She presents because of persistent pain. She has not been able to see a dentist. She states the pain has not improved. She denies fever, chills night sweats. Denies difficulty opening or closing her mouth completely. She has no history rheumatic fever, murmur, SPE or being immune suppressed. She does report allergy to doxycycline. 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 (2) Hypothyroidism Status: Chronic (3) Marcus syndrome Status: Chronic Past Medical History - Allergies and Home Meds Allergies/Adverse Reactions: Allergies doxycycline Adverse Reaction (Verified 06/28/18 00:59) Abd cramps/diarrhea Primary Care Physician: Yina Brock MD [Primary Care Provider] - Prior records reviewed: Yes - Confirmed visit last week Surgical History: appendectomy Lives: Alone Smoking Status: Never smoker Alcohol: None Drugs: None - Family History Maternal Family History: Reports: Diabetes Review of Systems General: Denies: Chills, Fever, Malaise, Subjective, Sweats, Weight loss Eyes: Denies: Visual changes - bilaterally, Blurred Vision - bilaterally, Diplopia ENT: Reports: - - Right lower dental pain. Denies: Bilateral ear pain, Rhinorrhea, Sore throat Cardiovascular: Denies: Chest pain, Palpitations Respiratory: Denies: Dyspnea, Cough, Dyspnea on exertion Gastrointestinal: Denies: Abdominal pain, Nausea, Vomiting, Diarrhea, Melena, Hematochezia Skin: Denies: Rash Allergy: Denies: Uticaria, Swelling of the mouth Physical Exam Vital Signs/Narrative: Vital Signs Temp Pulse Resp BP Pulse Ox 07/02/18 17:29 97.8 F 84 16 139/95 H 99 Inital Vital Signs reviewed: Yes General: Well nourished, Well developed, - - Patient appears uncomfortable. Head: Normocephalic, Atraumatic ENT: Moist mucous membranes, No rhinorrhea, TM's clear Mouth/Throat: Normal oral mucosa, Widespread dental decay, - - What I believe is the first right lower molar is eroded to the gumline. There is soft tissue swelling. There is no fluctuance. There is a palpable mass inferior to the mandible. There is shoddy submandibular lymph nodes. The trachea is midline. There is no stridor with auscultation. There is no trismus.. Negative for: Normal inspection lips/gums, No dental tenderness - They did want to put it in because ongoing for relapse, Trismus Neck: Supple, No lymphadenopathy, Nontender, No JVD Cardiovascular: Regular rate, Regular rhythm, No murmurs Respiratory: No distress, CTA bilaterally, Chest nontender Abdomen: Soft, Nontender, Nondistended, Normal bowel sounds Back: Nontender, Normal Inspection Extremities: Nontender, No edema Skin: Normal color, No rash Neurological: Alert, Oriented x3, Cranial nerves II-XII grossly intact, Normal Strength, Normal Sensation Psychological: Normal affect Diagnostic/Tx/Re-eval - Medical Decision Making Patient failed outpatient therapy with penicillin. Will change to clindamycin. She was instructed to call the [facility]. She was informed that they have a walk-in dental clinic on . ED Disposition - Plan for ED Patient: Disposition: Home or Assisted Living Diagnosis: Dental abscess Instructions: ED Abscess Dental Prescriptions: Hydrocodone Bitart/Apap 5-325 [[place] 5MG-325MG] 1 tablet PO Q6H PRN PRN 3 Days #10 tablet PRN Reason: Pain Naproxen [Naprosyn] 500 mg PO BID #14 tablet Clindamycin HCl [Cleocin] 300 mg PO Q6H #40 capsule Referrals: Yina Brock MD [Primary Care Provider] - [facility] [NON-STAFF] - 3-5 Days Additional Instructions: Your prescriptions were electronically transmitted to [facility] [place] your designated pharmacy of choice.
[2018-07-02] MEDS: Naproxen 250 MG Tablet 500 MG PO (18:14)
[2018-07-02] MEDS: Clindamycin HCl 150 MG Capsule 300 MG PO (18:14)
[2018-07-02 18:19] VITALS: PULSE 82; RESP 16; O2SAT 98
== END 2018-07-02 18:21 | disposition home or self-care (01) ==
PROVIDERS: Emergency Provider Emergency Medicine; Family Provider Internal Medicine; PCP Internal Medicine
DX: K04.7 Periapical abscess without sinus (principal); K02.9 Dental caries, unspecified; E03.9 Hypothyroidism, unspecified; Q96.9 Turner's syndrome, unspecified; Z79.82 Long term (current) use of aspirin; Z79.899 Other long term (current) drug therapy
CPT/HCPCS: 99283

== ENCOUNTER 2018-10-01 20:17 | Emergency (ER) | payer MEDICAID, SELFPAY ==
[2018-10-01 20:18] VITALS: BP 126/94; PULSE 120; RESP 18; TEMP 35.5; O2SAT 98; BMI 43.4
[2018-10-01 21:11] VITALS: O2SAT 100
--- NOTE | 2018-10-01 21:34 | CT_ITS ---
HISTORY: AORTIC DILATION, SOB TECHNIQUE: Helically acquired images were obtained of the chest following IV contrast as per pulmonary angiogram protocol with multiplanar reformats. A radiation dose optimization technique was used for this scan. IV Contrast dosage and agent: 100 cc [id number] COMPARISON: CTA chest 03/25/18 FINDINGS: # of images incl. paperwork: 1160 PULMONARY ARTERIES: No central or hilar pulmonary embolus. The lobar more peripheral pulmonary artery branches are not well opacified and emboli in these vessels would likely not be detected on this study. AORTA AND GREAT VESSELS: Mildly ectatic but non-aneurysmal ascending thoracic aorta again demonstrated. Mild decrease in caliber of the aortic arch followed by focal moderate narrowing of the distal thoracic aortic arch, immediately after the origin of the left subclavian artery, unchanged. No enlarged arterial collaterals are evident. HEART AND PERICARDIUM: Heart size normal. No pericardial effusion. No signs of right heart strain. MEDIASTINUM AND ANNE MARIE: No mediastinal or hilar adenopathy. Esophagus unremarkable. No hiatal hernia. OTHER SOFT TISSUES: Chest wall unremarkable. No axillary or supraclavicular adenopathy. LUNGS AND LARGE AIRWAYS, PLEURA: Clear. No pneumothorax. No pleural effusion. BONES: No acute osseous abnormality. UPPER ABDOMEN: No acute findings. CT/CTA Chest W/WO Contrast IMPRESSION: No acute findings. Coarctation of the thoracic aorta with moderate focal narrowing just distal to the origin of left subclavian artery. This is a congenital abnormality that could cause hemodynamic abnormalities and is associated with congenital heart defects. Consider follow-up cardiovascular workup including echocardiogram. Please note lobar and more peripheral pulmonary embolus would likely not be detected on this study. If there is high clinical suspicion for PE consider repeating the study or obtaining VQ scan. Individualized dose optimization techniques were used for this CT. at 2326 Reported and signed by: Mc Oneal MD Electronically Signed: Mc Oneal, at 23:25 EDT Tel , Service support ,
--- NOTE | 2018-10-01 21:34 | EKG12_ITS ---
Test Reason : CP Blood Pressure : / mmHG Vent. Rate : 120 BPM Atrial Rate : 120 BPM P-R Int : 160 ms QRS Dur : 080 ms QT Int : 318 ms P-R-T Axes : 023 066 042 degrees QTc Int : 449 ms Sinus tachycardia Septal infarct , age undetermined Abnormal ECG Confirmed by DAYANARA HESS, ZHEN ([id number]), editorial specialist SHREYA VASQUEZ ([id number]) on 10/03/2018 1:41:53 PM Referred By: MITCHELL/DELIA Confirmed By:ZHEN NICHOLE MD
[2018-10-01] MEDS: Albuterol 2.5 MG/3 ML VIAL.NEB. INHALATION (21:45)
[2018-10-01 21:50] VITALS: O2SAT 100
[2018-10-01 22:02] LABS: Absolute Lymphocyte Count 2.01 X10^3/uL (0.83-4.51); Absolute Neutrophil Count 6.5 X10^3/uL (2.0-7.7); Basophil# 0.04 X10^3/uL; Basophil% 0.4 % (0-1); Eosinophil# 0.12 X10^3/uL; Eosinophils% 1.3 % (0-5); Hematocrit 39.5 % (37-47); Hemoglobin 13.4 g/dL (12.0-15.0); Lymphocyte # 2.01 X10^3/ul (4.0); Lymphocyte % 21.8 % (19-41); Mean Corp Hgb Conc 33.9 g/dL (32-36); Mean Corpuscular Hgb 28.9 pg (27.0-32.0); Mean Corpuscular Volume 85.1 fL (81-99); Monocyte# 0.45 X10^3/uL; Monocyte% 4.9 % (0-10); NRBC Flagged by Analyzer 0 % (0-5); Neutrophil # 6.53 X10^3/uL (2.7-7.7); Neutrophil % 70.6 % (47-70); Platelet Count 241 K/mm3 (150-450); RBC Distribution Width CV 12.7 % (11.6-14.6); RBC Distribution Width SD 38.5 fl (35.1-43.9); Red Blood Count 4.64 M/mm3 (4.2-5.4); White Blood Count 9.2 K/mm3 (4.4-11.0)
[2018-10-01 22:19] LABS: Anion Gap 11 (5-15); BUN 14 mg/dL (7-18); BUN/Creat Ratio 17.9 RATIO (10-20); Calcium,Total 9.5 mg/dL (8.5-10.1); Chloride 106 mmol/L (98-107); Creatinine, Serum 0.78 mg/dL (0.55-1.02); EST Glomerular Filtration Rate 89 mL/min (>60); Est Glom Filt Rate - Afr Amer 108 mL/min (>60); Estimated Creatinine Clearance 156.46 ml/min; Glucose 328 mg/dL (74-106); Potassium 3.7 mmol/L (3.5-5.1); Sodium Level 141 mmol/L (136-145)
[2018-10-01 22:23] VITALS: BP 138/74; PULSE 118; RESP 17; O2SAT 100
--- NOTE | 2018-10-01 23:46 | ED.VISSUMM ---
- ER Visit Summary Date of Service: 10/01/18 Chief Complaint: Shortness of breath History of Present Illness: The patient is a 33 F with shortness of breath for the past 2 days. She has a history of Marcus syndrome. Patient also reports generalized chest pain. She has a history of shortness of breath, asthma, aortic stenosis, aortic dilation, and she is being evaluated for possible coarctation of the aorta versus a hypoplastic syndrome. She denies any other associated symptoms like fever, cough, or sputum. Denies nausea, vomiting, or sweats. Physical Examination: Afebrile and vital signs unremarkable except for a heart rate of 120. Patient is alert and oriented. She appears anxious, but denies anxiety symptoms. Heart tachycardic but regular. Lungs clear. Abdomen soft. Extremities nontender. Skin appears normal. Test Results: EKG shows sinus rhythm at a rate of 120. No sign of acute ischemia or infarction pattern. CT chest shows nothing acute. She does have findings consistent with coarctation of the aorta. No definite large PE visualized. CBC, BMP, troponin unremarkable except glucose is 328. Emergency Department Course and Treatment: Patient was treated with a breathing treatment while awaiting results. She was placed on a monitor. Work-up, as above was all fairly unremarkable. I do not believe she has a PE, and so no further evaluation was pursued. It appears that her aortic abnormalities are known to her, and I believe she is appropriate for outpatient follow-up. The rest of her work-up was unremarkable. On reevaluation, patient is resting comfortably, sleeping. Patient will be discharged to follow-up with her doctor. Return for any new or worsening issues. Treatment Plan: As above Disposition: Discharged Impression: 1. Dyspnea 2. Coarctation of the aorta This note was generated with Digital Allyation software. It may contain incorrect words, spelling, and punctuation that were not noted in review of the chart prior to signing ED Disposition - Plan for ED Patient: Referrals: Yina Brock MD [Primary Care Provider] -
--- NOTE | 2018-10-01 23:49 | ED.DEP ---
ED Disposition - Plan for ED Patient: Instructions: ED Dyspnea Referrals: Yina Brock MD [Primary Care Provider] - Additional Instructions: follow up with your heart doctor
[2018-10-02 00:06] VITALS: BP 133/99; PULSE 99; RESP 18; O2SAT 96
== END 2018-10-02 00:06 | disposition home or self-care (01) ==
LOC: ED 22:11
PROVIDERS: Emergency Provider Emergency Medicine; Family Provider Internal Medicine; PCP Internal Medicine
DX: R06.00 Dyspnea, unspecified (principal); Q25.1 Coarctation of aorta; R07.9 Chest pain, unspecified; Q96.9 Turner's syndrome, unspecified; J45.909 Unspecified asthma, uncomplicated; I35.0 Nonrheumatic aortic (valve) stenosis; I77.819 Aortic ectasia, unspecified site; E03.9 Hypothyroidism, unspecified; Z79.82 Long term (current) use of aspirin; Z79.899 Other long term (current) drug therapy
CPT/HCPCS: 71275; 80048; 84484; 85025; 93005; 99285; Q9967; A4216

== ENCOUNTER 2018-10-31 17:44 | Emergency (ER) | payer SELFPAY ==
[2018-10-31 17:45] VITALS: BP 129/90; PULSE 101; RESP 17; TEMP 36.6; O2SAT 98; BMI 43.4
--- NOTE | 2018-10-31 17:59 | RAD_ITS ---
STUDY: X-RAY CHEST REASON FOR EXAM: Female, 33 years old. Shortness of breath TECHNIQUE: Frontal and lateral views of the chest. COMPARISON: 06/28/2018. FINDINGS: The lungs are clear and expanded. There is no demonstrated pleural abnormality. Normal size heart. Normal mediastinum and tracy. Normal visualized pulmonary arteries. There is atherosclerotic tortuosity of the aortic arch and descending thoracic aorta. Normal visualized thoracic spine. Normal visualized ribs, clavicles, and shoulders. There is no demonstrated abnormality of the visualized soft tissue structures of the upper abdomen. RAD/Chest PA and Lateral IMPRESSION: No acute chest disease. Electronically Signed: Adarsh Cesar MD at 18:44 EDT , Service support ,
--- NOTE | 2018-10-31 17:59 | EKG12_ITS ---
Test Reason : GENERAL ILLNESS Blood Pressure : / mmHG Vent. Rate : 082 BPM Atrial Rate : 082 BPM P-R Int : 168 ms QRS Dur : 086 ms QT Int : 402 ms P-R-T Axes : -01 -17 008 degrees QTc Int : 469 ms Normal sinus rhythm Moderate voltage criteria for LVH, may be normal variant Cannot rule out Septal infarct (cited on or before 01-OCT-2018) Abnormal ECG Confirmed by KING ROMERO ([id number]), editor greeting card DOMINIQUE CANSECO ([id number]) on 11/05/2018 2:01:45 PM Referred By: JAKOB Confirmed By:KING ROMERO
--- NOTE | 2018-10-31 18:01 | ED.DCSUM_ITS ---
- ER Visit Summary Date of Service: 10/31/18 Chief Complaint: Right calf discomfort and shortness of breath History of Present Illness: The patient is a 33 F history of aortic stenosis with bicuspid valve, diet-controlled diabetes and hypertension and cholesterol. Patient states that she has had burning discomfort in her right calf. But she is never had a DVT or PE. No recent travel, surgery or immobilization. No recent hospitalization. No hemoptysis. Physical Examination: Young female no acute distress. Vital signs are stable. She is afebrile. Her pulse ox is 90% room air no signs of hypoxia. HEENT exam unremarkable. Neck nontender. Lungs clear to auscultation bilaterally. Heart regular rhythm no murmur rate about 95. Abdomen soft nontender normal bowel sounds no peritoneal signs. Mild obesity. Extremities moves all 4. Calves nontender without edema or cords. Neurologically she is awake and alert with no focal motor deficits. Test Results: White count 7. Hemoglobin 12. BMP normal normal gap and creatinine. EKG sinus rhythm rate 82 no acute abnormality. No ischemia. Chest x-ray 2 view shows no acute abnormality read both by myself and the radiologist. Ultrasound right lower extremity venous duplex study shows no clot. As read by the tech and reported to me. Emergency Department Course and Treatment: Repeat exam patient is doing well at 2020 p.m. She is comfortable being discharged home. Treatment Plan: Follow-up with your primary care physician as needed. Disposition: Discharge Impression: Right Calf pain of uncertain etiology Dyspnea of uncertain etiology This note was generated with Spring.me dictation software. It may contain incorrect words, spelling, and punctuation that were not noted in review of the chart prior to signing ED Disposition - Plan for ED Patient: Referrals: Yina Brock MD [Primary Care Provider] -
--- NOTE | 2018-10-31 18:04 | US_ITS ---
HISTORY:RT CALF PAIN TODAY US Venous Duplex LE Unilat / Limited # of images including paperwork:18 Comparison: none Technique: Color flow and Doppler analysis of theRight lower extremity Findings: There is satisfactory visualization of the Right common femoral,l femoral, popliteal, and posterior tibial veins. The veins compress satisfactorily and there is satisfactory pulsatility and augmentation noted. US/Venous Duplex Imag/Limited/Uni IMPRESSION: No evidence of deep venous thrombosis in theRight lower extremity at 1907 Reported and signed by: Willa Kang DO Electronically Signed: Willa Kang DO at 19:06 EDT Tel , Service support ,
[2018-10-31 18:30] LABS: Absolute Lymphocyte Count 1.68 X10^3/uL (0.83-4.51); Absolute Neutrophil Count 4.8 X10^3/uL (2.0-7.7); Basophil# 0.05 X10^3/uL; Basophil% 0.7 % (0-1); Eosinophil# 0.14 X10^3/uL; Eosinophils% 1.9 % (0-5); Hematocrit 38.8 % (37-47); Hemoglobin 12.7 g/dL (12.0-15.0); Lymphocyte # 1.68 X10^3/ul (4.0); Lymphocyte % 23.3 % (19-41); Mean Corp Hgb Conc 32.7 g/dL (32-36); Mean Corpuscular Hgb 27.9 pg (27.0-32.0); Mean Corpuscular Volume 85.3 fL (81-99); Mean Platelet Vol. 9.9 fl (6.2-12.0); Monocyte# 0.48 X10^3/uL; Monocyte% 6.7 % (0-10); NRBC Flagged by Analyzer 0 % (0-5); Neutrophil # 4.79 X10^3/uL (2.7-7.7); Neutrophil % 66.6 % (47-70); Platelet Count 259 K/mm3 (150-450); RBC Distribution Width CV 12.6 % (11.6-14.6); RBC Distribution Width SD 38.7 fl (35.1-43.9); Red Blood Count 4.55 M/mm3 (4.2-5.4); White Blood Count 7.2 K/mm3 (4.4-11.0)
[2018-10-31 18:45] LABS: Anion Gap 6 (5-15); BUN 9 mg/dL (7-18); BUN/Creat Ratio 13.8 RATIO (10-20); Calcium,Total 9.4 mg/dL (8.5-10.1); Chloride 107 mmol/L (98-107); Creatinine, Serum 0.65 mg/dL (0.55-1.02); EST Glomerular Filtration Rate 110 mL/min (>60); Est Glom Filt Rate - Afr Amer 133 mL/min (>60); Estimated Creatinine Clearance 187.75 ml/min; Glucose 140 mg/dL (74-106); Potassium 3.8 mmol/L (3.5-5.1); Sodium Level 140 mmol/L (136-145)
[2018-10-31 20:12] VITALS: BP 110/88; PULSE 100; RESP 18; O2SAT 98
--- NOTE | 2018-10-31 20:24 | ED.DEP ---
ED Disposition - Plan for ED Patient: Disposition: Home or Assisted Living Referrals: Yina Brock MD [Primary Care Provider] - 3-5 Days if not improving Additional Instructions: All your tests, lab work, EKG and chest x-ray were normal. The ultrasound of your leg showed no blood clot. Follow-up with your doctor if not improving.
[2018-10-31 20:34] VITALS: BP 117/66; PULSE 95; RESP 18; O2SAT 97
== END 2018-10-31 20:35 | disposition home or self-care (01) ==
PROVIDERS: Emergency Provider Emergency Medicine; Family Provider Internal Medicine; PCP Internal Medicine
DX: M79.661 Pain in right lower leg (principal); R06.00 Dyspnea, unspecified; Q23.1 Congenital insufficiency of aortic valve; E11.9 Type 2 diabetes mellitus without complications; I10 Essential (primary) hypertension; E78.00 Pure hypercholesterolemia, unspecified; Z79.82 Long term (current) use of aspirin; Z79.899 Other long term (current) drug therapy
CPT/HCPCS: 71046; 80048; 85025; 93005; 93971; 99284

== ENCOUNTER 2019-01-05 21:06 | Emergency (ER) | payer OTHER, SELFPAY ==
[2019-01-05 21:07] VITALS: BP 123/84; PULSE 116; RESP 15; TEMP 36.6; O2SAT 100; BMI 44.4
--- NOTE | 2019-01-05 21:43 | CT_ITS ---
STUDY: CT BRAIN WITHOUT CONTRAST REASON FOR EXAM: Female, 33 years old. Right-sided weakness. RADIATION DOSAGE (If Supplied By Facility): CTDIvol = ( 44.99 ) mGy, DLP = ( 846.73 ) mGycm TECHNIQUE: Transaxial CT imaging of the brain was performed without administration of intravenous contrast material. Individualized dose optimization techniques were used for this CT. COMPARISON: 03/25/2018 FINDINGS: Normal soft tissue structures. Normal calvarium. Normal size ventricles and extra-axial spaces for the patient's age. Normal white matter tracts of the cerebral hemispheres. There is a stable 1.4 cm low density structure in the right base of the brain, axial image 20 and coronal image 47. This was also present previously. It is most likely a prominent Virchow-Chi space. It could also be a neuroepithelial cyst or an old lacunar infarct, unusual in a patient of this age. Otherwise normal basal ganglia and thalami. Normal brainstem. Normal cerebellum. There is no intracranial hemorrhage. There are no findings of an acute ischemic infarction. Normal visualized paranasal sinuses. CT/Brain/Head without Contrast IMPRESSION: No change and no acute abnormalities. Please see comments above. Electronically Signed: Adarsh Cesar MD at 22:43 EDT , Service support ,
--- NOTE | 2019-01-05 21:45 | EKG12_ITS ---
Test Reason : CP Blood Pressure : / mmHG Vent. Rate : 095 BPM Atrial Rate : 095 BPM P-R Int : 168 ms QRS Dur : 082 ms QT Int : 380 ms P-R-T Axes : -03 004 033 degrees QTc Int : 477 ms Normal sinus rhythm Normal ECG Confirmed by DAYANARA HESS, ZHEN ([id number]), assistant film editor SHREYA VASQUEZ ([id number]) on 01/08/2019 11:24:43 AM Referred By: JAKOB Confirmed By:ZHEN NICHOLE MD
[2019-01-05 22:03] LABS: Absolute Lymphocyte Count 1.85 X10^3/uL (0.83-4.51); Absolute Neutrophil Count 5.5 X10^3/uL (2.0-7.7); Basophil# 0.06 X10^3/uL; Basophil% 0.7 % (0-1); Eosinophil# 0.13 X10^3/uL; Eosinophils% 1.6 % (0-5); Hematocrit 40.9 % (37-47); Hemoglobin 13.6 g/dL (12.0-15.0); Lymphocyte # 1.85 X10^3/ul (4.0); Lymphocyte % 22.7 % (19-41); Mean Corp Hgb Conc 33.3 g/dL (32-36); Mean Corpuscular Hgb 28.2 pg (27.0-32.0); Mean Corpuscular Volume 84.9 fL (81-99); Mean Platelet Vol. 9.7 fl (6.2-12.0); Monocyte# 0.56 X10^3/uL; Monocyte% 6.9 % (0-10); NRBC Flagged by Analyzer 0 % (0-5); Neutrophil # 5.45 X10^3/uL (2.7-7.7); Platelet Count 244 K/mm3 (150-450); RBC Distribution Width CV 13.2 % (11.6-14.6); RBC Distribution Width SD 41.1 fl (35.1-43.9); Red Blood Count 4.82 M/mm3 (4.2-5.4); White Blood Count 8.1 K/mm3 (4.4-11.0)
[2019-01-05 22:08] LABS: Mucous, Urine 0 SEEN /hpf (<or=2+)
[2019-01-05 22:10] LABS: Color, Urine Yellow (Yellow); Glucose, Dipstick Normal (Normal); Ketone-Dipstick Negative (Negative); Leukocyte Esterase-Dipstick 100 /ul (Negative); Nitrite-Dipstick Negative (Negative); Occult Blood-Urine 10 /ul (Negative); Protein-Dipstick Negative (Negative); Urine Bilirubin Dipstick Negative (Negative); Urine Clarity Sl. Cloudy (Clear); Urine Urobilinogen Normal (Normal)
[2019-01-05 22:12] LABS: Internal QC Validated? YES +Cl - CLEAR BKGD; Pregnancy, Urine Negative Negative
[2019-01-05 22:13] VITALS: BP 118/78; PULSE 89; RESP 25; O2SAT 100
--- NOTE | 2019-01-05 22:13 | ED.VIS.GEN ---
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 Patient states for the past few days she has had shortness of breath especially with activity. She states that afternoon she had sharp episode of chest pain lasting for about a minute in her chest. It did not radiate. She states since then she has had a tightness in her chest. Last night she noticed that she had some [id number] and numb sensation in her right arm but denies any weakness this is persisted today but that she also developed the same sensation in her right leg. Patient states that she had a cardiac catheterization on Monday for to be evaluated for pulmonary hypertension. She did have a stents placed and is not aware of any history of coronary artery disease. This was done at the [facility]. Patient denies any swelling of her extremities. She denies any history of pulmonary lungs were DVT. She denies any nausea, sweating, abdominal pain or urinary symptoms. She denies any change in her speech, strength or coordination. She denies any other complaints at this time. Past Medical History - Allergies and Home Meds Allergies/Adverse Reactions: Allergies doxycycline Adverse Reaction (Verified 01/05/19 21:11) Abd cramps/diarrhea Primary Care Physician: Yina Brock MD [Primary Care Provider] - Prior records reviewed: Yes Past Medical History: - - Asthma, Marcus syndrome, hypothyroid, congenital bicuspid aortic valve, pseudocoarctation of the aorta Surgical History: appendectomy, - - Catheterization-cardiac Smoking Status: Never smoker - Family History Maternal Family History: Reports: Diabetes Review of Systems All systems negative except as indicated Cardiovascular: Reports: Chest pain Respiratory: Reports: Dyspnea, Cough Neurological: Reports: Parasthesia - Right-sided Physical Exam Vital Signs/Narrative: Vital Signs Temp Pulse Resp BP Pulse Ox 01/05/19 21:07 97.9 F 116 H 15 123/84 H 100 Inital Vital Signs reviewed: Yes General: Well nourished, Well developed, Obese, No Acute Distress Head: Normocephalic, Atraumatic Eyes: Perrl, EOMI ENT: Moist mucous membranes, No rhinorrhea Neck: Supple, Nontender Cardiovascular: Regular rhythm, No murmurs, Tachycardia Respiratory: No distress, Chest nontender, Wheezing - Slight and expiratory wheezing at the bases Abdomen: Soft, Nontender, Nondistended, Normal bowel sounds Back: Nontender, Normal Inspection Extremities: Nontender, No edema Skin: Normal color, No rash Neurological: Alert, Oriented x3, Cranial nerves II-XII grossly intact, Normal Strength, Parasthesia - Subjective paresthesias of the entire right side, - - Slight asymmetry in the face when talking but facial muscles are intact bilaterally. Negative for: Weakness, Left side facial droop, Right side facial droop Psychological: Normal affect, Normal Mood Diagnostic/Tx/Re-eval Chest X-Ray - ED: 2 View, Read by Radiologist, - - Increased right soft tissue density?recommend CT with IV Clinical Impression(s) from Imaging Studies Brain CT 01/05/19 21:43 IMPRESSION: No change and no acute abnormalities. Please see comments above. Electronically Signed: Adarsh Cesar MD at 22:43 EDT , Service support , Chest X-Ray 01/05/19 22:28 IMPRESSION: Increased soft tissue density over the right mediastinum. Mass or adenopathy not excluded. CT with contrast is recommended. Electronically Signed: Adarsh Cesar MD at 22:53 EDT , Service support , Laboratory Data 01/05/19 01/05/19 01/05/19 21:55 21:55 21:55 WBC 8.1 RBC 4.82 Hgb 13.6 Hct 40.9 MCV 84.9 MCH 28.2 MCHC 33.3 RDW Std Deviation 41.1 RDW Coeff of Abdirahman 13.2 Plt Count 244 MPV 9.7 Immature Gran % (Auto) 1.100 H Neut % (Auto) 67.0 Lymph % (Auto) 22.7 [place] % (Auto) 6.9 Eos % (Auto) 1.6 Baso % (Auto) 0.7 Absolute Neuts (auto) 5.5 Absolute Lymphs (auto) 1.85 Nucleated RBC % 0 D-Dimer Quant (PE/DVT) < 0.27 L Sodium 139 Potassium 3.7 Chloride 106 Carbon Dioxide 27.0 Anion Gap 6 BUN 12 Creatinine 0.67 Estim Creat Clear Calc 186.38 Est GFR (MDRD) Af Amer 129 Est GFR (MDRD) Non-Af 106 BUN/Creatinine Ratio 17.9 Glucose 202 H Calcium 9.3 Troponin I < 0.015 Urine Color Urine Clarity Urine pH Ur Specific [place] Urine Protein Urine Glucose (UA) Urine Ketones Urine Occult Blood Urine Nitrite Urine Bilirubin Urine Urobilinogen Ur Leukocyte Esterase Urine RBC Urine WBC Ur Squamous Epith Cells Urine Bacteria Urine Mucus Urine Test 01/05/19 01/05/19 22:00 22:00 WBC RBC Hgb Hct MCV MCH MCHC RDW Std Deviation RDW Coeff of Abdirahman Plt Count MPV Immature Gran % (Auto) Neut % (Auto) Lymph % (Auto) [place] % (Auto) Eos % (Auto) Baso % (Auto) Absolute Neuts (auto) Absolute Lymphs (auto) Nucleated RBC % D-Dimer Quant (PE/DVT) Sodium Potassium Chloride Carbon Dioxide Anion Gap BUN Creatinine Estim Creat Clear Calc Est GFR (MDRD) Af Amer Est GFR (MDRD) Non-Af BUN/Creatinine Ratio Glucose Calcium Troponin I Urine Color Yellow Urine Clarity Sl. Cloudy Urine pH 6.0 Ur Specific [place] 1.010 Urine Protein Negative Urine Glucose (UA) Normal Urine Ketones Negative Urine Occult Blood 10 H Urine Nitrite Negative Urine Bilirubin Negative Urine Urobilinogen Normal Ur Leukocyte Esterase 100 H Urine RBC 0-5 SEEN Urine WBC 0-5 SEEN Ur Squamous Epith Cells 0-5 SEEN Urine Bacteria RARE Urine Mucus 0 SEEN Urine Test Negative Chest CTA 01/05/19 22:57 IMPRESSION: No CTA demonstrated pulmonary embolism or arterial dissection. Electronically Signed: Savi Wright MD at 0:27 EDT , Service support , - Rhythm Strip Rhythm Strip: Sinus Rhythm Rate: 95 Ectopy: None - EKG Initial EKG Interpretation: Sinus Rhythm, - - Sinus rhythm at a rate of 95 Normal intervals Normal axis Normal ST segments - Medical Decision Making Patient is evaluated for multiple complaints including chest pain, shortness of breath and right-sided paresthesias. Patient is an NIH of 1. Her symptoms started yesterday so she is not a TPA candidate. Patient's troponin, d-dimer and other work-up is largely negative. EKG does not show any acute abnormalities. CT the brain does show an incidental finding but no acute process. Do not think it is related to her symptoms today. Patient did have a recent cardiac catheterization 6 days ago which does slightly increase her risk of stroke. I do think patient would benefit from further admission and evaluation for her paresthesias. As is the weekend and we do not have access for inpatient MRI or neurologic evaluation patient be transferred to receive more expedient neurologic evaluation. Patient is agreeable to this plan. Patient be transferred to [facility] because of her insurance. Patient is given a dose of aspirin in the emergency room. She is hemodynamically stable. ED Disposition - Plan for ED Patient: Disposition: [facility] Diagnosis: Paresthesia of right upper and lower extremity, Right facial numbness, Chest pain, Shortness of breath Referrals: Yina Brock MD [Primary Care Provider] -
[2019-01-05 22:16] LABS: D-Dimer Quantitative (DVT/PE) < 0.27 FEU/ug/m (0.27-0.49)
[2019-01-05 22:17] LABS: Bacteria RARE /hpf (None Seen); Red Blood Cells-Urine 0-5 SEEN /hpf (0-5); Squamous Epithelial Cells - UA 0-5 SEEN /hpf (5-10); White Blood Cells 0-5 SEEN /hpf (0-5)
[2019-01-05 22:21] LABS: Anion Gap 6 (5-15); BUN 12 mg/dL (7-18); BUN/Creat Ratio 17.9 RATIO (10-20); Calcium,Total 9.3 mg/dL (8.5-10.1); Chloride 106 mmol/L (98-107); Creatinine, Serum 0.67 mg/dL (0.55-1.02); EST Glomerular Filtration Rate 106 mL/min (>60); Est Glom Filt Rate - Afr Amer 129 mL/min (>60); Estimated Creatinine Clearance 186.38 ml/min; Glucose 202 mg/dL (74-106); Potassium 3.7 mmol/L (3.5-5.1); Sodium Level 139 mmol/L (136-145)
--- NOTE | 2019-01-05 22:28 | RAD_ITS ---
STUDY: X-RAY CHEST REASON FOR EXAM: Female, 33 years old. Short of breath. Chest tightness. TECHNIQUE: Frontal and lateral views of the chest. COMPARISON: 10/31/2018. FINDINGS: Increased soft tissue density seen along the right paratracheal region and in the area of the right hilum, causing displacement of the trachea to the left. CT of the chest with contrast is recommended. Moderate lung volumes. No infiltrates or effusions. Normal size heart. Normal mediastinum and tracy. Normal visualized pulmonary arteries. Normal visualized aortic arch and descending thoracic aorta. Normal visualized thoracic spine. Normal visualized ribs, clavicles, and shoulders. There is no demonstrated abnormality of the visualized soft tissue structures of the upper abdomen. RAD/Chest PA and Lateral IMPRESSION: Increased soft tissue density over the right mediastinum. Mass or adenopathy not excluded. CT with contrast is recommended. Electronically Signed: Adarsh Cesar MD at 22:53 EDT , Service support ,
--- NOTE | 2019-01-05 22:57 | CT_ITS ---
STUDY: CTA CHEST REASON FOR EXAM: Female, 33 years old. Shortness of breath and chest pain. RADIATION DOSAGE (If Supplied By Facility): CTDIvol = ( 16.23 ) mGy, DLP = ( 503.44 ) mGycm TECHNIQUE: The examination was performed with the intravenous administration of 100 mL of Isovue-370. Post-processing of the angiographic images was performed, with multiplanar reformation and 3D reconstruction. Individualized dose optimization techniques were used for this CT. COMPARISON: The CTA of the chest dated October 01, 2018. FINDINGS: Normal enhancement of the main pulmonary artery and right and left pulmonary arteries. Normal enhancement of the bilateral peripheral pulmonary arteries. There is no demonstrated pulmonary embolism. There is atherosclerotic tortuosity of the aortic arch and descending thoracic aorta. Maximum transverse dimension of the ascending thoracic aorta measures approximately 3.8 cm in greatest transverse dimension. There may be a pseudocoarctation of the aortic arch just distal to left subclavian artery. There is no demonstrated aortic dissection. Normal heart and pericardium. Normal mediastinum. Normal hilar regions. Normal visualized trachea and bronchi. The lungs are well expanded. Normal pulmonary parenchyma. Normal pleura. Normal chest wall structures. Normal osseous structures. There may be enlargement of the liver. CT/CTA Chest W/WO Contrast IMPRESSION: No CTA demonstrated pulmonary embolism or arterial dissection. Electronically Signed: Savi Wright MD at 0:27 EDT , Service support ,
[2019-01-06] VITALS: BP 118/76; PULSE 105; RESP 24; O2SAT 99
[2019-01-06] MEDS: Aspirin 325 MG Tablet PO (00:01)
[2019-01-06 01:02] VITALS: PULSE 105; RESP 20
[2019-01-06 01:59] VITALS: BP 139/86; PULSE 100; RESP 21; TEMP 36.9; O2SAT 99
== END 2019-01-06 02:30 | disposition short-term general hospital (02) ==
PROVIDERS: Emergency Provider Emergency Medicine; Family Provider Internal Medicine; PCP Internal Medicine
DX: R07.9 Chest pain, unspecified (principal); R20.2 Paresthesia of skin; R20.0 Anesthesia of skin; R06.02 Shortness of breath; Q96.9 Turner's syndrome, unspecified; E66.9 Obesity, unspecified; Z79.899 Other long term (current) drug therapy
CPT/HCPCS: 70450; 71046; 71275; 80048; 81001; 81025; 84484; 85025; 85379; 93005; 99285; Q9967; A4216

== ENCOUNTER 2019-03-19 18:18 | Emergency (ER) | payer SELFPAY ==
[2019-03-19] VITALS (7 sets, daily range): BP systolic 108–153; BP diastolic 84–111; PULSE 99–125; RESP 13–22; TEMP 36.2–37.1; O2SAT 97–100; BMI 44.9
--- NOTE | 2019-03-19 19:44 | EKG12_ITS ---
Test Reason : CHEST TIGHTNESS Blood Pressure : / mmHG Vent. Rate : 104 BPM Atrial Rate : 104 BPM P-R Int : 150 ms QRS Dur : 080 ms QT Int : 358 ms P-R-T Axes : 003 014 030 degrees QTc Int : 470 ms Sinus tachycardia Otherwise normal ECG Confirmed by KING ROMERO ([id number]), order editor HERMINIA ALCARAZ ([id number]) on 03/21/2019 10:46:34 AM Referred By: MARVEL Confirmed By:KING ROMERO
--- NOTE | 2019-03-19 19:50 | RAD_ITS ---
STUDY: X-RAY CHEST REASON FOR EXAM: Female, 34 years old. No evidence of breath. Chest pain. TECHNIQUE: Single AP portable view of the chest. COMPARISON: January 05, 2019 and June 25, 2018. FINDINGS: There is a mildly improved inspiratory effort. There is no infiltrate or mass within the lungs. There is no demonstrated pleural abnormality. Normal size heart. Normal mediastinum and tracy mediastinal densities seen on the prior study is no longer appreciated.. Normal visualized pulmonary arteries. Normal visualized aortic arch and descending thoracic aorta. There are diffuse degenerative changes of the visualized thoracic spine. There is degenerative osteoarthritis of the bilateral shoulders. There is no demonstrated abnormality of the visualized soft tissue structures of the upper abdomen. RAD/Chest 1 View (Portable) IMPRESSION: No acute cardiopulmonary disease. Electronically Signed: Francis Curry DO at 20:11 EST Tel [phone], Service support ,
[2019-03-19 19:55] LABS: Absolute Lymphocyte Count 2.04 X10^3/uL (0.83-4.51); Absolute Neutrophil Count 5.1 X10^3/uL (2.0-7.7); Basophil# 0.06 X10^3/uL; Basophil% 0.7 % (0-1); Eosinophil# 0.11 X10^3/uL; Eosinophils% 1.4 % (0-5); Hematocrit 41.6 % (37-47); Hemoglobin 13.9 g/dL (12.0-15.0); Lymphocyte # 2.04 X10^3/ul (4.0); Lymphocyte % 25.4 % (19-41); Mean Corp Hgb Conc 33.4 g/dL (32-36); Mean Corpuscular Volume 83.9 fL (81-99); Monocyte# 0.67 X10^3/uL; Monocyte% 8.3 % (0-10); NRBC Flagged by Analyzer 0 % (0-5); Neutrophil # 5.08 X10^3/uL (2.7-7.7); Neutrophil % 63.3 % (47-70); Platelet Count 268 K/mm3 (150-450); RBC Distribution Width CV 12.7 % (11.6-14.6); RBC Distribution Width SD 38.5 fl (35.1-43.9); Red Blood Count 4.96 M/mm3 (4.2-5.4)
[2019-03-19 20:02] LABS: D-Dimer Quantitative (DVT/PE) < 0.27 FEU/ug/m (0.27-0.49)
[2019-03-19] MEDS: Ipratropium/Albuterol Sulfate 3 ML AMPUL.NEB INHALATION (20:03)
[2019-03-19 20:16] LABS: Anion Gap 7 (5-15); BUN 9 mg/dL (7-18); BUN/Creat Ratio 12.4 RATIO (10-20); Calcium,Total 9.8 mg/dL (8.5-10.1); Chloride 105 mmol/L (98-107); Creatinine, Serum 0.73 mg/dL (0.55-1.02); EST Glomerular Filtration Rate 97 mL/min (>60); Est Glom Filt Rate - Afr Amer 117 mL/min (>60); Glucose 160 mg/dL (74-106); Potassium 3.6 mmol/L (3.5-5.1); Sodium Level 138 mmol/L (136-145); Thyroid Stim Hormone (TSH) 3.22 uIU/mL (0.358-3.74)
[2019-03-19] MEDS: 0.9% Normal Saline 1,000 ML 1000 ML IV (20:20)
--- NOTE | 2019-03-19 20:31 | ED.DCSUM_ITS ---
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 She reports that she has chest pain and shortness of breath began 2 days ago. Is gradually gotten worse. States that the shortness of breath is moderate now and severe at worst. Is increased with exertion. She has transient relief with her inhaler. Patient reports the chest pain radiates up in the left side of her neck. Is been a constant pain that is sharp for the past 5 days. This waxes and wanes. 7-10 at worst and 4-10 currently. Is increased with coughing or deep breaths. Is decreased by nothing. She denies any associated nausea, vomiting, diaphoresis, ankle swelling, calf pain. Physical Examination: Vitals: 97.2, 153/92, 125, 20, 90% room air which is not hypoxic. General: Well-nourished and well-developed. Head: Normocephalic atraumatic. Neck: Supple, no lymphadenopathy. No JVD. Nontender. Cardiovascular: Tachycardic regular rhythm. No murmurs. Respiratory: No respiratory distress. Clear to auscultation bilaterally. Abdominal: Soft, nontender, nondistended, normal bowel sounds. No guarding, rebound, or peritoneal signs. Back: Nontender. Extremities: Nontender, no edema. Skin: Normal color, no rash. Neurologic: Alert and oriented ?3. Cranial nerves II through XII are intact. Normal strength and sensation. Psych: Normal affect. Test Results: EKG is sinus tach at 104 and is unchanged from December of last year. Troponin is negative. D-dimer is negative. Chem-7 shows a glucose of 160. CBC is normal. TSH is normal. Chest x-ray shows no acute disease. Emergency Department Course and Treatment: Patient was given albuterol Atrovent aerosols with no relief. She was given a dose of Tylenol for her pain. She reports that she is supposed to be on Lopressor 3 times daily and has missed her evening dose. She was given 50 mg of Lopressor p.o. Patient reports that she had a heart catheterization in January of last year at [facility] did not require stents. Feel that she is a suitable candidate for further outpatient evaluation. Treatment Plan: Patient be discharged instructions to follow-up with Dr. Brock in 1 to 2 days if not improving. Return to the emergency department for any worsening symptoms. Disposition: To home in improved and stable condition. Impression: 1. Atypical chest pain. 2. Dyspnea. 3. Pain score of 0. This note was generated with [employer] dictation software. It may contain incorrect words, spelling, and punctuation that were not noted in review of the chart prior to signing ED Disposition - Plan for ED Patient: Disposition: Home or Assisted Living Instructions: ED Dyspnea Referrals: Yina Brock MD [Primary Care Provider] - 1-2 Days if not improving
[2019-03-19] MEDS: Acetaminophen 500 MG Tablet 1000 MG PO (20:57)
[2019-03-19] MEDS: Metoprolol Tartrate 25 MG Tablet 50 MG PO (21:31)
== END 2019-03-19 21:32 | disposition home or self-care (01) ==
PROVIDERS: Emergency Provider Emergency Medicine; Family Provider Internal Medicine; PCP Internal Medicine
DX: R07.89 Other chest pain (principal); R06.00 Dyspnea, unspecified; R53.1 Weakness; J45.909 Unspecified asthma, uncomplicated; I71.2 Thoracic aortic aneurysm, without rupture; Q23.1 Congenital insufficiency of aortic valve; Q96.9 Turner's syndrome, unspecified; Z79.82 Long term (current) use of aspirin; Z79.899 Other long term (current) drug therapy
CPT/HCPCS: 71045; 80048; 84443; 84484; 85025; 85379; 93005; 94640; 96360; 99285; J7030; A4216

== ENCOUNTER 2019-04-10 15:33 | Emergency (ER) | payer SELFPAY ==
[2019-03-19 18:20] VITALS: BMI 44.9
[2019-04-10 15:33] VITALS: PULSE 122; RESP 23; TEMP 36.9; O2SAT 99; BMI 46.6
--- NOTE | 2019-04-10 16:01 | ED.VIS.GEN ---
History of Present Illness Chief Complaint: Shortness of Breath Informant: Patient Onset: Days - Onset of respiratory symptoms 3 days ago Context: Sudden Onset Timing: Continuous Quality: Congestion, change in voice, shortness of breath, wheezing Location: Respiratory Current Severity: Mild Maximum Severity: Moderate Worsened by: Activity Relieved by: Nothing Associated Symptoms: Upper respiratory symptoms with loss of voice and cough Narrative: Patient is a 34-year-old woman who was sent from the urgent care because of rapid heartbeat and respiratory rate. She has been ill for the past 3 days. She denies headache. Denies visual, ocular auditory symptoms. She does report rhinorrhea and congestion. She reports sore throat. She does report change in voice. Occasionally her cough is productive of brown-colored sputum. She states she is a non-smoker. She denies nausea, vomiting or diarrhea. She has no history of asthma. She states her mother smokes and she is around her mother. She denies history of PE or DVT. She denies leg pain, swelling discoloration. Prior similar symptoms: No Recent Illness/Hospitalization: No - Past Medical History (1) Congenital bicuspid aortic valve Status: Chronic (2) Hypothyroidism Status: Chronic (3) Shortness of breath at rest Status: Resolved Past Medical History - Allergies and Home Meds Allergies/Adverse Reactions: Allergies doxycycline Adverse Reaction (Verified 04/10/19 15:36) Abd cramps/diarrhea Primary Care Physician: Yina Brock MD [Primary Care Provider] - Prior records reviewed: Yes Surgical History: appendectomy, - - Catheterization-cardiac Lives: With Family Smoking Status: Never smoker Alcohol: None Drugs: None - Family History Maternal Family History: Reports: Diabetes Review of Systems General: Denies: Chills, Fever, Malaise, Sweats, Weight loss Eyes: Denies: Visual changes - bilaterally, Blurred Vision - bilaterally ENT: Reports: Rhinorrhea, Sore throat. Denies: Bilateral ear pain Cardiovascular: Reports: Heart racing. Denies: Chest pain, Palpitations Respiratory: Reports: Dyspnea, Cough, Sputum, Dyspnea on exertion. Denies: Orthopnea, Paroxysmal nocturnal dyspnea Gastrointestinal: Denies: Abdominal pain, Nausea, Vomiting, Diarrhea, Melena, Hematochezia Genitourinary: Denies: Dysuria, Hematuria, Frequency Musculoskeletal: Denies: Myalgias, Arthralgias, Neck pain, Back pain, Swelling, Extremity Pain, -, - Skin: Denies: Rash, Wounds Neurological: Denies: Headache, Weakness, Parasthesia, Numbness Hematologic: Denies: Easy bruising, Easy bleeding Physical Exam Vital Signs/Narrative: Vital Signs Temp Pulse Resp Pulse Ox 04/10/19 15:33 98.5 F 122 H 23 H 99 Inital Vital Signs reviewed: Yes General: Well nourished, Well developed, Obese, - - Appears ill but not toxic. Head: Normocephalic, Atraumatic Eyes: Perrl, EOMI. Negative for: Pale conjunctiva, Scleral icterus ENT: Moist mucous membranes, TM's clear, Nasal congestion Neck: Supple, Nontender, No lymphadenopathy, No JVD Cardiovascular: Regular rhythm, No murmurs, Normal S1, Normal S2, Tachycardia Respiratory: Chest nontender, Wheezing, Decreased Air Movement Abdomen: Soft, Nontender, Nondistended, Normal bowel sounds, No masses Back: Nontender, Normal Inspection Extremities: Nontender, No edema, - - There is no asymmetry, swelling, discoloration, leg vein distention, palpable cords or tenderness along the distribution of the deep venous system. Skin: Normal color, No rash. Negative for: Cyanosis, Diaphoresis, Jaundice, No Trauma Neurological: Alert, Oriented x3, Cranial nerves II-XII grossly intact, Normal Strength, Normal Sensation Psychological: Normal affect, Normal Mood Diagnostic/Tx/Re-eval Chest X-Ray - ED: 2 View, Read by ED Physician, Normal, Heart, Mediastinum, Bony Structures, No Acute Disease 04/10/19 16:44 Chest PA and Lateral [RAD] Stat - Medical Decision Making Patient's history is suggestive of viral infection. Since she has a cough productive of brown-colored sputum will obtain chest x-ray to evaluate for pneumonia. She was treated with albuterol since she is wheezing. She states she had a rapid influenza screen performed at the urgent care that was negative. Patient was reassessed at 1655. She is no longer wheezing. Plan is to discharge to home. She states she has an inhaler at home. She was instructed to use it every 2-4 hours while awake for the next couple of days. ED Disposition - Plan for ED Patient: Disposition: Home or Assisted Living Diagnosis: Acute bronchospasm due to viral infection Instructions: BRONCHITIS, No Antibiotic (Adult) Referrals: Yina Brock MD [Primary Care Provider] - 1 Week if not improving Additional Instructions: Puffs of inhaler every 2-4 hours while awake for the next 2 to 3 days then every 4-6 hours as needed. If anything changes or concerns you do not hesitate to contact your primary care physician or return to the emergency department.
[2019-04-10 16:07] VITALS: PULSE 150; RESP 24
[2019-04-10] MEDS: Albuterol 2.5 MG/3 ML VIAL.NEB. INHALATION ×3 (16:07)
[2019-04-10 16:15] VITALS: O2SAT 99
--- NOTE | 2019-04-10 16:44 | RAD_ITS ---
STUDY: X-RAY CHEST REASON FOR EXAM: Female, 34 years old. PT ARRIVES TO ED FROM URGENT CARE FOR INCREASED SOB. TECHNIQUE: 2 views COMPARISON: Prior chest exam of January 05, 2019 FINDINGS: The lungs are clear and expanded. There is no demonstrated pleural abnormality. Normal size heart. Normal mediastinum and tracy. Normal visualized pulmonary arteries. There is atherosclerotic tortuosity of the aortic arch and descending thoracic aorta. Normal visualized thoracic spine. Normal visualized ribs, clavicles, and shoulders. There is no demonstrated abnormality of the visualized soft tissue structures of the upper abdomen. RAD/Chest PA and Lateral IMPRESSION: No acute cardiopulmonary findings or changes. Negative for new consolidation, focal atelectasis, cardiomegaly or pleural effusion. Electronically Signed: Yissel Julio MD at 17:25 EST , Service support ,
== END 2019-04-10 17:07 | disposition home or self-care (01) ==
PROVIDERS: Emergency Provider Emergency Medicine; PCP Internal Medicine
DX: J98.01 Acute bronchospasm (principal); B34.9 Viral infection, unspecified; J02.9 Acute pharyngitis, unspecified; J34.89 Other specified disorders of nose and nasal sinuses; E66.9 Obesity, unspecified; E03.9 Hypothyroidism, unspecified; Q23.1 Congenital insufficiency of aortic valve; Z79.82 Long term (current) use of aspirin; Z79.899 Other long term (current) drug therapy
CPT/HCPCS: 71046; 94640; 99282

== ENCOUNTER 2019-05-25 00:55 | Emergency (ER) | payer MEDICAID, SELFPAY ==
[2019-05-25 00:55] VITALS: BP 130/96; PULSE 123; RESP 26; TEMP 36.8; O2SAT 100; BMI 21.4
--- NOTE | 2019-05-25 01:22 | EKG12_ITS ---
Test Reason : DYSRHYTHMIA Blood Pressure : / mmHG Vent. Rate : 103 BPM Atrial Rate : 103 BPM P-R Int : 166 ms QRS Dur : 076 ms QT Int : 350 ms P-R-T Axes : 029 -02 037 degrees QTc Int : 458 ms Sinus tachycardia Minimal voltage criteria for LVH, may be normal variant Septal infarct , age undetermined Abnormal ECG Confirmed by SUSANA HESS, APOLINAR ([id number]), electronic news gathering editor DOMINIQUE CANSECO ([id number]) on 05/27/2019 1:50:58 PM Referred By: ROSY Confirmed By:JOSE ALBERTO MEZA MD
--- NOTE | 2019-05-25 01:24 | ED.DCSUM_ITS ---
History of Present Illness Chief Complaint: Shortness of Breath Informant: Patient Onset: Weeks - 2 Narrative: Patient presents shortness of breath over 2 weeks, worsened this evening with laying down. History of Marcus syndrome, with aortic stenosis, bicuspid valve, followed by [facility] cardiology. Reports had a heart cath this past December secondary to concerns of pulmonary hypertension which returned negative. She states she had left heart cath. States no intervention. Denies chest pain. Denies cough. Denies any recent travel, surgeries, or immobilizations. No history of PE or DVT. Denies any recent vomiting or diarrhea. No urinary symptoms. Prior similar symptoms: Yes Past Medical History - Allergies and Home Meds Allergies/Adverse Reactions: Allergies doxycycline Adverse Reaction (Verified 05/25/19 00:58) Abd cramps/diarrhea Primary Care Physician: Yina Brock MD [Primary Care Provider] - Past Medical History: - - Marcus syndrome, GERD, aortic stenosis, bicuspid valve Surgical History: appendectomy, - - Catheterization-cardiac Smoking Status: Never smoker - Family History Maternal Family History: Reports: Diabetes Review of Systems General: Denies: Chills, Fever, Sweats Eyes: Denies: Visual changes - bilaterally, Diplopia ENT: Denies: Rhinorrhea, Sore throat Cardiovascular: Denies: Chest pain, Palpitations Respiratory: Reports: Dyspnea. Denies: Cough, Dyspnea on exertion Gastrointestinal: Denies: Abdominal pain, Nausea, Vomiting, Diarrhea, Melena, Hematochezia Genitourinary: Denies: Dysuria, Hematuria, Frequency Musculoskeletal: Denies: Back pain, Extremity Pain Skin: Denies: Rash, Wounds Neurological: Denies: Headache, Weakness, Numbness Physical Exam Vital Signs/Narrative: Vital Signs Temp Pulse Resp BP Pulse Ox 05/25/19 00:55 98.3 F 123 H 26 H 130/96 H 100 Inital Vital Signs reviewed: Yes General: Well nourished, Well developed, No Acute Distress Head: Normocephalic, Atraumatic Eyes: Perrl, EOMI ENT: Moist mucous membranes, No rhinorrhea Neck: Supple, Nontender Cardiovascular: Regular rate, Regular rhythm, No murmurs, Tachycardia Respiratory: No distress, CTA bilaterally, Chest nontender, - - Symmetric breath sounds Abdomen: Soft, Nontender, Nondistended, Normal bowel sounds Back: Nontender, Normal Inspection Extremities: Nontender, No edema Skin: Normal color, No rash Neurological: Alert, Oriented x3, Cranial nerves II-XII grossly intact, Normal Strength, Normal Sensation Psychological: Normal affect, Normal Mood Diagnostic/Tx/Re-eval Clinical Impression(s) from Imaging Studies Chest X-Ray 05/25/19 02:23 IMPRESSION: Normal x-ray examination of the chest. Electronically Signed: Tracy Charlton MD at 2:45 EDT , Service support , Abnormal Lab Results 05/25/19 05/25/19 05/25/19 01:30 01:30 01:30 WBC 7.0 RBC 4.80 Hgb 13.7 Hct 40.8 MCV 85.0 MCH 28.5 MCHC 33.6 RDW Std Deviation 40.4 RDW Coeff of Abdirahman 13.2 Plt Count 275 MPV 10.3 Immature Gran % (Auto) 0.700 Neut % (Auto) 60.3 Lymph % (Auto) 29.7 [place] % (Auto) 7.5 Eos % (Auto) 1.1 Baso % (Auto) 0.7 Absolute Neuts (auto) 4.2 Absolute Lymphs (auto) 2.09 Nucleated RBC % 0 PT 12.6 INR 1.0 APTT 24.5 D-Dimer Quant (PE/DVT) 0.34 Sodium 140 Potassium 3.8 Chloride 106 Carbon Dioxide 28.0 Anion Gap 6 BUN 11 Creatinine 0.77 Estim Creat Clear Calc 74.99 Est GFR (MDRD) Af Amer 110 Est GFR (MDRD) Non-Af 91 BUN/Creatinine Ratio 14.3 Glucose 233 H Calcium 9.4 Troponin I < 0.015 B-Natriuretic Peptide 05/25/19 01:30 WBC RBC Hgb Hct MCV MCH MCHC RDW Std Deviation RDW Coeff of Abdirahman Plt Count MPV Immature Gran % (Auto) Neut % (Auto) Lymph % (Auto) [place] % (Auto) Eos % (Auto) Baso % (Auto) Absolute Neuts (auto) Absolute Lymphs (auto) Nucleated RBC % PT INR APTT D-Dimer Quant (PE/DVT) Sodium Potassium Chloride Carbon Dioxide Anion Gap BUN Creatinine Estim Creat Clear Calc Est GFR (MDRD) Af Amer Est GFR (MDRD) Non-Af BUN/Creatinine Ratio Glucose Calcium Troponin I B-Natriuretic Peptide 17.7 - EKG Initial EKG Interpretation: Sinus Rhythm - Sinus rate of 103, no ST changes. T wave flattening 3 and aVF. - Medical Decision Making Patient with dyspnea on present with tachycardia pulse ox is stable. Given IV fluids, cardiac work-up negative. Normal BNP, d-dimer negative. Chest x-ray obtained also negative. Discomfort epigastric middle chest, given GI cocktail with minimal improvement. Discussed dyspnea with exertion. She has no PE risk factors. Her dimer is negative. Discussed with patient can look further with the CTA concern at this time however she states she would like to monitor symptoms and return if anything worsens. Heart rate did improve on reevaluation into the 90s. Strict signs and symptoms discussed to return. Otherwise following up with her PCP. All questions were answered. ED Disposition - Plan for ED Patient: Disposition: Home or Assisted Living Diagnosis: Dyspnea Instructions: ED Dyspnea Referrals: Yina Brock MD [Primary Care Provider] - 3-5 Days if not improving
[2019-05-25 01:44] LABS: Absolute Lymphocyte Count 2.09 X10^3/uL (0.83-4.51); Absolute Neutrophil Count 4.2 X10^3/uL (2.0-7.7); Basophil# 0.05 X10^3/uL; Basophil% 0.7 % (0-1); Eosinophil# 0.08 X10^3/uL; Eosinophils% 1.1 % (0-5); Hematocrit 40.8 % (37-47); Hemoglobin 13.7 g/dL (12.0-15.0); Lymphocyte # 2.09 X10^3/ul (4.0); Lymphocyte % 29.7 % (19-41); Mean Corp Hgb Conc 33.6 g/dL (32-36); Mean Corpuscular Hgb 28.5 pg (27.0-32.0); Mean Platelet Vol. 10.3 fl (6.2-12.0); Monocyte# 0.53 X10^3/uL; Monocyte% 7.5 % (0-10); NRBC Flagged by Analyzer 0 % (0-5); Neutrophil # 4.24 X10^3/uL (2.7-7.7); Neutrophil % 60.3 % (47-70); Platelet Count 275 K/mm3 (150-450); RBC Distribution Width CV 13.2 % (11.6-14.6); RBC Distribution Width SD 40.4 fl (35.1-43.9)
[2019-05-25 01:52] LABS: Prothrombin Time (Protime)PT. 12.6 SECONDS (11.7-14.9)
[2019-05-25 01:53] LABS: Partial Thromboplast Time 24.5 Seconds (24.1-36.2)
[2019-05-25 01:55] LABS: D-Dimer Quantitative (DVT/PE) 0.34 FEU/ug/m (0.27-0.49)
[2019-05-25 02:07] LABS: Anion Gap 6 (5-15); BUN 11 mg/dL (7-18); BUN/Creat Ratio 14.3 RATIO (10-20); Calcium,Total 9.4 mg/dL (8.5-10.1); Chloride 106 mmol/L (98-107); Creatinine, Serum 0.77 mg/dL (0.55-1.02); EST Glomerular Filtration Rate 91 mL/min (>60); Est Glom Filt Rate - Afr Amer 110 mL/min (>60); Estimated Creatinine Clearance 74.99 ml/min; Glucose 233 mg/dL (74-106); Potassium 3.8 mmol/L (3.5-5.1); Sodium Level 140 mmol/L (136-145)
[2019-05-25 02:10] LABS: BNP,B-Type NATRIURETIC PEPTIDE 17.7 pg/mL (0-100)
--- NOTE | 2019-05-25 02:23 | RAD_ITS ---
STUDY: X-RAY CHEST REASON FOR EXAM: Female, 34 years old. sob starting tonight -- hx of asthma TECHNIQUE: PA and lateral views of the chest. COMPARISON: 04/10/2019. FINDINGS: The lungs are clear and slightly underexpanded. There is no demonstrated pleural abnormality. Normal size heart. Normal mediastinum and tracy. Normal visualized pulmonary arteries. Normal visualized aortic arch and descending thoracic aorta. Normal visualized thoracic spine. Normal visualized ribs, clavicles, and shoulders. There is no demonstrated abnormality of the visualized soft tissue structures of the upper abdomen. RAD/Chest PA and Lateral IMPRESSION: Normal x-ray examination of the chest. Electronically Signed: Tracy Charlton MD at 2:45 EDT , Service support ,
[2019-05-25 03:00] VITALS: BP 126/85; PULSE 104; RESP 18; O2SAT 98
[2019-05-25] MEDS: Mag Hydrox/Al Hydrox/Simeth 30 ML UDC PO (04:18)
== END 2019-05-25 04:54 | disposition home or self-care (01) ==
PROVIDERS: Emergency Provider Emergency Medicine; PCP Internal Medicine
DX: R06.00 Dyspnea, unspecified (principal); R10.13 Epigastric pain; Q96.9 Turner's syndrome, unspecified; Q23.1 Congenital insufficiency of aortic valve; K21.9 Gastro-esophageal reflux disease without esophagitis; Z79.82 Long term (current) use of aspirin; Z79.899 Other long term (current) drug therapy
CPT/HCPCS: 71046; 80048; 83880; 84484; 85025; 85379; 85610; 85730; 93005; 99285; A4216

== ENCOUNTER 2019-08-17 22:51 | Emergency (ER) | payer MEDICAID, SELFPAY ==
[2019-08-17 22:51] VITALS: BP 145/96; PULSE 124; RESP 16; TEMP 36.3; O2SAT 100; BMI 44.4
--- NOTE | 2019-08-17 23:20 | RAD_ITS ---
HISTORY: sob ADDITIONAL HISTORY: None provided. TECHNIQUE: Frontal chest radiograph. Number of images including paperwork: 1 COMPARISON: 05/25/2019 FINDINGS: LUNGS AND PLEURA: Low lung volumes. No consolidation, mass or pleural effusion. CARDIAC SILHOUETTE: Unremarkable. MEDIASTINUM AND ANNE MARIE: Aortic tortuosity. UPPER ABDOMEN: Unremarkable. SKELETON AND SOFT TISSUES: No acute findings. OTHER DEVICES AND HARDWARE: None. RAD/Chest 1 View (Portable) IMPRESSION: No acute cardiopulmonary abnormality. at 0005 Reported and signed by: Diamond Olson MD Electronically Signed: Diamond Olson MD at 0:05 EDT Tel , Service support ,
--- NOTE | 2019-08-17 23:20 | EKG12_ITS ---
Test Reason : CP Blood Pressure : / mmHG Vent. Rate : 129 BPM Atrial Rate : 129 BPM P-R Int : 142 ms QRS Dur : 072 ms QT Int : 334 ms P-R-T Axes : 022 006 083 degrees QTc Int : 489 ms Sinus tachycardia Septal infarct , age undetermined Abnormal ECG Confirmed by DAYANARA HESS, ZHEN ([id number]), material expeditor HERMINIA ALCARAZ ([id number] on 08/20/2019 10:16:59 AM Referred By: NICK Confirmed By:ZHEN NICHOLE MD
--- NOTE | 2019-08-17 23:21 | ED.DCSUM_ITS ---
History of Present Illness Chief Complaint: Shortness of Breath Informant: Patient Onset: Days - 2-3 Activity at onset: Rest Timing: Continuous - gradually worsening; initially intermittent, would occur at rest. Quality: Dyspnea on exertion, - - just feels difficult to breath, not like my asthma. Negative for: Wheezing Current Severity: Mild Maximum Severity: Moderate Worsened by: Exertion Relieved by: Rest Associated Symptoms: Cough - minimal, occasionally in mornings and nights. occasionally productive of yellow sputum.. Negative for: Fever, Rhinorrhea, Sore throat Chest Pain: Intermittent, Pressure - left inframammary without radiation Narrative: Patient with Marcus syndrome, and cardiac abnormalities that have been monitored without needing repair at this time, including bicuspid aortic valve, aortic stenosis, hypoplastic aortic arch and possibly a thoracic aortic aneurysm. She states she has been having some left-sided chest discomfort off and on, but mostly trouble breathing in the last several days. No fevers. Minimal coughing, does not feel that she has a cold, she has some seasonal allergies and feels like the coughing is related. States today she noticed some discomfort in her left calf. No injury there. No swelling. No history of DVT or PE and she does not take anticoagulants for any reason. No recent travel or immobilization. Patient presents during the coronavirus national emergency declaration, she has had no contact with anyone infected with coronavirus that she knows of, and occasionally goes to the store for groceries and wears a mask, but has basically been staying home and has not traveled out of the area recently. 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 (2) Congenital bicuspid aortic valve Status: Chronic (3) Hypothyroidism Status: Chronic (4) Pseudocoarctation of aorta, congenital Status: Chronic (5) Tachycardia Status: Chronic (6) Marcus syndrome Status: Chronic Past Medical History - Allergies and Home Meds Allergies/Adverse Reactions: Allergies doxycycline Adverse Reaction (Verified 08/17/19 22:55) Abd cramps/diarrhea Primary Care Physician: Yina Brock MD [Primary Care Provider] - Surgical History: appendectomy, - - Catheterization-cardiac Smoking Status: Never smoker - Family History Maternal Family History: Reports: Diabetes Review of Systems General: Denies: Chills, Fever, Sweats Eyes: Denies: Visual changes - bilaterally, Diplopia ENT: Denies: Bilateral ear pain, Rhinorrhea, Sore throat Cardiovascular: Reports: Chest pain. Denies: Palpitations, Heart racing Respiratory: Reports: Dyspnea, Cough, Sputum, Dyspnea on exertion. Denies: Orthopnea Gastrointestinal: Denies: Abdominal pain, Nausea, Vomiting, Diarrhea, Melena, Hematochezia Genitourinary: Denies: Dysuria, Hematuria, Frequency Musculoskeletal: Reports: Extremity Pain. Denies: Back pain, Swelling Skin: Denies: Rash, Wounds Neurological: Denies: Headache, Weakness, Numbness Physical Exam Vital Signs/Narrative: Vital Signs Temp Pulse Resp BP Pulse Ox 08/17/19 22:51 97.3 F L 124 H 16 145/96 H 100 Inital Vital Signs reviewed: Yes General: Well nourished, Well developed, Obese, No Acute Distress Head: Normocephalic, Atraumatic Eyes: Perrl, EOMI ENT: Moist mucous membranes, No rhinorrhea Neck: Supple, Nontender, No lymphadenopathy, No JVD Cardiovascular: Regular rate, Regular rhythm, No murmurs, Tachycardia Respiratory: No distress, Chest nontender, Wheezing - Mild, diffuse/bilateral, symmetric. Equal breath sounds bilaterally. Trachea midline.. Negative for: Rales, Rhonchi Abdomen: Soft, Nontender, Nondistended, Normal bowel sounds Back: Nontender, Normal Inspection. Negative for: CVA tenderness Extremities: Nontender, No edema. Negative for: Calf Tenderness Skin: Normal color, No rash, No Trauma Neurological: Alert, Oriented x3, Cranial nerves II-XII grossly intact, Normal Strength, Normal Sensation Psychological: Normal affect, Normal Mood Diagnostic/Tx/Re-eval Impressions Chest X-Ray 08/17/19 23:20 IMPRESSION: No acute cardiopulmonary abnormality. at 0005 Reported and signed by: Diamond Olson MD Electronically Signed: Diamond Olson MD at 0:05 EDT Tel , Service support , Chest CTA 08/18/19 00:48 IMPRESSION: No pulmonary embolus detected. Individualized dose optimization techniques were used for this CT. at 0142 Reported and signed by: Diamond Olson MD Electronically Signed: Diamond Olson MD at 1:42 EDT Tel , Service support , 08/17/19 23:20 Chest 1 View (Portable) [RAD] Stat 08/18/19 00:48 CTA Chest W/WO Contrast [CT] Stat Laboratory Results 08/17/19 08/17/19 08/17/19 23:10 23:10 23:10 WBC 6.5 RBC 4.62 Hgb 13.0 Hct 39.8 MCV 86.1 MCH 28.1 MCHC 32.7 RDW Std Deviation 40.3 RDW Coeff of Abdirahman 13.0 Plt Count 260 MPV 10.1 Immature Gran % (Auto) 0.800 Neut % (Auto) 65.3 Lymph % (Auto) 25.5 [place] % (Auto) 6.0 Eos % (Auto) 1.8 Baso % (Auto) 0.6 Absolute Neuts (auto) 4.3 Absolute Lymphs (auto) 1.66 Nucleated RBC % 0 D-Dimer Quant (PE/DVT) < 0.27 L Sodium 138 Potassium 3.7 Chloride 105 Carbon Dioxide 24.0 Anion Gap 9 BUN 11 Creatinine 0.77 Estim Creat Clear Calc 160.65 Est GFR (MDRD) Af Amer 110 Est GFR (MDRD) Non-Af 91 BUN/Creatinine Ratio 14.3 Glucose 373 H Calcium 9.3 Troponin I < 0.015 B-Natriuretic Peptide 08/17/19 23:10 WBC RBC Hgb Hct MCV MCH MCHC RDW Std Deviation RDW Coeff of Abdirahman Plt Count MPV Immature Gran % (Auto) Neut % (Auto) Lymph % (Auto) [place] % (Auto) Eos % (Auto) Baso % (Auto) Absolute Neuts (auto) Absolute Lymphs (auto) Nucleated RBC % D-Dimer Quant (PE/DVT) Sodium Potassium Chloride Carbon Dioxide Anion Gap BUN Creatinine Estim Creat Clear Calc Est GFR (MDRD) Af Amer Est GFR (MDRD) Non-Af BUN/Creatinine Ratio Glucose Calcium Troponin I B-Natriuretic Peptide 33.6 - Rhythm Strip Rhythm Strip: Sinus Tach Rate: 120 Ectopy: None - EKG Initial EKG Interpretation: No Acute Injury Pattern, Sinus Tachycardia, - - No S wave in lead I Treatment - Dyspnea: Albuterol Repeat Evaluation: Improved - Only slightly - Medical Decision Making Obtained work-up including d-dimer which returned negative. Her chest x-ray was normal. Since she was still fairly short of breath after albuterol treatment, I performed CT angiography in order to get the most information about her chest in order to rule out or lessen the possibility of COVID infection, occult pneumonia, pericardial effusion, pulmonary embolus. The CTA as above is normal. Therefore I gave her a couple more treatments including a DuoNeb. They made her feel little shaky which she has had before, but she still improved a little more. I feel this is probably reactive airway. She was hyperglycemic in the 300s but no sign of acidosis or DKA. I treated that with some insulin. I offered admission. I also offered to send her home on a short course of low- dose prednisone, she prefers the latter. Give her a dose of Solu-Medrol here and since she is a diabetic and had hyperglycemia we will just send her home on 20 mg daily for the next 4 days of prednisone. She is comfortable with that plan we discussed reasons to return. ED Disposition - Plan for ED Patient: Disposition: Home or Assisted Living Diagnosis: Hyperglycemia due to type 2 diabetes mellitus, Reactive airway disease with wheezing Instructions: ED REACTIVE AIRWAY DISEASE Adult, ED Diabetic Hyperglycemia Prescriptions: Prednisone [Deltasone] 20 mg PO DAILY #4 tab Transmission Status: Pending to [facility] Referrals: Yina Brock MD [Primary Care Provider] - 2 Days
[2019-08-17 23:28] VITALS: PULSE 107; RESP 22
[2019-08-17] MEDS: Albuterol 2.5 MG/3 ML VIAL.NEB. INHALATION (23:28)
[2019-08-17 23:30] LABS: Absolute Lymphocyte Count 1.66 X10^3/uL (0.83-4.51); Absolute Neutrophil Count 4.3 X10^3/uL (2.0-7.7); Basophil# 0.04 X10^3/uL; Basophil% 0.6 % (0-1); Eosinophil# 0.12 X10^3/uL; Eosinophils% 1.8 % (0-5); Hematocrit 39.8 % (37-47); Lymphocyte # 1.66 X10^3/ul (4.0); Lymphocyte % 25.5 % (19-41); Mean Corp Hgb Conc 32.7 g/dL (32-36); Mean Corpuscular Hgb 28.1 pg (27.0-32.0); Mean Corpuscular Volume 86.1 fL (81-99); Mean Platelet Vol. 10.1 fl (6.2-12.0); Monocyte# 0.39 X10^3/uL; NRBC Flagged by Analyzer 0 % (0-5); Neutrophil # 4.25 X10^3/uL (2.7-7.7); Neutrophil % 65.3 % (47-70); Platelet Count 260 K/mm3 (150-450); RBC Distribution Width SD 40.3 fl (35.1-43.9); Red Blood Count 4.62 M/mm3 (4.2-5.4); White Blood Count 6.5 K/mm3 (4.4-11.0)
[2019-08-17 23:52] LABS: D-Dimer Quantitative (DVT/PE) < 0.27 FEU/ug/m (0.27-0.49)
[2019-08-17 23:55] LABS: Anion Gap 9 (5-15); BUN 11 mg/dL (7-18); BUN/Creat Ratio 14.3 RATIO (10-20); Calcium,Total 9.3 mg/dL (8.5-10.1); Chloride 105 mmol/L (98-107); Creatinine, Serum 0.77 mg/dL (0.55-1.02); EST Glomerular Filtration Rate 91 mL/min (>60); Est Glom Filt Rate - Afr Amer 110 mL/min (>60); Estimated Creatinine Clearance 160.65 ml/min; Glucose 373 mg/dL (74-106); Potassium 3.7 mmol/L (3.5-5.1); Sodium Level 138 mmol/L (136-145)
[2019-08-18 00:28] LABS: BNP,B-Type NATRIURETIC PEPTIDE 33.6 pg/mL (0-100)
--- NOTE | 2019-08-18 00:48 | CT_ITS ---
HISTORY: SOB, INT CP X 2 DAYS, HX HTN, DIAB, TURNERS SYNDROME, ASTHMA ADDITIONAL HISTORY: None provided. TECHNIQUE: CT angiogram images of the chest were obtained with 100 mL Isovue-370 IV contrast as per pulmonary angiogram protocol. 3D MIP images used to aid in evaluation for pulmonary embolism. Number of images including paperwork: [id number] A radiation dose optimization technique was used for this scan. COMPARISON: 01/05/2019 FINDINGS: PULMONARY ARTERIES: No pulmonary arterial filling defects. AORTA AND GREAT VESSELS: No dissection. 2 vessel aortic arch branching pattern (bovine arch) with ectatic origin, similar to previous. Vascular tortuosity. HEART/PERICARDIUM: Unremarkable. MEDIASTINUM: Persistent left SVC. ADENOPATHY: No pathologic appearing adenopathy. THYROID: Unremarkable visualized portions. LUNG PARENCHYMA: No consolidation or mass. PLEURAL SPACES: Unremarkable. UPPER ABDOMEN: Decreased hepatic density compatible steatosis. Spleen appear somewhat prominent, incompletely visualized. OSSEOUS AND SOFT TISSUE STRUCTURES: No acute skeletal findings. Degenerative changes. CT/CTA Chest W/WO Contrast IMPRESSION: No pulmonary embolus detected. Individualized dose optimization techniques were used for this CT. at 0142 Reported and signed by: Diamond Olson MD Electronically Signed: Diamond Olson MD at 1:42 EDT Tel , Service support ,
[2019-08-18] MEDS: Insulin Lispro 100 UNIT/ML INSULN.PEN 6 UNIT SC (01:15)
[2019-08-18 01:17] VITALS: BP 129/97; PULSE 108; RESP 28; O2SAT 100
[2019-08-18 02:02] VITALS: RESP 22; O2SAT 99
[2019-08-18] MEDS: Ipratropium/Albuterol Sulfate 3 ML AMPUL.NEB INHALATION (02:02)
[2019-08-18] MEDS: Albuterol 2.5 MG/3 ML VIAL.NEB. INHALATION (02:02)
--- NOTE | 2019-08-18 02:25 | CPS ---
[0202] Two additional breathing tx.'s given to pt. in ED. x1 Albuterol & x1 Duoneb. Pt.'s HR was 109 & RR was 22 pre-tx. Pt.'s HR elevated into the 130's, so remainder of tx. was cancelled. Breath sounds went from being very tight and diminished to improved aeration all throughout.
[2019-08-18 02:35] VITALS: O2SAT 97
[2019-08-18] MEDS: MethylPREDNISolone 125 MG/2 ML Vial IV (02:41)
--- NOTE | 2019-08-18 02:48 | ED.RN ---
RN LAB AMBULATED IN HALLS.SPO2 MAINTAINED >97% WHEN PT'S FACE MASK WAS NOT PRESENT.
== END 2019-08-18 02:47 | disposition home or self-care (01) ==
PROVIDERS: Emergency Provider Emergency Medicine; PCP Internal Medicine
DX: E11.65 Type 2 diabetes mellitus with hyperglycemia (principal); J45.909 Unspecified asthma, uncomplicated; E66.9 Obesity, unspecified; Q23.1 Congenital insufficiency of aortic valve; Q25.49 Other congenital malformations of aorta; E03.9 Hypothyroidism, unspecified; I10 Essential (primary) hypertension; Q96.9 Turner's syndrome, unspecified; Z79.82 Long term (current) use of aspirin; Z79.899 Other long term (current) drug therapy
CPT/HCPCS: 71045; 71275; 80048; 83880; 84484; 85025; 85379; 93005; 94640; 96361; 96372; 96374; 99251; 99285; G2023; J7040; Q9967; A4216; G0463

== ENCOUNTER 2019-08-18 23:51 | Emergency (ER) | payer MEDICAID, SELFPAY ==
[2019-08-17 22:51] VITALS: BMI 44.4
[2019-08-18 23:52] VITALS: BP 141/74; PULSE 131; RESP 20; TEMP 36.9; O2SAT 98; BMI 44.4
--- NOTE | 2019-08-19 00:12 | EKG12_ITS ---
Test Reason : CP Blood Pressure : / mmHG Vent. Rate : 121 BPM Atrial Rate : 121 BPM P-R Int : 166 ms QRS Dur : 078 ms QT Int : 398 ms P-R-T Axes : 034 007 043 degrees QTc Int : 565 ms Sinus tachycardia Septal infarct , age undetermined Abnormal ECG Confirmed by DAYANARA HESS, ZHEN ([id number]), publishing editor SHREYA VASQUEZ ([id number]) on 08/19/2019 1:23:23 PM Referred By: BB Confirmed By:ZHEN NICHOLE MD
--- NOTE | 2019-08-19 00:16 | ED.VIS.GEN ---
History of Present Illness Chief Complaint: Chest Pain Informant: Patient Onset: Today, Yesterday Timing: Continuous - Patient reports tingling/numbness occiput this been continuous. She now reports continuous tightness in her chest. She also reports shortness of breath., Intermittent - The chest discomfort was initially intermittent per patient. Lasting seconds to 2 to 3 minutes. Quality: Tightness Location: Left side of chest Current Severity: Mild Maximum Severity: Moderate Worsened by: Nothing Relieved by: Nothing Associated Symptoms: Shortness of breath, tingling occiput, blurred vision intermittent by ocula Narrative: Patient is a 34-year-old woman who was seen yesterday. Records were reviewed. She had extensive work-up which was unremarkable. She presents because of palpitations, shortness of breath, tingling in her head, not feeling herself. Per review of old records she has history of chest pain, shortness of breath. There is no history of depression anxiety. Patient denies headache. Patient presently denies double vision, partial or complete loss of vision or visual field. She denies rhinorrhea, congestion postnasal drainage. She denies trouble with speech or swallowing. She states it may be harder to swallow. When asked to explain herself she states it takes more force. There is been no regurgitation or drooling. She denies orthopnea. She denies PND. She denies hematemesis, melena medication. She denies urologic symptoms. She denies leg pain or swelling. She contacted the nurse office correspondent. After speaking with on-call it was recommended she come to the emergency room. She states she informed them that she was seen here yesterday and had an extensive work-up and was negative. Prior similar symptoms: Yes Recent Illness/Hospitalization: Yes - Past Medical History (1) Congenital bicuspid aortic valve Status: Chronic (2) Hypothyroidism Status: Chronic (3) Pseudocoarctation of aorta, congenital Status: Chronic (4) Tachycardia Status: Chronic (5) Marcus syndrome Status: Chronic (6) Chest pain at rest Status: Resolved (7) Shortness of breath at rest Status: Resolved (8) Obstructive sleep apnea of adult Status: Chronic Past Medical History - Allergies and Home Meds Allergies/Adverse Reactions: Allergies doxycycline Adverse Reaction (Verified 08/18/19 23:51) Abd cramps/diarrhea Primary Care Physician: Yina Brock MD [Primary Care Provider] - Prior records reviewed: Yes Surgical History: appendectomy, - - Catheterization-cardiac Lives: Alone Smoking Status: Never smoker Alcohol: None Drugs: None - Family History Maternal Family History: Reports: Diabetes Review of Systems General: Reports: Sweats. Denies: Chills, Fever, Malaise, Subjective, Weight loss Eyes: Reports: Blurred Vision - bilaterally. Denies: Visual changes - bilaterally, Diplopia ENT: Denies: Bilateral ear pain, Rhinorrhea, Sore throat Cardiovascular: Reports: Chest pain, Palpitations. Denies: Heart racing Respiratory: Reports: Dyspnea. Denies: Cough, Sputum, Dyspnea on exertion, Orthopnea, Paroxysmal nocturnal dyspnea Gastrointestinal: Denies: Abdominal pain, Nausea, Vomiting, Diarrhea, Melena, Hematochezia Genitourinary: Denies: Dysuria, Hematuria, Frequency Musculoskeletal: Denies: Myalgias, Arthralgias, Neck pain, Back pain, Swelling, Extremity Pain, -, - Neurological: Reports: Parasthesia. Denies: Headache, Weakness, Numbness Psych: Denies: Depression, Anxiety Endocrine: Denies: Polyuria, Polydipsia Hematologic: Denies: Easy bruising, Easy bleeding Allergy: Denies: Uticaria Physical Exam Vital Signs/Narrative: Vital Signs Temp Pulse Resp BP Pulse Ox 08/18/19 23:52 98.5 F 131 H 20 H 141/74 H 98 Inital Vital Signs reviewed: Yes General: Well nourished, Well developed, Obese, No Acute Distress Head: Normocephalic, Atraumatic Eyes: Perrl, EOMI. Negative for: Pale conjunctiva, Scleral icterus ENT: Moist mucous membranes, No rhinorrhea, TM's clear Neck: Supple, Nontender, No lymphadenopathy, No JVD Cardiovascular: Regular rhythm, No murmurs, Normal S1, Normal S2, Tachycardia Respiratory: No distress, CTA bilaterally, Chest nontender, - - And appears tachypneic. Abdomen: Soft, Nontender, Nondistended, Normal bowel sounds, No masses Rectal: Deferred Back: Nontender, Normal Inspection Extremities: Nontender, No edema Skin: Normal color, No rash, No Trauma. Negative for: Cyanosis, Diaphoresis, Jaundice Neurological: Alert, Oriented x3, Cranial nerves II-XII grossly intact, Normal Strength, Normal Sensation, Normal DTR Psychological: Negative for: Tearful, Agitated Diagnostic/Tx/Re-eval Laboratory Results 08/19/19 08/19/19 08/19/19 00:05 00:05 00:35 WBC 14.7 H RBC 4.76 Hgb 13.3 Hct 41.5 MCV 87.2 MCH 27.9 MCHC 32.0 RDW Std Deviation 41.2 RDW Coeff of Abdirahman 13.2 Plt Count 348 MPV 10.2 Troponin I < 0.015 TSH 2.03 Urine Opiates Screen NEGATIVE Urine Methadone Screen NEGATIVE Ur Barbiturates Screen NEGATIVE Ur Phencyclidine Scrn NEGATIVE Ur Amphetamines Screen NEGATIVE U Methamphetamin-MDMA NEGATIVE U Benzodiazepines Scrn NEGATIVE Urine Cocaine Screen NEGATIVE U Cannabinoids Screen NEGATIVE Ur Drug Screen Comment - Medical Decision Making Patient is now reporting constant pain. Will obtain troponin. EKG does reveal a sinus tachycardia. Presentation not consistent with a aortic dissection. Differential diagnosis includes anxiety reaction, hyperventilation syndrome, iatrogenic hyperthyroidism, doubt PE, doubt myocarditis or pericarditis. There is no evidence of ischemia on EKG. ABG reveals a respiratory alkalosis consistent with hyperventilation syndrome in light of the fact that she is tachycardic, complaining atypical chest pain and dyspnea. ED Disposition - Plan for ED Patient: Disposition: Home or Assisted Living Diagnosis: Acute hyperventilation syndrome, Sinus tachycardia by electrocardiogram Instructions: ED Hyperventilation Syndrome Referrals: Yina Brock MD [Primary Care Provider] - 3-5 Days
[2019-08-19 00:20] LABS: Hematocrit 41.5 % (37-47); Hemoglobin 13.3 g/dL (12.0-15.0); Mean Corpuscular Hgb 27.9 pg (27.0-32.0); Mean Corpuscular Volume 87.2 fL (81-99); Mean Platelet Vol. 10.2 fl (6.2-12.0); Platelet Count 348 K/mm3 (150-450); RBC Distribution Width CV 13.2 % (11.6-14.6); RBC Distribution Width SD 41.2 fl (35.1-43.9); Red Blood Count 4.76 M/mm3 (4.2-5.4); White Blood Count 14.7 K/mm3 (4.4-11.0)
[2019-08-19 00:41] LABS: Thyroid Stim Hormone (TSH) 2.03 uIU/mL (0.358-3.74)
[2019-08-19 01:00] LABS: Amphetamine Urine VISTA NEGATIVE (<1000 ng/mL); Barbiturate Urine VISTA NEGATIVE (< 200 ng/mL); Benzodiazepine Urine VISTA NEGATIVE (< 200 ng/mL); Cocaine Urine VISTA NEGATIVE (< 300 ng/mL); Ecstacy Urine VISTA NEGATIVE (< 500 ng/mL); Methadone Urine VISTA NEGATIVE (< 300 ng/mL); PCP Urine VISTA NEGATIVE (< 25 ng/mL); THC Urine VISTA NEGATIVE (< 50 ng/mL); Vista UDS pH Range 5
[2019-08-19 01:13] LABS: Allen Test POS; Bicarbonate 17.9 mmol/L (22-26); Blood Gas Specimen Type ART; O2 Delivery Device Room Air; PO2 100 mmHG (75-100); SITE L RADIAL; Time Given 32
[2019-08-19 01:14] LABS: Base Excess -5 mmol/L (-2 to +2); SO2 98 % (95-99); Total Carbon Dioxide 19 mmol/L
[2019-08-19 01:15] VITALS: BP 135/94; PULSE 111; RESP 23; O2SAT 98
== END 2019-08-19 01:24 | disposition home or self-care (01) ==
PROVIDERS: Emergency Provider Emergency Medicine; PCP Internal Medicine
DX: F45.8 Other somatoform disorders (principal); R00.0 Tachycardia, unspecified; E66.9 Obesity, unspecified; Q23.1 Congenital insufficiency of aortic valve; E03.9 Hypothyroidism, unspecified; Q96.9 Turner's syndrome, unspecified; G47.33 Obstructive sleep apnea (adult) (pediatric); Z79.82 Long term (current) use of aspirin; Z79.899 Other long term (current) drug therapy
CPT/HCPCS: 36600; 80307; 84443; 84484; 85027; 93005; 99284

== ENCOUNTER → 2019-09-23 | Outpatient (CLI) | payer MEDICAID, SELFPAY | END | disposition home or self-care (01) | LOC: LABSPEC 11:11 | PROVIDERS: PCP Internal Medicine; Referring Provider Nurse Practitioner Family; Visit Provider Nurse Practitioner Family | DX: R11.2 Nausea with vomiting, unspecified (principal); R53.83 Other fatigue | CPT/HCPCS: 87635; C9803; G2023; U0003 ==

== ENCOUNTER 2019-12-23 22:18 | Emergency (ER) | payer MEDICAID, SELFPAY ==
[2019-12-23 22:19] VITALS: BP 144/74; PULSE 129; RESP 26; TEMP 37.1; O2SAT 98; BMI 55.3
--- NOTE | 2019-12-23 22:41 | EKG12_ITS ---
Test Reason : WEAKNESS Blood Pressure : / mmHG Vent. Rate : 109 BPM Atrial Rate : 109 BPM P-R Int : 184 ms QRS Dur : 080 ms QT Int : 342 ms P-R-T Axes : 028 003 026 degrees QTc Int : 460 ms Sinus tachycardia Minimal voltage criteria for LVH, may be normal variant Septal infarct , age undetermined Abnormal ECG Confirmed by SUSANA HESS, APOLNIAR ([id number]), legal editor SHREYA VASQUEZ ([id number]) on 12/30/2019 8:42:48 A M Referred By: MR Confirmed By:JOSE ALBERTO MEZA MD
--- NOTE | 2019-12-23 22:41 | RAD_ITS ---
STUDY: X-RAY CHEST REASON FOR EXAM: Female, 34 years old. WEAKNESS TECHNIQUE: Single frontal view of the chest. COMPARISON: 08/17/2019 FINDINGS: The lungs are clear and expanded. There is no demonstrated pleural abnormality. Normal size heart. Normal mediastinum and tracy. Normal visualized pulmonary arteries. Normal visualized aortic arch and descending thoracic aorta. Normal visualized thoracic spine. Normal visualized ribs, clavicles, and shoulders. There is no demonstrated abnormality of the visualized soft tissue structures of the upper abdomen. RAD/Chest 1 View (Portable) IMPRESSION: Normal x-ray examination of the chest. Electronically Signed: Vadim Eli MD at 23:47 EDT Tel , Service support ,
[2019-12-23 23:10] LABS: Absolute Neutrophil Count 4.7 X10^3/uL (2.0-7.7); Basophil# 0.03 X10^3/uL; Basophil% 0.4 % (0-1); Eosinophils% 1.5 % (0-5); Hemoglobin 13.6 g/dL (12.0-15.0); Lymphocyte % 20.9 % (19-41); Mean Corp Hgb Conc 32.4 g/dL (32-36); Mean Corpuscular Hgb 27.6 pg (27.0-32.0); Mean Corpuscular Volume 85.2 fL (81-99); Mean Platelet Vol. 9.8 fl (6.2-12.0); Monocyte# 0.42 X10^3/uL; Monocyte% 6.3 % (0-10); NRBC Flagged by Analyzer 0 % (0-5); Neutrophil # 4.69 X10^3/uL (2.7-7.7); Neutrophil % 69.9 % (47-70); Platelet Count 258 K/mm3 (150-450); RBC Distribution Width CV 13.4 % (11.6-14.6); RBC Distribution Width SD 41.4 fl (35.1-43.9); Red Blood Count 4.93 M/mm3 (4.2-5.4); White Blood Count 6.7 K/mm3 (4.4-11.0)
[2019-12-23 23:11] LABS: Blood Gas Specimen Type VEN; VBG BASE EXCESS -1 mmol/L (-1.0-3.5); VBG Bicarbonate 24 mmol/L (22-26); VBG PO2 51 mmHg (25-40); VBG SO2 87 % (50-70); VBG pCO2 35.5 mmHg (41-51); VBG pH 7.43 (7.32-7.42)
[2019-12-23] MEDS: Acetaminophen 325 MG Tablet 650 MG PO (23:12)
[2019-12-23] MEDS: 0.9% Normal Saline 1,000 ML 1000 ML IV (23:13)
[2019-12-23] MEDS: Ondansetron 4 MG/2 ML Vial IV (23:13)
[2019-12-23 23:20] LABS: Prothrombin Time (Protime)PT. 12.3 SECONDS (11.7-14.9)
[2019-12-23 23:21] LABS: Partial Thromboplast Time 23.9 Seconds (24.1-36.2)
[2019-12-23 23:26] VITALS: BP 139/95; PULSE 106; RESP 18; O2SAT 99
[2019-12-23 23:33] LABS: Bacteria 0 SEEN /hpf (None Seen); Mucous, Urine 0 SEEN /hpf (<or=2+); Red Blood Cells-Urine 0 SEEN /hpf (0-5); Squamous Epithelial Cells - UA 0 SEEN /hpf (5-10); White Blood Cells 0 SEEN /hpf (0-5)
[2019-12-23 23:33] LABS: ALB/GLOB Ratio 0.9 RATIO (0.9-2.4); AST(SGOT) 66 U/L (15-37); Alanine Aminotransfer ALT/SGPT 102 U/L (13-56); Albumin, Serum 3.8 g/dL (3.2-5.0); Alkaline Phosphatase 143 U/L (45-117); Anion Gap 7 (5-15); BUN 10 mg/dL (7-18); BUN/Creat Ratio 12.2 RATIO (10-20); Chloride 106 mmol/L (98-107); Creatinine, Serum 0.82 mg/dL (0.55-1.02); EST Glomerular Filtration Rate 84 mL/min (>60); Est Glom Filt Rate - Afr Amer 102 mL/min (>60); Globulin 4.2 g/dL (2.2-4.2); Glucose 340 mg/dL (74-106); Potassium 3.6 mmol/L (3.5-5.1); Sodium Level 138 mmol/L (136-145)
[2019-12-23 23:34] LABS: Color, Urine Yellow (Yellow); Glucose, Dipstick 1000 mg/dl (Normal); Ketone-Dipstick Negative (Negative); Leukocyte Esterase-Dipstick 25 /ul (Negative); Nitrite-Dipstick Negative (Negative); Occult Blood-Urine Negative /ul (Negative); Protein-Dipstick Negative (Negative); Specific Gravity, Urine 1.015 (1.002-1.030); Urine Bilirubin Dipstick Negative (Negative); Urine Clarity Clear (Clear); Urine Urobilinogen Normal (Normal)
[2019-12-24 00:06] VITALS: BP 109/66; PULSE 100; RESP 19; O2SAT 99
[2019-12-24 00:52] VITALS: BP 121/83; PULSE 94; RESP 21; TEMP 37.3; O2SAT 98
[2019-12-24] MEDS: 0.9% Normal Saline 1,000 ML 1000 ML IV (00:52)
[2019-12-24 01:09] VITALS: BP 139/83; PULSE 89; RESP 15; O2SAT 98
[2019-12-24 02:10] VITALS: BP 112/87; PULSE 94; RESP 25; O2SAT 96
[2019-12-24 02:13] VITALS: BP 112/82; PULSE 90; RESP 16; O2SAT 100
[2019-12-24 03:15] LABS: Reflex Lactate? Y
--- NOTE | 2019-12-24 04:34 | ED.RN ---
see down time charting from 0200 until discharge
--- NOTE | 2019-12-24 05:15 | ED.DCSUM_ITS ---
History of Present Illness Chief Complaint: Weakness Narrative: Patient presenting secondary to generalized malaise and shortness of breath. Patient has a underlying history of Marcus syndrome, diabetes, hyperventilation, coarctation of the aorta. Patient tells me that today she has been feeling generally weak and tired. Patient states that she feels short of breath associated with this. She reports mild cough. She denies any objective fevers, she does have some mild chills. No nausea vomiting or diarrhea. No abdominal pain. No chest pain associated with this. Patient denies any history of DVT or PE. She denies any sick contacts. Review of systems otherwise negative. Past Medical History - Allergies and Home Meds Allergies/Adverse Reactions: Allergies doxycycline Adverse Reaction (Verified 08/18/19 23:51) Abd cramps/diarrhea Primary Care Physician: Yina Brock MD [Primary Care Provider] - Prior records reviewed: Yes Past Medical History: - - Marcus syndrome, diabetes, hyperventilation, coarctation of the aorta Surgical History: appendectomy, - - Catheterization-cardiac Smoking Status: Never smoker - Family History Maternal Family History: Reports: Diabetes Review of Systems All systems negative except as indicated General: Reports: Malaise Eyes: Denies: Visual changes - bilaterally, Diplopia ENT: Denies: Rhinorrhea, Sore throat Cardiovascular: Denies: Chest pain, Palpitations Respiratory: Reports: Dyspnea, Cough Gastrointestinal: Denies: Abdominal pain, Nausea, Vomiting, Diarrhea, Melena, Hematochezia Genitourinary: Denies: Dysuria, Hematuria, Frequency Musculoskeletal: Denies: Back pain, Extremity Pain Skin: Denies: Rash, Wounds Neurological: Denies: Headache, Weakness, Numbness Physical Exam Vital Signs/Narrative: Vital Signs Pulse Resp BP Pulse Ox 12/24/19 02:13 90 16 112/82 H 100 12/24/19 02:10 94 25 H 112/87 H 96 Inital Vital Signs reviewed: Yes General: Well nourished, Well developed, Obese, - - Mildly distressed and tachypneic Head: Normocephalic, Atraumatic Eyes: Perrl, EOMI ENT: Moist mucous membranes, No rhinorrhea Neck: Supple, Nontender Cardiovascular: Regular rhythm, Tachycardia, - - I did not appreciate a murmur on this patient's physical exam. 2+ radial pulses bilaterally symmetric Respiratory: - - Patient is tachypneic with clear lung sounds Abdomen: Soft, Nontender, Nondistended, Normal bowel sounds Back: Nontender, Normal Inspection Extremities: Nontender, No edema Skin: Normal color, No rash Neurological: Alert, Oriented x3, Cranial nerves II-XII grossly intact, Normal Strength, Normal Sensation Psychological: - - Patient is anxious Diagnostic/Tx/Re-eval Clinical Impression(s) from Imaging Studies Chest X-Ray 12/23/19 22:41 IMPRESSION: Normal x-ray examination of the chest. Electronically Signed: Vadim Eli MD at 23:47 EDT Tel , Service support , Laboratory Data 12/23/19 12/23/19 12/23/19 22:50 23:00 23:00 WBC 6.7 RBC 4.93 Hgb 13.6 Hct 42.0 MCV 85.2 MCH 27.6 MCHC 32.4 RDW Std Deviation 41.4 RDW Coeff of Abdirahman 13.4 Plt Count 258 MPV 9.8 Immature Gran % (Auto) 1.000 H Neut % (Auto) 69.9 Lymph % (Auto) 20.9 [place] % (Auto) 6.3 Eos % (Auto) 1.5 Baso % (Auto) 0.4 Absolute Neuts (auto) 4.7 Absolute Lymphs (auto) 1.40 Nucleated RBC % 0 PT 12.3 INR 1.0 APTT 23.9 L Specimen Type VBG pH VBG pO2 VBG HCO3 VBG O2 Sat (Calc) VBG Base Excess POC Mix VBG pCO2 Pt Tmp Sodium Potassium Chloride Carbon Dioxide Anion Gap BUN Creatinine Estim Creat Clear Calc Est GFR (MDRD) Af Amer Est GFR (MDRD) Non-Af BUN/Creatinine Ratio Glucose Lactic Acid Calcium Total Bilirubin AST ALT Alkaline Phosphatase Troponin I Total Protein Albumin Globulin Albumin/Globulin Ratio Urine Color Urine Clarity Urine pH Ur Specific [place] Urine Protein Urine Glucose (UA) Urine Ketones Urine Occult Blood Urine Nitrite Urine Bilirubin Urine Urobilinogen Ur Leukocyte Esterase Urine RBC Urine WBC Ur Squamous Epith Cells Urine Bacteria Urine Mucus COVID-19 (TOBIAS) Not Detected 12/23/19 12/23/19 12/23/19 23:00 23:00 23:03 WBC RBC Hgb Hct MCV MCH MCHC RDW Std Deviation RDW Coeff of Abdirahman Plt Count MPV Immature Gran % (Auto) Neut % (Auto) Lymph % (Auto) [place] % (Auto) Eos % (Auto) Baso % (Auto) Absolute Neuts (auto) Absolute Lymphs (auto) Nucleated RBC % PT INR APTT Specimen Type CARLEY VBG pH 7.43 H VBG pO2 51 H VBG HCO3 24 VBG O2 Sat (Calc) 87 H VBG Base Excess -1 POC Mix VBG pCO2 Pt Tmp 35.5 L Sodium 138 Potassium 3.6 Chloride 106 Carbon Dioxide 25.0 Anion Gap 7 BUN 10 Creatinine 0.82 Estim Creat Clear Calc 181.40 Est GFR (MDRD) Af Amer 102 Est GFR (MDRD) Non-Af 84 BUN/Creatinine Ratio 12.2 Glucose 340 H Lactic Acid 3.0 H* Calcium 10.0 Total Bilirubin 0.60 AST 66 H ALT 102 H Alkaline Phosphatase 143 H Troponin I < 0.015 Total Protein 8.0 Albumin 3.8 Globulin 4.2 Albumin/Globulin Ratio 0.9 Urine Color Urine Clarity Urine pH Ur Specific [place] Urine Protein Urine Glucose (UA) Urine Ketones Urine Occult Blood Urine Nitrite Urine Bilirubin Urine Urobilinogen Ur Leukocyte Esterase Urine RBC Urine WBC Ur Squamous Epith Cells Urine Bacteria Urine Mucus COVID-19 (TOBIAS) 12/23/19 23:25 WBC RBC Hgb Hct MCV MCH MCHC RDW Std Deviation RDW Coeff of Abdirahman Plt Count MPV Immature Gran % (Auto) Neut % (Auto) Lymph % (Auto) [place] % (Auto) Eos % (Auto) Baso % (Auto) Absolute Neuts (auto) Absolute Lymphs (auto) Nucleated RBC % PT INR APTT Specimen Type VBG pH VBG pO2 VBG HCO3 VBG O2 Sat (Calc) VBG Base Excess POC Mix VBG pCO2 Pt Tmp Sodium Potassium Chloride Carbon Dioxide Anion Gap BUN Creatinine Estim Creat Clear Calc Est GFR (MDRD) Af Amer Est GFR (MDRD) Non-Af BUN/Creatinine Ratio Glucose Lactic Acid Calcium Total Bilirubin AST ALT Alkaline Phosphatase Troponin I Total Protein Albumin Globulin Albumin/Globulin Ratio Urine Color Yellow Urine Clarity Clear Urine pH 6.0 Ur Specific [place] 1.015 Urine Protein Negative Urine Glucose (UA) 1000 H Urine Ketones Negative Urine Occult Blood Negative Urine Nitrite Negative Urine Bilirubin Negative Urine Urobilinogen Normal Ur Leukocyte Esterase 25 H Urine RBC 0 SEEN Urine WBC 0 SEEN Ur Squamous Epith Cells 0 SEEN Urine Bacteria 0 SEEN Urine Mucus 0 SEEN COVID-19 (TOBIAS) - EKG Initial EKG Interpretation: - - Sinus tachycardia with a rate of [address] segments, normal T waves, septal Q waves, normal CT and QTc intervals no evidence of acute ischemia or arrhythmia - Medical Decision Making Patient presented secondary to shortness of breath she was tachycardic and tachypneic upon exam I was concerned for the possibility of infection given her presence of a cough IV was established patient was given fluid resuscitation. CBC unremarkable, chemistry shows no significant electrolyte derangements normal anion gap no evidence of acidosis. Lactic acid modestly elevated at 3.0. Patient's venous blood gas was within normal limits with a normal pH, low PCO2. Urinalysis was negative for infection. Chest x-ray by my personal review as well as radiology also shows no evidence of acute pathology. Coronavirus test was obtained and this patient was found to be negative. I reviewed the patient's records, she actually has multiple similar presentations where she will present with tachypnea and tachycardia will have a broad work-up and then ultimately is discharged. On my repeat evaluation of the patient she was actually resting comfortably with a heart rate in the 80s. Patient may be has an element of a viral illness, but this also seems to be compounded with hyperventilation and tachycardia and likely anxiety. I do not feel that the patient requires admission at this point. She was given reassurance. I did inform her to follow-up with her primary care physician. She was discharged in improved condition. ED Disposition - Plan for ED Patient: Disposition: Home or Assisted Living Diagnosis: Dyspnea, Anxiety Instructions: ED Dyspnea Referrals: Yina Brock MD [Primary Care Provider] - 3-5 Days
[2019-12-24 09:23] LABS: VBG Oxygen Content 25 mmol/L (23-33)
== END 2019-12-24 02:13 | disposition home or self-care (01) ==
PROVIDERS: Emergency Provider Emergency Medicine; PCP Internal Medicine
DX: R06.00 Dyspnea, unspecified (principal); F41.9 Anxiety disorder, unspecified; E66.9 Obesity, unspecified; R06.4 Hyperventilation; E11.9 Type 2 diabetes mellitus without complications; Q96.9 Turner's syndrome, unspecified; Q25.1 Coarctation of aorta; Z79.82 Long term (current) use of aspirin; Z79.899 Other long term (current) drug therapy
CPT/HCPCS: 71045; 80053; 81001; 82803; 83605; 84484; 85025; 85610; 85730; 87040; 87635; 93005; 96361; 96374; 99283; 99285; J7030; A4216; J2405; U0003

== ENCOUNTER → 2020-01-10 12:50 | Outpatient (CLI) | payer MEDICAID, SELFPAY ==
[2019-12-23 22:19] VITALS: BMI 55.3
== END ==
PROVIDERS: PCP Internal Medicine; Referring Provider Clinical Nurse Specialist; Visit Provider Clinical Nurse Specialist
DX: R00.2 Palpitations (principal)
CPT/HCPCS: 93225; 93226

== ENCOUNTER 2020-03-25 20:23 | Emergency (ER) | payer MEDICAID, SELFPAY ==
[2020-03-25] VITALS (8 sets, daily range): BP systolic 108–163; BP diastolic 66–133; PULSE 101–113; RESP 18–24; TEMP 36.9–37.9; O2SAT 98–100; BMI 46.7
--- NOTE | 2020-03-25 20:42 | EKG12_ITS ---
Test Reason : DYSRHYTHMIA Blood Pressure : / mmHG Vent. Rate : 106 BPM Atrial Rate : 106 BPM P-R Int : 176 ms QRS Dur : 076 ms QT Int : 346 ms P-R-T Axes : 032 -04 032 degrees QTc Int : 459 ms Sinus tachycardia Minimal voltage criteria for LVH, may be normal variant Septal infarct (cited on or before 25-MAY-2019) Abnormal ECG Confirmed by SUSANA HESS, APOLINAR ([id number]), editor at large DOMINIQUE CANSECO ([id number]) on 03/30/2020 11:03:50 AM Referred By: JUAN Confirmed By:JOSE ALBERTO MEZA MD
--- NOTE | 2020-03-25 21:10 | ED.DCSUM_ITS ---
History of Present Illness Chief Complaint: Shortness of Breath Informant: Patient, EMS Onset: Today Activity at onset: - - Gradual onset Timing: Continuous Quality: - - Short of breath Current Severity: Severe Maximum Severity: Severe Worsened by: Nothing Relieved by: Nothing Associated Symptoms: Cough, Fever Chest Pain: - - Heaviness substernal Narrative: Patient states she has been having shortness of breath off and on for months may be years, she has several cardiac congenital and valvular abnormalities, see the problem list below. She states today she noticed having cough, chest discomfort, and increasing shortness of breath along with a fever, she is feeling worse as the day goes on, and very malaised. She has chronic swelling in her legs that is mild and she does not think it is any worse than usual. 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 (2) Congenital bicuspid aortic valve Status: Chronic (3) Hypothyroidism Status: Chronic (4) Obstructive sleep apnea of adult Status: Chronic (5) Pseudocoarctation of aorta, congenital Status: Chronic (6) Tachycardia Status: Chronic (7) Marcus syndrome Status: Chronic Past Medical History - Allergies and Home Meds Allergies/Adverse Reactions: Allergies doxycycline Adverse Reaction (Verified 03/25/20 20:28) Abd cramps/diarrhea Primary Care Physician: Yina Brock MD [Primary Care Provider] - Surgical History: appendectomy, - - Catheterization-cardiac Smoking Status: Never smoker - Family History Maternal Family History: Reports: Diabetes Review of Systems General: Reports: Chills, Fever, Malaise. Denies: Sweats Eyes: Denies: Visual changes - bilaterally, Diplopia ENT: Reports: Rhinorrhea - Mild congestion. Denies: Bilateral ear pain, Sore throat Cardiovascular: Reports: Chest pain. Denies: Palpitations Respiratory: Reports: Dyspnea, Cough. Denies: Sputum Gastrointestinal: Reports: Diarrhea - Couple days ago but resolved. Denies: Abdominal pain, Nausea, Vomiting, Melena, Hematochezia Genitourinary: Denies: Dysuria, Hematuria, Frequency Musculoskeletal: Reports: Myalgias, Swelling - Chronic lower extremities, no different. Denies: Back pain, Extremity Pain Skin: Denies: Rash, Wounds Neurological: Denies: Headache, Weakness, Numbness Physical Exam Vital Signs/Narrative: Vital Signs Temp Pulse Resp BP Pulse Ox 03/25/20 20:24 100.3 F H 110 H 19 H 135/91 H 99 Inital Vital Signs reviewed: Yes General: Well nourished, Well developed, No Acute Distress - But tachypneic and appears ill Head: Normocephalic, Atraumatic Eyes: Perrl, EOMI ENT: Moist mucous membranes, No rhinorrhea. Negative for: Sinus tenderness Neck: Supple, Nontender, No lymphadenopathy, No JVD Cardiovascular: Regular rate, Regular rhythm, No murmurs, Tachycardia Respiratory: No distress, Chest nontender, Wheezing - Slight end expiratory. Negative for: Rales, Rhonchi Abdomen: Soft, Nontender, Nondistended, Normal bowel sounds Back: Nontender, Normal Inspection Extremities: Nontender, No edema. Negative for: Calf Tenderness Skin: Normal color, No rash, No Trauma Neurological: Alert, Oriented x3, Cranial nerves II-XII grossly intact, Normal Strength, Normal Sensation Psychological: Normal affect, Normal Mood Diagnostic/Tx/Re-eval Impressions Chest X-Ray 03/25/20 21:12 IMPRESSION: Normal x-ray examination of the chest. Electronically Signed: Patel Deleon MD at 21:40 EST , Service support , Chest CTA 03/25/20 22:55 IMPRESSION: Normal CTA chest examination, without a demonstrated pulmonary embolism or arterial dissection. Electronically Signed: Patel Deleon MD at 0:06 EST , Service support , 03/25/20 21:12 Chest 1 View (Portable) [RAD] Stat 03/25/20 22:55 CTA Chest W/WO Contrast [CT] Stat 03/25/20 20:33 Mucosa - Nasopharyngeal SARS-CoV-2 Antigen (Rapid) - Final Laboratory Results 0103/25/20 03/25/20 21:20 21:20 21:20 WBC 7.2 RBC 4.49 Hgb 12.7 Hct 37.8 MCV 84.2 MCH 28.3 MCHC 33.6 RDW Std Deviation 40.4 RDW Coeff of Abdirahman 13.2 Plt Count 199 MPV 10.1 Immature Gran % (Auto) 0.600 Neut % (Auto) 87.4 H Lymph % (Auto) 4.6 L [place] % (Auto) 6.4 Eos % (Auto) 0.6 Baso % (Auto) 0.4 Absolute Neuts (auto) 6.3 Absolute Lymphs (auto) 0.33 L Nucleated RBC % 0 Differential Comment SCANNED PT 12.9 INR 1.0 APTT 24.0 L D-Dimer Quant (PE/DVT) Sodium 139 Potassium 3.5 Chloride 104 Carbon Dioxide 27.0 Anion Gap 8 BUN 6 L Creatinine 0.74 Estim Creat Clear Calc 174.21 Est GFR (MDRD) Af Amer 114 Est GFR (MDRD) Non-Af 94 BUN/Creatinine Ratio 8.1 L Glucose 163 H Lactic Acid Calcium 9.6 Total Bilirubin 0.70 AST 56 H ALT 99 H Alkaline Phosphatase 124 H Troponin I < 0.015 B-Natriuretic Peptide Total Protein 7.7 Albumin 3.8 Globulin 3.9 Albumin/Globulin Ratio 1.0 Urine Color Urine Clarity Urine pH Ur Specific [place] Urine Protein Urine Glucose (UA) Urine Ketones Urine Occult Blood Urine Nitrite Urine Bilirubin Urine Urobilinogen Ur Leukocyte Esterase Urine RBC Urine WBC Ur Squamous Epith Cells Urine Bacteria Urine Mucus 03/25/20 03/25/20 03/25/20 21:20 21:20 21:20 WBC RBC Hgb Hct MCV MCH MCHC RDW Std Deviation RDW Coeff of Abdirahman Plt Count MPV Immature Gran % (Auto) Neut % (Auto) Lymph % (Auto) [place] % (Auto) Eos % (Auto) Baso % (Auto) Absolute Neuts (auto) Absolute Lymphs (auto) Nucleated RBC % Differential Comment PT INR APTT D-Dimer Quant (PE/DVT) <= 0.27 Sodium Potassium Chloride Carbon Dioxide Anion Gap BUN Creatinine Estim Creat Clear Calc Est GFR (MDRD) Af Amer Est GFR (MDRD) Non-Af BUN/Creatinine Ratio Glucose Lactic Acid 3.4 H* Calcium Total Bilirubin AST ALT Alkaline Phosphatase Troponin I B-Natriuretic Peptide 72.3 Total Protein Albumin Globulin Albumin/Globulin Ratio Urine Color Urine Clarity Urine pH Ur Specific [place] Urine Protein Urine Glucose (UA) Urine Ketones Urine Occult Blood Urine Nitrite Urine Bilirubin Urine Urobilinogen Ur Leukocyte Esterase Urine RBC Urine WBC Ur Squamous Epith Cells Urine Bacteria Urine Mucus 03/25/20 22:09 WBC RBC Hgb Hct MCV MCH MCHC RDW Std Deviation RDW Coeff of Abdirahman Plt Count MPV Immature Gran % (Auto) Neut % (Auto) Lymph % (Auto) [place] % (Auto) Eos % (Auto) Baso % (Auto) Absolute Neuts (auto) Absolute Lymphs (auto) Nucleated RBC % Differential Comment PT INR APTT D-Dimer Quant (PE/DVT) Sodium Potassium Chloride Carbon Dioxide Anion Gap BUN Creatinine Estim Creat Clear Calc Est GFR (MDRD) Af Amer Est GFR (MDRD) Non-Af BUN/Creatinine Ratio Glucose Lactic Acid Calcium Total Bilirubin AST ALT Alkaline Phosphatase Troponin I B-Natriuretic Peptide Total Protein Albumin Globulin Albumin/Globulin Ratio Urine Color Yellow Urine Clarity Clear Urine pH 8.0 Ur Specific [place] 1.015 Urine Protein 15 H Urine Glucose (UA) 50 H Urine Ketones 15 H Urine Occult Blood Negative Urine Nitrite Negative Urine Bilirubin Negative Urine Urobilinogen Normal Ur Leukocyte Esterase 100 H Urine RBC 0 SEEN Urine WBC 0-5 SEEN Ur Squamous Epith Cells 5-10 SEEN Urine Bacteria RARE Urine Mucus 0 SEEN - Rhythm Strip Rhythm Strip: Sinus Tach Rate: 106 Ectopy: None - EKG Initial EKG Interpretation: No Acute Injury Pattern, Sinus Tachycardia - Medical Decision Making Initially septic work-up was obtained since patient had a fever of 100.3 and she was given Tylenol. This came down. She had a lactate that is 3.4, but the rest of her work-up really is unremarkable. She has no bandemia or hypoxemia. She was given a few puffs from an albuterol inhaler before her Covid test came back negative, she said it did not seem to do a whole lot. She did not have an anion gap acidosis to suggest that she was tachypneic from an acidotic state. She is better appearing on reevaluation. Lungs are still clear, CT angiography was performed because of the concern for pulmonary embolus although her D-dimer was negative, it was performed anyway in order to also rule out occult infiltrate. The CTA was negative for everything acute and was essentially normal. At this time, she states that she is feeling better, possibly from treating her fever and possibly because her heart rate came down which is now 106, with a blood pressure 96/68. She was given fluids, this did not make her feel worse, and she has no orthopnea to suggest congestive heart failure in relation to her congenital abnormalities. 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 She states now her dyspnea is close to what she deals with chronically. She has had an echocardiogram and never been diagnosed with congestive heart failure, and has never been put on diuretics for any extended period of time. I discussed options here including being transferred to [facility] or going home, she feels comfortable going home and since that is the case I am comfortable discharging her. We will try an albuterol nebulizer treatment first, and we will also send an outpatient PCR Covid in case the rapid is a false negative. She is on no immunocompromising medications and at this time I see no indication for empiric antibiotics. Discussed all this with her and she is comfortable with that plan and we discussed reasons to return. Of note, blood and urine cultures were sent. 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
--- NOTE | 2020-03-25 21:12 | RAD_ITS ---
STUDY: X-RAY CHEST REASON FOR EXAM: Female, 35 years old. SOB, FEVER, FATIGUED, CP, N/V, COUGH X 3 DAYS. TECHNIQUE: Single frontal view of the chest. COMPARISON: 12/23/2019 FINDINGS: The lungs are clear and expanded. There is no demonstrated pleural abnormality. Normal size heart. Normal mediastinum and tracy. Normal visualized pulmonary arteries. Normal visualized aortic arch and descending thoracic aorta. Normal visualized thoracic spine. Normal visualized ribs, clavicles, and shoulders. There is no demonstrated abnormality of the visualized soft tissue structures of the upper abdomen. RAD/Chest 1 View (Portable) IMPRESSION: Normal x-ray examination of the chest. Electronically Signed: Patel Deleon MD at 21:40 EST , Service support ,
[2020-03-25] MEDS: 0.9% Normal Saline 1,000 ML 100 ML IV (21:27)
[2020-03-25] MEDS: Acetaminophen 325 MG Tablet 650 MG PO (21:28)
[2020-03-25 21:41] LABS: Absolute Lymphocyte Count 0.33 X10^3/uL (0.83-4.51); Absolute Neutrophil Count 6.3 X10^3/uL (2.0-7.7); Basophil# 0.03 X10^3/uL; Basophil% 0.4 % (0-1); Eosinophil# 0.04 X10^3/uL; Eosinophils% 0.6 % (0-5); Hematocrit 37.8 % (37-47); Hemoglobin 12.7 g/dL (12.0-15.0); Lymphocyte # 0.33 X10^3/ul (4.0); Lymphocyte % 4.6 % (19-41); Mean Corp Hgb Conc 33.6 g/dL (32-36); Mean Corpuscular Hgb 28.3 pg (27.0-32.0); Mean Corpuscular Volume 84.2 fL (81-99); Mean Platelet Vol. 10.1 fl (6.2-12.0); Monocyte# 0.46 X10^3/uL; Monocyte% 6.4 % (0-10); NRBC Flagged by Analyzer 0 % (0-5); Neutrophil # 6.31 X10^3/uL (2.7-7.7); Neutrophil % 87.4 % (47-70); POSITIVE DIFFERENTIAL YES; Platelet Count 199 K/mm3 (150-450); RBC Distribution Width CV 13.2 % (11.6-14.6); RBC Distribution Width SD 40.4 fl (35.1-43.9); Red Blood Count 4.49 M/mm3 (4.2-5.4); White Blood Count 7.2 K/mm3 (4.4-11.0)
[2020-03-25 21:51] LABS: Prothrombin Time (Protime)PT. 12.9 SECONDS (11.7-14.9)
[2020-03-25 21:54] LABS: Differential Indicated SCAN CRITERIA MET
[2020-03-25 21:58] LABS: BNP,B-Type NATRIURETIC PEPTIDE 72.3 pg/mL (0-100)
[2020-03-25 22:02] LABS: AST(SGOT) 56 U/L (15-37); Alanine Aminotransfer ALT/SGPT 99 U/L (13-56); Albumin, Serum 3.8 g/dL (3.2-5.0); Alkaline Phosphatase 124 U/L (45-117); Anion Gap 8 (5-15); BUN 6 mg/dL (7-18); BUN/Creat Ratio 8.1 RATIO (10-20); Calcium,Total 9.6 mg/dL (8.5-10.1); Chloride 104 mmol/L (98-107); Creatinine, Serum 0.74 mg/dL (0.55-1.02); EST Glomerular Filtration Rate 94 mL/min (>60); Est Glom Filt Rate - Afr Amer 114 mL/min (>60); Estimated Creatinine Clearance 174.21 ml/min; Globulin 3.9 g/dL (2.2-4.2); Glucose 163 mg/dL (74-106); Potassium 3.5 mmol/L (3.5-5.1); Protein, Total 7.7 g/dL (6.4-8.2); Sodium Level 139 mmol/L (136-145)
[2020-03-25 22:03] LABS: Differential Comment SCANNED
[2020-03-25 22:18] LABS: Lactic Acid 3.4 mmol/L (0.4-1.9)
[2020-03-25 22:20] LABS: Mucous, Urine 0 SEEN /hpf (<or=2+); Red Blood Cells-Urine 0 SEEN /hpf (0-5)
[2020-03-25 22:42] LABS: Color, Urine Yellow (Yellow); Glucose, Dipstick 50 mg/dl (Normal); Ketone-Dipstick 15 mg/dl (Negative); Leukocyte Esterase-Dipstick 100 /ul (Negative); Nitrite-Dipstick Negative (Negative); Occult Blood-Urine Negative /ul (Negative); Protein-Dipstick 15 mg/dl (Negative); Specific Gravity, Urine 1.015 (1.002-1.030); Urine Bilirubin Dipstick Negative (Negative); Urine Clarity Clear (Clear); Urine Urobilinogen Normal (Normal)
[2020-03-25 22:48] LABS: White Blood Cells 0-5 SEEN /hpf (0-5)
[2020-03-25 22:49] LABS: Bacteria RARE /hpf (None Seen); Squamous Epithelial Cells - UA 5-10 SEEN /hpf (5-10)
--- NOTE | 2020-03-25 22:55 | CT_ITS ---
STUDY: CTA CHEST REASON FOR EXAM: Female, 35 years old. SOB,CHEST PAIN,FEVER,COUGH X 3 DAYS,ELEVATED BP,COVID TEST WAS NEGATIVE -- HX:HTN,HLD,ASTHMA,DIABETES,HYPOTHYROID.RIVERA''S SYNDROME,AORTIC STENOSIS RADIATION DOSAGE (If Supplied By Facility): CTDIvol = ( 13.85 ) mGy, DLP = ( 474.85 ) mGycm TECHNIQUE: The examination was performed with the intravenous administration of IV 100mL Isovue-370. Post-processing of the angiographic images was performed, with multiplanar reformation and 3D reconstruction. Individualized dose optimization techniques were used for this CT. COMPARISON: Chest x-ray 03/25/[address] chest 08/18/2019. FINDINGS: Normal enhancement of the main pulmonary artery and right and left pulmonary arteries. Normal enhancement of the bilateral peripheral pulmonary arteries. There is no demonstrated pulmonary embolism. Bovine arch possible aortic spindle. There is no demonstrated aortic dissection. Normal heart and pericardium. Normal mediastinum. Normal hilar regions. Normal visualized trachea and bronchi. The lungs are well expanded. Normal pulmonary parenchyma. Normal pleura. Normal chest wall structures. Normal osseous structures. Normal visualized upper abdomen. CT/CTA Chest W/WO Contrast IMPRESSION: Normal CTA chest examination, without a demonstrated pulmonary embolism or arterial dissection. Electronically Signed: Patel Deleon MD at 0:06 EST , Service support ,
[2020-03-25 23:25] LABS: D-Dimer Quantitative (DVT/PE) <= 0.27 FEU/ug/m (0.27-0.49)
[2020-03-26] VITALS: BP 96/68; PULSE 107; RESP 24; TEMP 36.7; O2SAT 99
[2020-03-26 00:34] VITALS: PULSE 114; RESP 26
[2020-03-26] MEDS: Albuterol 2.5 MG/3 ML VIAL.NEB. INHALATION (00:34)
[2020-03-26 01:36] LABS: Reflex Lactate? Y
== END 2020-03-26 00:51 | disposition home or self-care (01) ==
PROVIDERS: Emergency Provider Emergency Medicine; PCP Internal Medicine
DX: R06.00 Dyspnea, unspecified (principal); R50.9 Fever, unspecified; J34.89 Other specified disorders of nose and nasal sinuses; R05 Cough; M79.10 Myalgia, unspecified site; M79.89 Other specified soft tissue disorders; R09.81 Nasal congestion; E03.9 Hypothyroidism, unspecified; Q96.9 Turner's syndrome, unspecified; Q23.1 Congenital insufficiency of aortic valve; Q25.1 Coarctation of aorta; G47.33 Obstructive sleep apnea (adult) (pediatric); Z79.82 Long term (current) use of aspirin; Z79.899 Other long term (current) drug therapy
CPT/HCPCS: 71045; 71275; 80053; 81001; 83605; 83880; 84484; 85025; 85379; 85610; 85730; 87040; 87086; 87088; 87426; 87635; 93005; 94640; 99285; J7030; Q9967; U0005; A4216; U0003

== ENCOUNTER 2020-06-01 19:15 | Emergency (ER) | payer MEDICAID, SELFPAY ==
[2020-03-25 20:24] VITALS: BMI 46.7
[2020-06-01 19:16] VITALS: BP 129/87; PULSE 95; RESP 16; TEMP 36.5; O2SAT 98; BMI 42.6
--- NOTE | 2020-06-01 19:42 | ED.DCSUM_ITS ---
History of Present Illness Chief Complaint: General Illness Informant: Patient Onset: Weeks - 1.5 weeks Context: Sudden Onset Timing: Continuous Quality: Malaise, shortness of breath, aches and tingling pain Location: Generalized Current Severity: Mild Maximum Severity: Moderate Worsened by: Nothing Relieved by: Nothing Associated Symptoms: No other symptoms Narrative: Patient is a 35-year-old woman with multiple medical problems who presents with tingling-like sensation that intermittently occurs She has had intermittent nausea without vomiting or diarrhea. She does complain of shortness of breath. She denies cough. She denies rhinorrhea, congestion or postnasal drainage. She denies sore throat. She denies pleuritic pain. She denies history of VTE and has no risk factors. She denies leg pain, swelling discoloration. She denies black or maroon-colored stool. She has had no ill contacts. She is without children. She states she does not smoke but has been exposed to her mother smoking. She denies alcohol use. She denies history of MS. There is no family history of MS. Prior similar symptoms: No Recent Illness/Hospitalization: No - Past Medical History (1) Upper GI bleed Status: Acute (2) Congenital bicuspid aortic valve Status: Chronic (3) Hypothyroidism Status: Chronic (4) Obstructive sleep apnea of adult Status: Chronic (5) Pseudocoarctation of aorta, congenital Status: Chronic (6) Tachycardia Status: Chronic (7) Marcus syndrome Status: Chronic (8) Chest pain at rest Status: Resolved (9) Shortness of breath at rest Status: Resolved Past Medical History - Allergies and Home Meds Allergies/Adverse Reactions: Allergies doxycycline Adverse Reaction (Verified 06/01/20 19:20) Abd cramps/diarrhea Primary Care Physician: Yina Brock MD [Primary Care Provider] - Prior records reviewed: Yes Surgical History: appendectomy, - - Catheterization-cardiac Lives: Spouse/ Significant Other Smoking Status: Never smoker Alcohol: None Drugs: None - Family History Maternal Family History: Reports: Diabetes Review of Systems General: Denies: Chills, Fever, Malaise, Subjective Eyes: Denies: Visual changes - bilaterally, Blurred Vision - bilaterally ENT: Denies: Bilateral ear pain, Rhinorrhea, Sore throat Cardiovascular: Denies: Chest pain, Palpitations, Heart racing Respiratory: Reports: Dyspnea. Denies: Cough, Sputum, Dyspnea on exertion, Paroxysmal nocturnal dyspnea Gastrointestinal: Reports: Abdominal pain, Nausea. Denies: Vomiting, Diarrhea, Constipation, Melena, Hematochezia Genitourinary: Denies: Dysuria, Hematuria, Frequency Musculoskeletal: Reports: Back pain. Denies: Myalgias, Arthralgias, Neck pain, Swelling, Extremity Pain, -, - Skin: Denies: Rash, Abscess, Abrasions Neurological: Reports: Parasthesia - [place] tingling sensation Endocrine: Denies: Polyuria, Polydipsia Hematologic: Denies: Easy bruising, Easy bleeding Allergy: Denies: Uticaria Physical Exam Vital Signs/Narrative: Vital Signs Temp Pulse Resp BP Pulse Ox 06/01/20 19:16 97.7 F L 95 16 129/87 H 98 Inital Vital Signs reviewed: Yes General: Well nourished, Well developed, Obese, No Acute Distress Head: Normocephalic, Atraumatic Eyes: Perrl, EOMI. Negative for: Pale conjunctiva, Scleral icterus ENT: Moist mucous membranes, No rhinorrhea, TM's clear Neck: Supple, Nontender, No lymphadenopathy, No JVD Cardiovascular: Regular rate, Regular rhythm, No murmurs, Normal S1, Normal S2 Respiratory: No distress, CTA bilaterally, Chest nontender Abdomen: Soft, Nontender, Nondistended, Normal bowel sounds, No masses. Negative for: Hepatomegaly, Splenomegaly, Mass, Pulsatile mass Rectal: Deferred Back: Nontender, Normal Inspection. Negative for: CVA tenderness Extremities: Nontender, No edema Skin: Normal color, No rash, No Trauma. Negative for: Cyanosis, Diaphoresis, Jaundice Neurological: Alert, Oriented x3, Cranial nerves II-XII grossly intact, Normal Strength, Normal Sensation, Normal DTR Psychological: Normal Mood, Depressed Diagnostic/Tx/Re-eval Chest X-Ray - ED: 2 View, Read by ED Physician, Normal, Heart, Lungs, Mediastinu m, Bony Structures, No Acute Disease, Chronic Changes - Unchanged from March 25, 2020. Impressions Chest X-Ray 06/01/20 20:18 IMPRESSION: No acute radiographic abnormalities. Electronically Signed: Feroz Kennedy MD at 20:32 EDT Tel , Service support , 06/01/20 20:18 Chest PA and Lateral [RAD] Stat Laboratory Results 06/01/20 06/01/20 06/01/20 19:53 19:53 20:03 WBC 7.4 RBC 4.58 Hgb 13.0 Hct 39.8 MCV 86.9 MCH 28.4 MCHC 32.7 RDW Std Deviation 43.1 RDW Coeff of Abdirahman 13.6 Plt Count 255 MPV 9.5 Immature Gran % (Auto) 0.700 Neut % (Auto) 66.6 Lymph % (Auto) 23.5 [place] % (Auto) 6.9 Eos % (Auto) 1.6 Baso % (Auto) 0.7 Absolute Neuts (auto) 4.9 Absolute Lymphs (auto) 1.74 Nucleated RBC % 0 Sodium 142 Potassium 3.9 Chloride 107 Carbon Dioxide 25.0 Anion Gap 10 BUN 12 Creatinine 0.87 Estim Creat Clear Calc 130.54 Est GFR (MDRD) Af Amer 94 Est GFR (MDRD) Non-Af 78 BUN/Creatinine Ratio 13.7 Glucose 159 H Calcium 9.8 Total Bilirubin 0.60 AST 40 H ALT 74 H Alkaline Phosphatase 109 Total Protein 7.4 Albumin 3.7 Globulin 3.7 Albumin/Globulin Ratio 1.0 Urine Color Yellow Urine Clarity Clear Urine pH 6.0 Ur Specific [employer] 1.015 Urine Protein Negative Urine Glucose (UA) Normal Urine Ketones Negative Urine Occult Blood Negative Urine Nitrite Negative Urine Bilirubin Negative Urine Urobilinogen Normal Ur Leukocyte Esterase 25 H Urine RBC 0 SEEN Urine WBC 0 SEEN Ur Squamous Epith Cells 0-5 SEEN Urine Bacteria 2+ Hyaline Casts 0-5 SEEN Urine Mucus 0 SEEN Patient has 2+ bacteria. The urine specimen is a good specimen. We will treat with dose of Rocephin. CBC and comprehensive metabolic panel unremarkable. Patient was informed the cause of the tingling prickly sensation is unknown. The upper back pain may be due to a urinary tract infection and reason for IV antibiotic. - Medical Decision Making Chest x-ray was obtained to rule out pulmonary etiology. CBC to rule out anemia. Electrolytes to explain her tingling electrical sensation. Since patient has not had a urinary tract infection in greater than a year cultures were not ordered. ED Disposition - Plan for ED Patient: Disposition: Home or Assisted Living Diagnosis: Somatic complaints, multiple, Bacteria in urine, Dyspnea Instructions: ED Symptoms With Uncertain Cause, ED Dyspnea Prescriptions: Nitrofurantoin Macrocrystals [Macrobid] 100 mg PO Q12 #10 capsule Prescription Printed Referrals: Yina Brock MD [Primary Care Provider] - 3-5 Days if not improving Additional Instructions: Because of your symptoms is uncertain. There is bacteria in her urine and reason for IV antibiotic and prescription for antibiotic.
[2020-06-01 20:00] LABS: Absolute Lymphocyte Count 1.74 X10^3/uL (0.83-4.51); Absolute Neutrophil Count 4.9 X10^3/uL (2.0-7.7); Basophil# 0.05 X10^3/uL; Basophil% 0.7 % (0-1); Eosinophil# 0.12 X10^3/uL; Eosinophils% 1.6 % (0-5); Hematocrit 39.8 % (37-47); Lymphocyte # 1.74 X10^3/ul (4.0); Lymphocyte % 23.5 % (19-41); Mean Corp Hgb Conc 32.7 g/dL (32-36); Mean Corpuscular Hgb 28.4 pg (27.0-32.0); Mean Corpuscular Volume 86.9 fL (81-99); Mean Platelet Vol. 9.5 fl (6.2-12.0); Monocyte# 0.51 X10^3/uL; Monocyte% 6.9 % (0-10); NRBC Flagged by Analyzer 0 % (0-5); Neutrophil # 4.93 X10^3/uL (2.7-7.7); Neutrophil % 66.6 % (47-70); Platelet Count 255 K/mm3 (150-450); RBC Distribution Width CV 13.6 % (11.6-14.6); RBC Distribution Width SD 43.1 fl (35.1-43.9); Red Blood Count 4.58 M/mm3 (4.2-5.4); White Blood Count 7.4 K/mm3 (4.4-11.0)
[2020-06-01 20:06] LABS: Mucous, Urine 0 SEEN /hpf (<or=2+); Red Blood Cells-Urine 0 SEEN /hpf (0-5); White Blood Cells 0 SEEN /hpf (0-5)
[2020-06-01 20:10] LABS: Color, Urine Yellow (Yellow); Glucose, Dipstick Normal (Normal); Ketone-Dipstick Negative (Negative); Leukocyte Esterase-Dipstick 25 /ul (Negative); Nitrite-Dipstick Negative (Negative); Occult Blood-Urine Negative /ul (Negative); Protein-Dipstick Negative (Negative); Specific Gravity, Urine 1.015 (1.002-1.030); Urine Bilirubin Dipstick Negative (Negative); Urine Clarity Clear (Clear); Urine Urobilinogen Normal (Normal)
[2020-06-01 20:14] LABS: AST(SGOT) 40 U/L (15-37); Alanine Aminotransfer ALT/SGPT 74 U/L (13-56); Albumin, Serum 3.7 g/dL (3.2-5.0); Alkaline Phosphatase 109 U/L (45-117); Anion Gap 10 (5-15); BUN 12 mg/dL (7-18); BUN/Creat Ratio 13.7 RATIO (10-20); Calcium,Total 9.8 mg/dL (8.5-10.1); Chloride 107 mmol/L (98-107); Creatinine, Serum 0.87 mg/dL (0.55-1.02); EST Glomerular Filtration Rate 78 mL/min (>60); Est Glom Filt Rate - Afr Amer 94 mL/min (>60); Estimated Creatinine Clearance 130.54 ml/min; Globulin 3.7 g/dL (2.2-4.2); Glucose 159 mg/dL (74-106); Potassium 3.9 mmol/L (3.5-5.1); Protein, Total 7.4 g/dL (6.4-8.2); Sodium Level 142 mmol/L (136-145)
--- NOTE | 2020-06-01 20:18 | RAD_ITS ---
INDICATION: Shortness of breath EXAMINATION/TECHNIQUE: X-RAY - XR Chest 2 Views COMPARISON: 03/25/2020. FINDINGS: The lungs are clear. The cardiomediastinal silhouette is unremarkable. No pleural effusion or pneumothorax. No acute osseous abnormalities. RAD/Chest PA and Lateral IMPRESSION: No acute radiographic abnormalities. Electronically Signed: Feroz Kennedy MD at 20:32 EDT Tel , Service support ,
[2020-06-01 20:40] LABS: Squamous Epithelial Cells - UA 0-5 SEEN /hpf (5-10)
[2020-06-01 20:41] LABS: Bacteria 2+ /hpf (None Seen); Hyaline Cast 0-5 SEEN /lpf (0-5)
[2020-06-01 21:15] VITALS: PULSE 93; RESP 18; O2SAT 98
[2020-06-01] MEDS: Ceftriaxone 1 GM/50 ML BAG IV (21:16)
[2020-06-01 21:47] VITALS: BP 125/81; PULSE 69; RESP 15; O2SAT 98
== END 2020-06-01 21:48 | disposition home or self-care (01) ==
PROVIDERS: Emergency Provider Emergency Medicine; PCP Internal Medicine
DX: R20.2 Paresthesia of skin (principal); R82.71 Bacteriuria; R11.0 Nausea; R06.00 Dyspnea, unspecified; E66.9 Obesity, unspecified; E03.9 Hypothyroidism, unspecified; G47.33 Obstructive sleep apnea (adult) (pediatric); Q25.49 Other congenital malformations of aorta; Q96.9 Turner's syndrome, unspecified; Q23.9 Congenital malformation of aortic and mitral valves, unspecified; Z87.19 Personal history of other diseases of the digestive system; Z79.82 Long term (current) use of aspirin; Z79.899 Other long term (current) drug therapy
CPT/HCPCS: 71046; 80053; 81001; 85025; 96365; 99283

== ENCOUNTER 2020-12-16 19:38 | Emergency (ER) | payer MEDICARE, MEDICAID, SELFPAY ==
[2020-12-16 19:39] VITALS: BP 105/88; PULSE 84; RESP 18; TEMP 35.9; O2SAT 100; BMI 43.2
[2020-12-16 21:06] LABS: Bacteria 0 SEEN /hpf (None Seen); Mucous, Urine 0 SEEN /hpf (<or=2+); Red Blood Cells-Urine 0 SEEN /hpf (0-5)
[2020-12-16 21:13] LABS: Color, Urine Yellow (Yellow); Glucose, Dipstick Normal (Normal); Ketone-Dipstick Negative (Negative); Leukocyte Esterase-Dipstick 500 /ul (Negative); Nitrite-Dipstick Negative (Negative); Occult Blood-Urine 10 /ul (Negative); Protein-Dipstick 15 mg/dl (Negative); Specific Gravity, Urine 1.015 (1.002-1.030); Urine Bilirubin Dipstick Negative (Negative); Urine Clarity Clear (Clear); Urine Urobilinogen Normal (Normal)
[2020-12-16 21:18] LABS: Absolute Lymphocyte Count 2.15 X10^3/uL (0.83-4.51); Absolute Neutrophil Count 8.2 X10^3/uL (2.0-7.7); Basophil# 0.08 X10^3/uL; Basophil% 0.7 % (0-1); Eosinophil# 0.19 X10^3/uL; Eosinophils% 1.7 % (0-5); Hemoglobin 14.7 g/dL (12.0-15.0); Lymphocyte # 2.15 X10^3/ul (0.83-4.51); Mean Corp Hgb Conc 32.7 g/dL (32-36); Mean Corpuscular Hgb 28.2 pg (27.0-32.0); Mean Corpuscular Volume 86.2 fL (81-99); Mean Platelet Vol. 9.8 fl (6.2-12.0); Monocyte# 0.62 X10^3/uL; Monocyte% 5.5 % (0-10); NRBC Flagged by Analyzer 0 % (0-5); Neutrophil # 8.21 X10^3/uL (2.7-7.7); Neutrophil % 72.3 % (47-70); Platelet Count 328 K/mm3 (150-450); RBC Distribution Width CV 13.6 % (11.6-14.6); RBC Distribution Width SD 42.7 fl (35.1-43.9); Red Blood Count 5.22 M/mm3 (4.2-5.4); White Blood Count 11.3 K/mm3 (4.4-11.0)
[2020-12-16 21:21] LABS: Renal Epithelial Cells 0-5 SEEN /hpf (0-5); White Blood Cells 25-50 SEEN /hpf (0-5)
[2020-12-16 21:22] LABS: Squamous Epithelial Cells - UA 0-5 SEEN /hpf (5-10)
[2020-12-16 21:31] LABS: Internal QC Validated? YES +Cl - CLEAR BKGD; Pregnancy, Serum, hCG Quali. NEGATIVE Negative
[2020-12-16 21:41] VITALS: BP 124/101; PULSE 88; RESP 17; TEMP 36.9; O2SAT 100
[2020-12-16 21:43] LABS: Anion Gap 11 (5-15); BUN 12 mg/dL (7-18); BUN/Creat Ratio 16.6 RATIO (10-20); Calcium,Total 10.7 mg/dL (8.5-10.1); Chloride 104 mmol/L (98-107); Creatinine, Serum 0.72 mg/dL (0.55-1.02); EST Glomerular Filtration Rate 96 mL/min (>60); Est Glom Filt Rate - Afr Amer 117 mL/min (>60); Estimated Creatinine Clearance 160.11 ml/min; Glucose 102 mg/dL (74-106); Potassium 4.1 mmol/L (3.5-5.1); Sodium Level 139 mmol/L (136-145)
--- NOTE | 2020-12-16 21:57 | US_ITS ---
STUDY: ABDOMINAL ULTRASOUND - RIGHT UPPER QUADRANT REASON FOR VISIT: Female, 35 years old PAIN-RT SIDE TECHNIQUE: Ultrasound evaluation of the right upper quadrant was performed with real-time and static queen-scale imaging. TECHNICAL QUALITY: Adequate. COMPARISON: CT of abdomen and pelvis dated October 09, 2016 FINDINGS: Liver: The liver measures 15.8 cm. There is increased echogenicity consistent with fatty infiltration. The bile ducts are within normal limits. There is hepatic color flow. The direction of portal flow is hepatopetal. There is no demonstrated mass lesion. Gallbladder: Normal distended gallbladder. The gallbladder wall measures 2 mm. There is a negative sonographic Carbajal''s sign. There is no pericholecystic fluid. There are no gallstones. Common Bile Duct (C.B.D.): The common bile duct measures 7 mm. Pancreas: Normal size of the head and body of the pancreas. The tail of the pancreas is not seen on this study. There is normal echogenicity of the pancreas. There is no demonstrated pancreatic mass or cyst. Right Kidney: Normal size of the right kidney. The right kidney measures 12.0 x 5.4 x 5.3 cm. Normal renal cortex. The right cortex measures 1.5 cm. There is no demonstrated renal mass or cyst. There is no right hydronephrosis. US/Gallbladder IMPRESSION: 1. Fatty infiltration of the liver. Electronically Signed: Romie Ames MD at 23:25 EDT , Service support ,
[2020-12-16] MEDS: 0.9% Normal Saline 1,000 ML 1000 ML IV (22:25)
[2020-12-16] MEDS: Morphine 4 MG/ML Syringe IV (22:27)
[2020-12-16] MEDS: Ondansetron 4 MG/2 ML Vial IV (22:27)
[2020-12-16 22:40] LABS: AST(SGOT) 45 U/L (15-37); Alanine Aminotransfer ALT/SGPT 75 U/L (13-56); Albumin, Serum 4.2 g/dL (3.2-5.0); Alkaline Phosphatase 125 U/L (45-117); Globulin 4.4 g/dL (2.2-4.2); Lipase 318 U/L (73-393); Protein, Total 8.6 g/dL (6.4-8.2)
[2020-12-16 23:04] VITALS: BP 129/90; PULSE 78; O2SAT 99
--- NOTE | 2020-12-17 00:10 | ED.VIS.GI ---
HPI HPI - GI History of Present Illness Chief Complaint: Abd Pain Informant: patient Abdominal Pain/Flank Pain Onset: Today Context: Sudden Onset Timing: Continuous Quality: Sharp Location: RUQ Worsened by: Food Relieved by: Nothing Nausea/Vomiting/Emesis GI Symptom: Positive for Nausea; Negative for Vomiting Quality: Negative for Coffee ground and Hematemesis Diarrhea/Melena/Hematochezia GI Symptom: Positive for Diarrhea; Negative for Melena and Hematochezia Stool Quality: Negative for Black, Maroon and BRB per rectum Narrative Narrative: Patient presents with right upper quadrant abdominal pain that began today. Patient states it began rather suddenly today. Patient states it is sharp. Patient states it is over the right upper abdomen. Patient states nothing makes it worse and nothing makes it better. Patient admits to nausea but denies any vomiting or hematemesis. Patient denies any coffee-ground emesis. Patient admits to diarrhea. Patient denies any melena or hematochezia. Patient states her diarrhea is loose and watery. Patient states she last ate approximately 11 AM today. Patient states she ate peanut butter toast and milk. Patient states her pain began around 4 PM today. PFSH PFSH Medical History no medical history Home Medications albuterol sulfate [Proventil HFA] 6.7 g IH PRN PRN 02/21/13 [History Last Taken Unknown] metoprolol tartrate 50 mg PO TID 02/21/13 [History Last Taken 03/26/15] albuterol sulfate 2.5 mg INHALATION Q4HWA.RT PRN #25 [email or web address]. 01/01/16 [Rx Last Taken Unknown] losartan 50 mg PO DAILY 10/09/16 [History Last Taken 03/30/18 08:00] atorvastatin 20 mg PO QHS 03/25/18 [History Last Taken 03/30/18 22:00] levothyroxine 150 mcg PO DAILY 03/25/18 [History Last Taken 03/30/18 08:00] aspirin 81 mg PO QHS 03/28/18 [History Last Taken 03/30/18 22:00] pantoprazole 20 mg PO DAILY 10/01/18 [History Last Taken Unknown] ciprofloxacin HCl 500 mg PO BID #14 tablet 12/17/20 [Rx Last Taken Unknown] Allergy/AdvReac Type Severity Reaction Status Date / Time doxycycline AdvReac Abd Verified 12/16/20 19:42 cramps/diarrhea Surgical History (Updated 12/17/20 @ 00:[address] eDv Fay DO) Hx of appendectomy Hx of tonsillectomy Hx of tympanostomy tubes Social History Smoking Status: Never smoker ROS ROS ED Constitutional Constitutional ED: Denies chills or fever(s) Eyes Eyes: Denies blurry vision or change in vision ENT ENT ED: Denies rhinorrhea or sore throat Cardiovascular Cardiovascular: Reports chest pain; Denies palpitations Respiratory/Chest Respiratory/Chest: Denies cough or dyspnea Gastrointestinal Gastrointestinal: Reports abdominal pain, diarrhea and nausea; Denies vomiting Genitourinary Genitourinary ED: Denies dysuria or hematuria Musculoskeletal Musculoskeletal: Reports back pain and neck pain Integumentary Denies abscess or rash Neurologic Neurologic: Denies headache(s) or weakness Allergic/Immunologic Allergic/Immunologic ED: Denies mouth swelling or urticaria EXAM Physical Exam Const Vital Signs: 12/16/20 19:39 12/16/20 21:41 12/16/20 23:04 Temperature 96.7 F L 98.4 F Temperature Source Temporal Temporal Pulse Rate 84 88 78 Respiratory Rate 18 17 Blood Pressure 105/88 H 124/101 H 129/90 H Blood Pressure Mean 93 108 103 Pulse Ox 100 100 99 Oxygen Delivery Method Room Air Room Air Room Air Positive well nourished, well developed and obese General Appearance ED: well developed Nutritional Appearance: obese HEENT Reports moist mucous membranes Neck supple and no JVD Resp normal respiratory effort and clear to auscultation bilaterally Cardio regular rate, regular rhythm and no murmurs GI normal to inspection, nondistended, normoactive bowel sounds and non-distended Auscultation: normoactive bowel sounds Palpation: soft and tender RLQ, RUQ and Carbajal's sign; Negative for guarding or rebound tenderness present Extremity normal to inspection General Extremety ED: Negative for edema or tenderness General Extremity: Negative for edema Neuro oriented x3, CN's II-XII intact bilaterally and no sensory deficits noted Sensorium / Orientation: alert Motor Exam: strength 5/5 throughout Psych mental status grossly normal Skin no rashes or lesions noted MDM MDM MDM Narrative Medical decision making narrative: Patient was given IV fluids, morphine, and Zofran here. CBC shows a mild leukocytosis of 11.3. Basic metabolic profile is within normal limits. Hepatic profile was basically normal. Lipase was normal. Serum hCG was negative. Urinalysis shows leukocyte esterase of 500 with 25-50 white blood cells. Right upper quadrant ultrasound was obtained. There is no evidence of cholecystitis or cholelithiasis. This was interpreted by the radiologist and reviewed by myself. Patient was advised of her findings. Patient was given a dose of Rocephin here. Patient was given a prescription for Cipro. Patient was instructed to drink plenty of fluids. Patient was instructed to start with a bland diet and advance as tolerated. Patient was instructed to follow-up with her primary care physician in 3 to 5 days. Patient understood and was agreeable with the plan. All questions were answered. Lab Data Labs: Laboratory Results - last 24 hr 12/16/20 12/16/20 12/16/20 20:35 21:10 21:10 WBC 11.3 H RBC 5.22 Hgb 14.7 Hct 45.0 MCV 86.2 MCH 28.2 MCHC 32.7 RDW Std Deviation 42.7 RDW Coeff of Abdirahman 13.6 Plt Count 328 MPV 9.8 Immature Gran % (Auto) 0.800 Neut % (Auto) 72.3 H Lymph % (Auto) 19.0 [place] % (Auto) 5.5 Eos % (Auto) 1.7 Baso % (Auto) 0.7 Absolute Neuts (auto) 8.2 H Absolute Lymphs (auto) 2.15 Nucleated RBC % 0 Sodium 139 Potassium 4.1 Chloride 104 Carbon Dioxide 24.0 Anion Gap 11 BUN 12 Creatinine 0.72 Estim Creat Clear Calc 160.11 Est GFR (MDRD) Af Amer 117 Est GFR (MDRD) Non-Af 96 BUN/Creatinine Ratio 16.6 Glucose 102 Calcium 10.7 H Total Bilirubin Direct Bilirubin AST ALT Alkaline Phosphatase Total Protein Albumin Globulin Lipase Serum , Qual Urine Color Yellow Urine Clarity Clear Urine pH 6.0 Ur Specific [place] 1.015 Urine Protein 15 H Urine Glucose (UA) Normal Urine Ketones Negative Urine Occult Blood 10 H Urine Nitrite Negative Urine Bilirubin Negative Urine Urobilinogen Normal Ur Leukocyte Esterase 500 H Urine RBC 0 SEEN Urine WBC 25-50 SEEN Ur Squamous Epith Cells 0-5 SEEN Ur Renal Epithelial Cell 0-5 SEEN Urine Bacteria 0 SEEN Urine Mucus 0 SEEN 12/16/20 12/16/20 21:10 21:10 WBC RBC Hgb Hct MCV MCH MCHC RDW Std Deviation RDW Coeff of Abdirahman Plt Count MPV Immature Gran % (Auto) Neut % (Auto) Lymph % (Auto) Craig % (Auto) Eos % (Auto) Baso % (Auto) Absolute Neuts (auto) Absolute Lymphs (auto) Nucleated RBC % Sodium Potassium Chloride Carbon Dioxide Anion Gap BUN Creatinine Estim Creat Clear Calc Est GFR (MDRD) Af Amer Est GFR (MDRD) Non-Af BUN/Creatinine Ratio Glucose Calcium Total Bilirubin 1.00 Direct Bilirubin 0.20 AST 45 H ALT 75 H Alkaline Phosphatase 125 H Total Protein 8.6 H Albumin 4.2 Globulin 4.4 H Lipase 318 Serum , Qual NEGATIVE Urine Color Urine Clarity Urine pH Ur Specific [place] Urine Protein Urine Glucose (UA) Urine Ketones Urine Occult Blood Urine Nitrite Urine Bilirubin Urine Urobilinogen Ur Leukocyte Esterase Urine RBC Urine WBC Ur Squamous Epith Cells Ur Renal Epithelial Cell Urine Bacteria Urine Mucus Radiography Diagnostic Testing: Clinical Impression(s) from Imaging Studies Gallbladder Ultrasound 12/16/20 21:57 IMPRESSION: 1. Fatty infiltration of the liver. Electronically Signed: Romie Ames MD at 23:25 EDT , Service support , Discharge Plan Triage Chief Complaint: Abd Pain ED Provider: Dev Fay Dx/Rx/DC Orders Clinical Impression: Urinary tract infection, Right upper quadrant abdominal pain Instructions: ED Abdominal Pain Unkn Cause Fem, ED CYSTITIS Female Adult Prescriptions: New ciprofloxacin HCl [ciprofloxacin HCl] 500 MG tablet 500 mg PO BID Qty: 14 RF: 0 No Action albuterol sulfate [Proventil HFA] 6.7 GM HFA aerosol inhaler 6.7 g IH PRN PRN (Reason: Asthma) RF: 0 metoprolol tartrate 25 MG tablet 50 mg PO TID RF: 0 albuterol sulfate 2.5 MG/3 ML solution for nebulization 2.5 mg inhalation Q4HWA.RT PRN (Reason: Wheezing) Qty: 25 RF: 0 losartan 25 MG tablet 50 mg PO DAILY RF: 0 atorvastatin 20 MG tablet 20 mg PO QHS RF: 0 levothyroxine 150 MCG tablet 150 mcg PO DAILY RF: 0 aspirin 81 MG tablet,chewable 81 mg PO QHS RF: 0 pantoprazole 40 MG tablet 20 mg PO DAILY RF: 0 Primary Care Provider: Yina Brock Referrals: Yina Brock MD [Primary Care Provider] - 3-5 Days Disposition Disposition: Home, Self Care
[2020-12-17] MEDS: Ceftriaxone 1 GM/50 ML BAG IV (00:11)
== END 2020-12-17 00:44 | disposition home or self-care (01) ==
PROVIDERS: Emergency Provider Emergency Medicine; PCP Internal Medicine
DX: N39.0 Urinary tract infection, site not specified (principal); R10.11 Right upper quadrant pain; E66.9 Obesity, unspecified; Z68.41 Body mass index [BMI] 40.0-44.9, adult
CPT/HCPCS: 76705; 80048; 80076; 81001; 83690; 84703; 85025; 96361; 96365; 96375; 99281; 99282; J7030; J7050; A4216; J2405

== ENCOUNTER 2021-07-22 18:00 | Emergency (ER) | payer MEDICARE, MEDICAID, SELFPAY ==
[2021-07-22 18:01] VITALS: BP 119/85; PULSE 75; RESP 14; TEMP 36.9; O2SAT 100; BMI 41.8
--- NOTE | 2021-07-22 18:35 | EKG12_ITS ---
Test Reason : CP Blood Pressure : / mmHG Vent. Rate : 082 BPM Atrial Rate : 082 BPM P-R Int : 136 ms QRS Dur : 076 ms QT Int : 396 ms P-R-T Axes : 003 000 011 degrees QTc Int : 462 ms Normal sinus rhythm Nonspecific ST abnormality Abnormal ECG Confirmed by EUFEMIA HESS, DAVID ([id number]), editor farm journal SHREYA VASQUEZ ([id number]) on 07/26/2021 1:28:45 PM Referred By: KENA Confirmed By:DAVID FALL MD
--- NOTE | 2021-07-22 18:37 | ED.VIS.CHEST ---
HPI History of Present Illness Chief Complaint: Chest Pain Narrative Narrative: Patient presents with her because of chest tightness and nausea that she has had since yesterday evening. She states she has had in the past over the past few weeks to months, but it was most severe when this episode started last evening and tonight it seemed worse. She denies any fevers or chills. No cough. No leg swelling. She states she has past medical history of a heart condition. 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 She has had shortness of breath at rest in the past. She denies any new leg swelling. PFSH PFSH Medical History no medical history Home Medications albuterol sulfate [Proventil HFA] 6.7 g IH PRN PRN 02/21/13 [History Last Taken Unknown] metoprolol tartrate 50 mg PO TID 02/21/13 [History Last Taken 03/26/15] albuterol sulfate 2.5 mg INHALATION Q4HWA.RT PRN #25 vial.neb. 01/01/16 [Rx Last Taken Unknown] losartan 50 mg PO DAILY 10/09/16 [History Last Taken 03/30/18 08:00] atorvastatin 20 mg PO QHS 03/25/18 [History Last Taken 03/30/18 22:00] levothyroxine 150 mcg PO DAILY 03/25/18 [History Last Taken 03/30/18 08:00] aspirin 81 mg PO QHS 03/28/18 [History Last Taken 03/30/18 22:00] pantoprazole 20 mg PO DAILY 10/01/18 [History Last Taken Unknown] metformin 1,000 mg PO BID 07/22/21 [History Last Taken Unknown] semaglutide [Ozempic] 0.25 mg SUBCUT FR 07/22/21 [History Last Taken Unknown] Allergy/AdvReac Type Severity Reaction Status Date / Time doxycycline AdvReac Abd Verified 07/22/21 18:01 cramps/diarrhea Surgical History (Updated 12/17/20 @ 00:[address] Dev Fay, DO) Hx of appendectomy Hx of tonsillectomy Hx of tympanostomy tubes Social History Smoking Status: Never smoker EXAM Physical Exam Const Vital Signs: 07/22/21 18:01 07/22/21 18:38 Temperature 98.4 F Temperature Source Temporal Pulse Rate 75 Respiratory Rate 14 Blood Pressure 119/85 H Blood Pressure Mean 96 Pulse Ox 100 100 Oxygen Delivery Method Room Air Room Air MDM MDM MDM Narrative Medical decision making narrative: EKG demonstrates normal sinus rhythm at 82 bpm without ectopy or acute ST changes. CBC is grossly normal with a normal white count of 6.7, hemoglobin normal at 12.6, hematocrit 37.4. Platelet count normal at 255. D-dimer negative at less than 0.27. Potassium slightly low at 3.4 with a chloride of 113. Normal BUN and creatinine. Her high-sensitivity troponin is less than 3. According to the guidelines as this is greater than a 3-hour troponin I do not feel that a delta troponin is indicated. BNP normal at 41. Chest x-ray interpreted by myself/ED physician shows no acute process, no pneumothorax or infiltrate. Her pulse ox is 100% on room air. I feel she can be discharged safely home with follow-up. She has had the diagnosis of shortness of breath at rest previously. She states she has an inhaler at home that she can use. Given the negative work-up here, I feel she can be discharged safely home with follow-up. Return instructions were reviewed. Patient and her are agreeable to the plan. Disposition is discharged home in stable condition. Lab Data Attestation: I reviewed the patient's lab results. Labs: Laboratory Results - last 24 hr 07/22/21 07/22/21 07/22/21 18:46 18:46 18:46 WBC 6.7 RBC 4.32 Hgb 12.6 Hct 37.4 MCV 86.6 MCH 29.2 MCHC 33.7 RDW Std Deviation 42.6 RDW Coeff of Abdirahman 13.6 Plt Count 255 MPV 9.7 Immature Gran % (Auto) 0.300 Neut % (Auto) 63.2 Lymph % (Auto) 26.9 [place] % (Auto) 7.2 Eos % (Auto) 1.8 Baso % (Auto) 0.6 Absolute Neuts (auto) 4.2 Absolute Lymphs (auto) 1.79 Nucleated RBC % 0 D-Dimer Quant (PE/DVT) < 0.27 L Sodium 143 Potassium 3.4 L Chloride 113 H Carbon Dioxide 22.0 Anion Gap 8 BUN 11 Creatinine 0.74 Estim Creat Clear Calc 149.04 Est GFR (MDRD) Af Amer 113 Est GFR (MDRD) Non-Af 93 BUN/Creatinine Ratio 14.8 Glucose 143 H Calcium 9.6 Troponin I High Sens < 3 L B-Natriuretic Peptide 07/22/21 18:46 WBC RBC Hgb Hct MCV MCH MCHC RDW Std Deviation RDW Coeff of Abdirahman Plt Count MPV Immature Gran % (Auto) Neut % (Auto) Lymph % (Auto) [place] % (Auto) Eos % (Auto) Baso % (Auto) Absolute Neuts (auto) Absolute Lymphs (auto) Nucleated RBC % D-Dimer Quant (PE/DVT) Sodium Potassium Chloride Carbon Dioxide Anion Gap BUN Creatinine Estim Creat Clear Calc Est GFR (MDRD) Af Amer Est GFR (MDRD) Non-Af BUN/Creatinine Ratio Glucose Calcium Troponin I High Sens B-Natriuretic Peptide 41.4 Radiography Diagnostic Testing: Clinical Impression(s) from Imaging Studies Chest X-Ray 07/22/21 18:55 IMPRESSION: Nonacute portable x-ray examination of the chest. Electronically Signed: Waldo Rapp MD ([place]) at 19:05 EDT Reading Location ID and State: [facility] / [place] , Service support , Discharge Plan Triage Chief Complaint: Chest Pain ED Provider: Raj Jefferson Dx/Rx/DC Orders Clinical Impression: Chest tightness, Shortness of breath at rest, Hypokalemia Instructions: ED Chest Pain, Noncardiac, ED Dyspnea, ED Hypokalemia Prescriptions: No Action albuterol sulfate [Proventil HFA] 6.7 GM HFA aerosol inhaler 6.7 g IH PRN PRN (Reason: Asthma) RF: 0 metoprolol tartrate 25 MG tablet 50 mg PO TID RF: 0 albuterol sulfate 2.5 MG/3 ML solution for nebulization 2.5 mg inhalation Q4HWA.RT PRN (Reason: Wheezing) Qty: 25 RF: 0 losartan 25 MG tablet 50 mg PO DAILY RF: 0 atorvastatin 20 MG tablet 20 mg PO QHS RF: 0 levothyroxine 150 MCG tablet 150 mcg PO DAILY RF: 0 aspirin 81 MG tablet,chewable 81 mg PO QHS RF: 0 pantoprazole 40 MG tablet 20 mg PO DAILY RF: 0 metformin 500 mg tablet extended release 24 hr 1,000 mg PO BID RF: 0 Ozempic 0.25 mg or 0.5 mg(2 mg/1.5 mL) pen injector 0.25 mg SUBCUT FR RF: 0 Primary Care Provider: Yina Brock Referrals: Yina Brock MD [Primary Care Provider] - 1-2 Days if not improving Disposition Disposition: Home, Self Care
[2021-07-22 18:38] VITALS: O2SAT 100
[2021-07-22 18:55] LABS: Absolute Lymphocyte Count 1.79 X10^3/uL (0.83-4.51); Absolute Neutrophil Count 4.2 X10^3/uL (2.0-7.7); Basophil# 0.04 X10^3/uL; Basophil% 0.6 % (0-1); Eosinophil# 0.12 X10^3/uL; Eosinophils% 1.8 % (0-5); Hematocrit 37.4 % (37-47); Hemoglobin 12.6 g/dL (12.0-15.0); Lymphocyte # 1.79 X10^3/ul (0.83-4.51); Lymphocyte % 26.9 % (19-41); Mean Corp Hgb Conc 33.7 g/dL (32-36); Mean Corpuscular Hgb 29.2 pg (27.0-32.0); Mean Corpuscular Volume 86.6 fL (81-99); Mean Platelet Vol. 9.7 fl (6.2-12.0); Monocyte# 0.48 X10^3/uL; Monocyte% 7.2 % (0-10); NRBC Flagged by Analyzer 0 % (0-5); Neutrophil # 4.21 X10^3/uL (2.7-7.7); Neutrophil % 63.2 % (47-70); Platelet Count 255 K/mm3 (150-450); RBC Distribution Width CV 13.6 % (11.6-14.6); RBC Distribution Width SD 42.6 fl (35.1-43.9); Red Blood Count 4.32 M/mm3 (4.2-5.4); White Blood Count 6.7 K/mm3 (4.4-11.0)
--- NOTE | 2021-07-22 18:55 | RAD_ITS ---
STUDY: X-RAY CHEST REASON FOR EXAM: Female, 36 years old. chest pain TECHNIQUE: AP COMPARISON: 06/01/2020 FINDINGS: EKG leads project over the chest. The lungs are clear and expanded. There is no demonstrated pleural abnormality. Normal size heart. Normal mediastinum and tracy. Normal visualized pulmonary arteries. There is atherosclerotic tortuosity of the aortic arch and descending thoracic aorta. No acute bony process. There is no demonstrated abnormality of the visualized soft tissue structures of the upper abdomen. RAD/Chest 1 View (Portable) IMPRESSION: Nonacute portable x-ray examination of the chest. Electronically Signed: Waldo Rapp MD ([place]) at 19:05 EDT ,
[2021-07-22 19:10] LABS: D-Dimer Quantitative (DVT/PE) < 0.27 FEU/ug/m (0.27-0.49)
[2021-07-22 19:17] LABS: Anion Gap 8 (5-15); BUN 11 mg/dL (7-18); BUN/Creat Ratio 14.8 RATIO (10-20); Calcium,Total 9.6 mg/dL (8.5-10.1); Chloride 113 mmol/L (98-107); Creatinine, Serum 0.74 mg/dL (0.55-1.02); EST Glomerular Filtration Rate 93 mL/min (>60); Est Glom Filt Rate - Afr Amer 113 mL/min (>60); Estimated Creatinine Clearance 149.04 ml/min; Glucose 143 mg/dL (74-106); Potassium 3.4 mmol/L (3.5-5.1); Sodium Level 143 mmol/L (136-145); Troponin-I HS (w/2H Reflex) < 3 pg/mL (3.0-54.0)
[2021-07-22 19:23] LABS: BNP,B-Type NATRIURETIC PEPTIDE 41.4 pg/mL (0-100)
[2021-07-22 20:22] VITALS: BP 128/86; PULSE 88; RESP 14; TEMP 36.9; O2SAT 98
[2021-07-22] MEDS: Potassium Chloride Oral Tablet 20 MEQ 40 MEQ PO (20:26)
[2021-07-22 20:51] LABS: Reflex Troponin-HS? (from REC) Y
== END 2021-07-22 20:29 | disposition home or self-care (01) ==
PROVIDERS: Emergency Provider Emergency Medicine; PCP Internal Medicine; Visit Provider Emergency Medicine
DX: R07.89 Other chest pain (principal); E87.6 Hypokalemia; Q96.9 Turner's syndrome, unspecified; G47.33 Obstructive sleep apnea (adult) (pediatric); Z79.899 Other long term (current) drug therapy; Q23.1 Congenital insufficiency of aortic valve; R06.02 Shortness of breath; Q23.9 Congenital malformation of aortic and mitral valves, unspecified; Q25.49 Other congenital malformations of aorta
CPT/HCPCS: 71045; 80048; 83880; 84484; 85025; 85379; 93005; 99285; A4216